=== PATIENT | male | born 1965 | race Two or more races ===

== ENCOUNTER 2020-09-10 15:00 | Outpatient (RCR) | payer MEDICAID, SELFPAY | END 2020-09-30 09:41 | disposition other institution (70) | LOC: HO.PT 15:00 | PROVIDERS: PCP Nurse Practitioner Family; Visit Provider Emergency Medicine | DX: M25.561 Pain in right knee (principal); G89.29 Other chronic pain | CPT/HCPCS: 97110; 97140 ==

== ENCOUNTER 2020-09-19 18:52 | Outpatient (REF) | payer MEDICAID, SELFPAY ==
--- NOTE | 2020-09-19 18:53 | MR_ITS ---
EXAMINATION: MR KNEE WITHOUT CONTRAST, RIGHT CLINICAL INFORMATION: Right knee pain. COMPARISON: 08/06/2020 TECHNIQUE: MRI of the knee without contrast was performed using routine sequences on a high-field scanner. FINDINGS: MENISCI: Medial Meniscus: There is abnormal increased intrasubstance signal within the medial meniscal body. A subtle linear focus of increased signal (image 10/30 of series 5) contacts the superior surface near the free edge margin, concerning for a small horizontal tear. Lateral Meniscus: There is a subtle horizontal free edge tear at the lateral meniscal body. Meniscal body is partially extruded laterally. A small longitudinal tear is also suspected in the superior surface of the anterior horn lateral meniscus as well. A parameniscal cyst at the anterolateral margin of the lateral meniscus measures 3 cm in length and 1 x 0.7 cm in cross-section. Fraying of the undersurface of the posterior root insertion is noted. LIGAMENTS: Cruciate: Intact Collateral: Intact EXTENSOR MECHANISM: Insall-Salvati ratio is 0.75, indicating patella baja. Enthesopathic spurring is present at the quadriceps tendon insertion on the patella. There is mild patellar tendinosis at the origin on the patella. ARTICULAR CARTILAGE/BONE: Patellofemoral Compartment: There is mild to moderate generalized chondral thinning at the patella, more pronounced at the lateral patellar facet, with full-thickness chondral fissuring at the lateral facet and median ridge. Small marginal osteophytes. Mild matter, thinning is also evident at the trochlea, more pronounced at the lateral facet and central trochlear groove with foci of fullness condyle fissuring and small foci of subchondral cystic change. Medial Compartment: Small marginal osteophytes. There is mild chondral thinning at the anterior half of the medial femoral condyle weightbearing surface. Lateral Compartment: There is mild to moderate articular cartilage loss at the posterior third of the lateral tibial plateau with full-thickness fissuring and subchondral edema. More mild chondral thinning is present at the lateral femoral condyle weightbearing surface with full-thickness chondral fissuring. Additional chondral fissuring is present at the posterior nonweightbearing surface along its superior margin. JOINT FLUID AND BURSAE: Small joint effusion. No Carpenter's cyst. There is a 1.3 x 0.5 x 0.5 cm chondral fragment in the popliteus tendon sheath. MR/MR knee RT wo con IMPRESSION: 1. Horizontal and longitudinal tear at the body and anterior horn of the lateral meniscus, respectively, with an associated 3 cm parameniscal cyst 2. Probable small horizontal tear at the junction of the posterior horn and body of the medial meniscus. 3. Mild to moderate patellofemoral and lateral compartment osteoarthritis. 4. Small joint effusion. 5. Patella baja 6. A 1.3 cm loose body in the popliteus tendon sheath.
== END 2020-09-19 18:53 | disposition home or self-care (01) ==
LOC: HO.MRI 18:52
PROVIDERS: PCP Family Medicine; Visit Provider Family Medicine
DX: M25.561 Pain in right knee (principal)
CPT/HCPCS: 73721

== ENCOUNTER 2020-11-11 15:09 | Outpatient (REF) | payer MEDICAID, SELFPAY | END 2020-11-11 15:10 | disposition home or self-care (01) | LOC: HO.LAB 15:09 | PROVIDERS: Visit Provider Internal Medicine | DX: Z20.828 Contact with and (suspected) exposure to other viral communicable diseases (principal) | CPT/HCPCS: C9803; U0003 ==

== ENCOUNTER → 2020-11-20 15:14 | Outpatient (BNVA) | payer MEDICAID, SELFPAY | PROVIDERS: PCP Family Medicine; Visit Provider Internal Medicine Pulmonary Disease | DX: G47.33 Obstructive sleep apnea (adult) (pediatric) (principal) | CPT/HCPCS: 99202 ==

== ENCOUNTER 2020-12-30 12:55 | Outpatient (REF) | payer MEDICAID, SELFPAY ==
--- NOTE | 2020-12-30 13:00 | XR_ITS ---
EXAMINATION: XR HIP, LEFT CLINICAL INFORMATION: Left hip pain. COMPARISON: None TECHNIQUE: Two views of the left hip. FINDINGS: Moderate joint space narrowing with subchondral sclerosis and subchondral cystic change. Marginal osteophytes. No fracture or dislocation. Symphysis pubis subchondral cirrhosis and marginal osteophytes. XR/XR hip LT min 2V IMPRESSION: Moderate left hip osteoarthritis. Mild degenerative arthritis at the symphysis pubis.
== END 2020-12-30 12:56 | disposition home or self-care (01) ==
LOC: HO.XRAY 12:55
PROVIDERS: PCP Family Medicine; Visit Provider Family Medicine
DX: M25.552 Pain in left hip (principal)
CPT/HCPCS: 73502

== ENCOUNTER → 2020-12-31 13:26 | Outpatient (BNVA) | payer MEDICAID, SELFPAY | PROVIDERS: PCP Family Medicine; Visit Provider Internal Medicine Pulmonary Disease ==

== ENCOUNTER → 2021-01-01 09:59 | Outpatient (REF) | payer MEDICAID, SELFPAY | LOC: HO.SL 09:59 | PROVIDERS: Visit Provider Internal Medicine Pulmonary Disease | DX: G47.33 Obstructive sleep apnea (adult) (pediatric) (principal) | CPT/HCPCS: 95806 ==

== ENCOUNTER → 2021-01-21 08:42 | Outpatient (BNVA) | payer MEDICAID, SELFPAY | PROVIDERS: PCP Family Medicine; Visit Provider Orthopaedic Surgery | DX: M70.62 Trochanteric bursitis, left hip (principal); M54.5 Low back pain | CPT/HCPCS: 99212 ==

== ENCOUNTER → 2021-01-23 12:46 | Outpatient (BNVA) | payer MEDICAID, SELFPAY | PROVIDERS: PCP Family Medicine; Visit Provider Internal Medicine Pulmonary Disease | DX: G47.33 Obstructive sleep apnea (adult) (pediatric) (principal) | CPT/HCPCS: 99212 ==

== ENCOUNTER 2021-02-24 16:00 | Outpatient (RCR) | payer MEDICAID, SELFPAY ==
--- NOTE | 2021-02-12 14:26 | MHC.PT.EP ---
[facility] [place] [facility] [place] [facility] [place] [facility] [address] [place] [address] [phone] F: [phone] F: [phone] F: [phone] F: [phone] Physical Therapy Plan of Care Date of Evaluation: 02/11/21 Date of Surgery: N/A Diagnosis: trochanteric bursitis of L hip Assessment: pt presents to physical therapy with pain, decreased range of motion, decreased strength, impaired functional mobility, impaired postural awareness, and gait deviations. pt is a good candidate for skilled PT due to age, potential remediation of impairments, typical disease/condition progression and prognosis, comorbidities, and motivation. pt would benefit from tailored strengthening and stretching exercise program, functional training, gait training, postural re-training, neuromuscular re-education, modalities as needed for pain, equipment safety demonstration. Frequency and Duration: The patient will be seen 2x/wk for 5 wks Short Term Goals: pt will be I w/ HEP to promote self-management of condition. pt will improve lumbar flexion by 25% to promote ease in reaching for objects on the ground. Lieutenant Governor Goals: pt will report statistically significant improvement of self-reported outcome measure, LEFI, to promote self-management of condition. pt will report <2/10 L hip pain w/ sit to stand transfers x5 reps to facilitate full return to functional mobility. Treatment Plan: Modalities to reduce pain, spasms and effusion. Manual therapy to restore motion and function. Therapeutic exercise to improve strength and flexibility. Neuromuscular re-education for posture and balance. Therapeutic activities to return to functional activities of daily living. Electronically signed by: Vandana Martin PT, DPT Please sign and return to therapist. Thank you for your referral.
--- NOTE | 2021-03-10 10:49 | MHC.PT.DC ---
[facility] [place] [facility] [place] [facility] [place] [facility] [address] [place] [address] [phone] F: [phone] F: [phone] F: [phone] F: [phone] Physical Therapy Discharge Report Diagnosis: trochanteric bursitis of L hip Date of Surgery: N/A Date of Evaluation: 02/11/21 Date of Discharge: 03/10/21 Treatments to Date: 3 Cancellations to Date: 0 No Shows to Date: 4 Discharge Status: Visit Non-compliance Discharge Summary: The patient has no showed four consecutive appointments. Per [facility] policy he is being discharged. He had poor home exercise program compliance while in physical therapy. This is his second time being discharged from physical therapy due to visit non-compliance in less than a year. Electronically signed by: Vandana Martin PT, DPT Please sign and return to therapist. Thank you for your referral.
== END 2021-03-10 10:50 | disposition other institution (70) ==
LOC: HO.PT 16:00
PROVIDERS: PCP Family Medicine; Visit Provider Orthopaedic Surgery
DX: M70.62 Trochanteric bursitis, left hip (principal)
CPT/HCPCS: 97110; 97161

== ENCOUNTER → 2022-02-06 08:29 | Outpatient (BNVA) | payer MEDICAID, SELFPAY | PROVIDERS: PCP Family Medicine; Visit Provider Physician Assistant | DX: M16.12 Unilateral primary osteoarthritis, left hip (principal) | CPT/HCPCS: 99212 ==

== ENCOUNTER 2022-04-08 13:18 | Outpatient (REF) | payer MEDICAID, SELFPAY ==
--- NOTE | ~2022-04-08 | FL_ITS ---
EXAMINATION: XR ARTHROGRAM HIP, LEFT CLINICAL INFORMATION: Pain. For steroid injection. COMPARISON: Hip x-ray of 12/30/2020. TECHNIQUE: Intra-articular injection of 80 mg of Depo-Medrol mixed with 4 mL of bupivacaine and 4 mL of lidocaine. FINDINGS: Informed consent was obtained from the patient prior to the procedure. During this process, the procedure and potential alternatives were explained, along with the intended outcome and benefits. The risks of the procedure, as well as the risk of not doing the procedure, were discussed. The patient was given the opportunity to ask questions regarding the procedure and appeared competent to make medical decisions. A signed consent form which documents this discussion was placed in the medical record. Using sterile technique and fluoroscopic guidance, a 22-gauge spinal needle was directed down onto the left femoral neck. A small amount of contrast was administered demonstrating intra-articular positioning of the needle. A combination of 80 mg of Depo-Medrol mixed with 4 mL of bupivacaine and 4 mL of 1% lidocaine were instilled into the left hip joint space. The patient did have relief of symptoms after the injection. FLUOROSCOPY TIME: 0.1 minutes DOSE AREA PRODUCT: 4.254 Gy-cm2 (pearce-centimeter squared) FL/FL arthrogram hip LT IMPRESSION: Intra-articular steroid injection of the left hip, as described.
== END 2022-04-08 13:19 | disposition home or self-care (01) ==
LOC: HO.XRAY 13:18
PROVIDERS: Visit Provider Physician Assistant
DX: M16.12 Unilateral primary osteoarthritis, left hip (principal)
CPT/HCPCS: 27093; 73525

== ENCOUNTER 2022-05-04 09:03 | Outpatient (REF) | payer MEDICAID, SELFPAY ==
--- NOTE | ~2022-05-04 | XR_ITS ---
EXAMINATION: XR PELVIS CLINICAL INFORMATION: Pain COMPARISON: Previous left hip x-ray December 2020 TECHNIQUE: AP view of the pelvis. FINDINGS: Bone alignment is normal. No fracture or dislocation is seen. There is bilateral hip arthritis, left greater than right. Soft tissues are unremarkable. There are degenerative changes of the visualized lower lumbar spine. XR/XR pelvis 1-2V IMPRESSION: Bilateral hip arthritis, left greater than right.
== END 2022-05-04 09:04 | disposition home or self-care (01) ==
LOC: HO.HOSX 09:03
PROVIDERS: Visit Provider Orthopaedic Surgery
DX: M25.552 Pain in left hip (principal); M16.12 Unilateral primary osteoarthritis, left hip; J44.9 Chronic obstructive pulmonary disease, unspecified; R06.83 Snoring; R06.00 Dyspnea, unspecified; G47.33 Obstructive sleep apnea (adult) (pediatric); E66.3 Overweight; I10 Essential (primary) hypertension; F17.210 Nicotine dependence, cigarettes, uncomplicated; Z99.89 Dependence on other enabling machines and devices
CPT/HCPCS: 72170; 99212

== ENCOUNTER 2022-06-05 08:34 | Outpatient (REF) | payer MEDICAID, SELFPAY ==
--- NOTE | 2022-06-05 12:58 | PFT_ITS ---
FLOWS: FEV1 76% of predicted at 2.99 L. FVC 77% of predicted at 3.86 L. FEV1 to FVC ratio of 0.77. No bronchodilator response. LUNG VOLUMES: Total lung capacity 82% of predicted at 6.01 L. Residual volume 110% of predicted at 2.52 L. Slow vital capacity 69% of predicted at 3.49 L. Expiratory reserve volume 41% of predicted at 0.64 L. Diffusion capacity is mildly decreased. IMPRESSION: No obstructive or restrictive ventilatory defect. No bronchodilator response. Decreased expiratory reserve volume suggests extrathoracic restriction likely secondary to abdominal obesity. Decreased diffusion capacity suggests emphysema. MD PAYAL Beasley/MODL / [id number]
== END 2022-06-05 08:35 | disposition home or self-care (01) ==
LOC: HO.RESP 08:34
PROVIDERS: PCP Registered Nurse Community Health; Visit Provider Internal Medicine Pulmonary Disease
DX: J44.9 Chronic obstructive pulmonary disease, unspecified (principal); R06.00 Dyspnea, unspecified
CPT/HCPCS: 94060; 94727; 94729

== ENCOUNTER → 2022-06-22 12:57 | Outpatient (BNVA) | payer MEDICAID, SELFPAY | PROVIDERS: PCP Registered Nurse Community Health; Visit Provider Physician Assistant | DX: M19.011 Primary osteoarthritis, right shoulder (principal) | CPT/HCPCS: 20610; 99212; J1040 ==

== ENCOUNTER → 2022-07-02 08:46 | Outpatient (REF) | payer MEDICAID, SELFPAY | LOC: HO.CARD 08:46 | PROVIDERS: Visit Provider Internal Medicine | DX: R00.2 Palpitations (principal); R42 Dizziness and giddiness; I10 Essential (primary) hypertension | CPT/HCPCS: 93005; 99202 ==

== ENCOUNTER 2022-07-02 13:18 | Emergency (ER) | payer MEDICAID, SELFPAY ==
--- NOTE | 2022-07-02 13:25 | ED_ITS ---
HPI - General Adult General Chief complaint: Extremity Injury, Upper Stated complaint: Chainsaw cut Time Seen by Provider: 07/02/22 13:25 Source: patient Mode of arrival: ambulatory Limitations: no limitations History of Present Illness HPI narrative: Patient is a 56 year old male presenting to the emergency department today with a left hand injury. Patient states that he was cutting a vine when the vine wrapped in the chain and pulled the entire chain saw back into his left hand. Patient denies any dizziness, lightheadedness, abdominal pain, nausea, vomiting, fever, chills, blurry vision, double vision, loss of vision, chest pain, difficulty breathing, shortness of breath, back pain, night sweats, pain with urination, increased urinary frequency, increased urinary urgency, blood in his urine or stool, syncope or a near syncopal episode, bowel incontinence, bladder incontinence, bowel retention, bladder retention, or any other complaints at this time. Onset (ago): minute(s) Location: left and upper extremity Radiation: non-radiation Severity: mild Severity scale (1-10): 3 Quality: dull Pain Consistency: constant Relieving factors: none Exacerbating factors: none Associated symptoms: denies other symptoms Treatments prior to arrival: none Related Data Home Medications Medication Instructions Recorded Confirmed albuterol sulfate 90 mcg/actuation 1 inh inhalation QID 11/20/20 07/02/22 aerosol inhaler (ProAir HFA) methadone 5 mg tablet 5 mg PO DAILY 11/20/20 07/02/22 amlodipine 10 mg tablet 10 mg PO DAILY 01/21/21 07/02/22 albuterol sulfate 2.5 mg/3 mL mg inhalation TID 05/04/22 07/02/22 (0.083 %) solution for nebulization bupropion HCl 150 mg 24 hr tablet, 150 mg PO QAM 05/04/22 07/02/22 extended release chlorthalidone 25 mg tablet 25 mg PO DAILY 05/04/22 07/02/22 diclofenac sodium 75 mg 71 mg PO BID 05/04/22 07/02/22 tablet,delayed release meclizine 25 mg tablet 25 mg PO TID PRN 05/04/22 07/02/22 omeprazole 20 mg capsule,delayed 20 mg PO abdominal pain 05/04/22 07/02/22 release Previous Rx's Medication Instructions Recorded umeclidinium 62.5 mcg-vilanterol 1 inh inhalation DAILY 30 days #1 06/05/22 25 mcg/actuation powdr for ea inhalation (Anoro Ellipta) cephalexin 500 mg capsule 500 mg PO Q6H 7 days #28 caps 07/02/22 Allergies Allergy/AdvReac Type Severity Reaction Status Date / Time No Known Allergies Allergy Verified 07/02/22 08:31 Review of Systems Constitutional: Constitutional: Reports no additional constitutional complaints, Denies chills, Denies fever(s) and Denies night sweats Eyes: Eyes: Reports no additional eye complaints, Denies blurry vision, Denies change in vision, Denies diplopia, Denies eye discharge, Denies loss of vision and Denies eye pain ENT: Denies dizziness Cardiovascular: Cardiovascular: Reports no additional cardiovascular complaints, Denies chest pain, Denies lightheadedness, Denies Loss of Consciousness and Denies dyspnea Respiratory: Respiratory: Reports no additional respiratory complaints and Denies dyspnea Gastrointestinal: Gastrointestinal: Reports no additional gastrointestinal complaints, Denies abdominal pain, Denies melena, Denies hematochezia, Denies change in bowel habits and Denies change in stool character Genitourinary: Genitourinary: Reports no additional male genitourinary complaints, Denies hematuria, Denies oliguria, Denies difficulty urinating, Denies dysuria, Denies urinary frequency, Denies urinary hesitancy, Denies urinary incontinence and Denies urinary urgency Musculoskeletal: Musculoskeletal: Reports no additional musculoskeletal complaints, Denies numbness and Denies tingling Comments: left hand injury Neurologic: Denies dizziness, Denies loss of vision, Denies numbness and Denies tingling Psychiatric: Psychiatric: Reports no additional psychiatric complaints Endocrine: Endocrine: Reports no additional endocrine complaints Hematologic/Lymphatic: Hematologic/Lymphatic: Reports no additional hematologic/lymphatic complaints Allergic/Immunologic: Allergic/Immunologic: Reports no additional allergic/immunologic complaints [facility] Past Medical History Attestation statement: The following information was validated with the patient. Source: old records reviewed Medical History Hypertension Surgical History No pertinent past surgical history Family History Family History Father No problems noted. Mother No problems noted. Social History Social History Patient Tobacco Use Status: Current everyday Tobacco user Cigarette Packs Per Day: 1 Advance Directives: No Advance Directives Information Provided: No Current occupational status: unemployed Current occupation: Right Handed Physical Exam ED Vital Signs: Vital Signs - 24 hr 07/02/22 13:28 Pulse Rate 87 Respiratory Rate 16 Blood Pressure 142/91 H Pulse Oximetry 95 Oxygen Delivery Method Room Air BMI result Body Mass Index 32.1 Const General: cooperative, no acute distress, alert and awake Nutritional Appearance: well nourished Orientation/consciousness: patient oriented x3 Limitations: no limitations HENMT Head: Yes normal to inspection and Yes atraumatic Ears: hearing grossly normal bilaterally and external ears normal General nose exam: Normal external nose present, no nasal discharge noted and no epistaxis Face and sinus: Yes normal facial exam, No abrasion and No laceration Mouth: Normal oral and palatal mucosa present, no drooling and no muffled voice Eyes General: appearance normal, both eyes and all related structures Periorbital: periorbital findings normal Eyelids: Yes eyelids normal Conjunctivae: conjunctivae normal Pupils: Equal, round and reactive pupils present EOM: EOMs intact bilaterally Neck Neck: Yes normal visual inspection, Yes full ROM and Yes no lymphadenopathy Chest Chest palpation & inspection: normal inspection of the chest Resp Effort & Inspection: normal respiratory effort and able to speak in complete sentences Auscultation: clear to auscultation bilaterally Cardio Rate: regular rate Rhythm: regular rhythm GI Inspection: Yes normal to inspection Skin Other: 5cm laceration to the left dorsal hand in the web space between the thumb and the index finger 1cm laceration just proximal to the previously described laceration Neuro General: patient oriented x3 and moves all extremities Cranial nerves: Yes Equal, round and reactive pupils present Cognition (Neuro): normal cognition Motor exam (neuro): 5/5 motor strength present throughout Sensory Exam: Normal double simultaneous stimulation for sensation Coordination: [id number] test normal Extrem General: Yes full ROM and Yes capillary refill normal Psych Appearance: grossly normal Mental Status: mental status grossly normal Affect: normal affect Attitude: cooperative Thought process: Normal thought process present Thought content: Normal thought content present Insight: Good insight present (Psych) Procedures Laceration Laceration 1: Site: hand Side (If applicable): left Size (cm): 5 Description: irregular Depth: simple, single layer Local Anesthetic: lidocaine 1% Amount of anesthesia used (mL): 3 Pre-repair: wound explored, irrigated extensively and deep structures intact Skin layer closed with: other (prolene) Size (cm): 4-0 Number of sutures: 5 Technique: simple, interrupted Laceration 2: Site: hand Side (If applicable): left Size (cm): 1 Description: linear Depth: simple, single layer Local Anesthetic: lidocaine 1% Amount of anesthesia used (mL): 1 Pre-repair: wound explored, irrigated extensively and deep structures intact Skin layer closed with: other (prolene) Size (cm): 4-0 Number of sutures: 1 Technique: simple, interrupted Medical Decision Making MDM Narrative Medical decision making narrative: Patient is a 56 year old male presenting to the emergency department today with a left hand injury. Patient's physical exam showed a 5cm laceration to the dorsal aspect of the left hand in the web space between the thumb and index finger with another 1cm laceration just proximal to that. No active bleeding. I explained my physical exam findings to the patient. I answered all questions asked by the patient. Patient's lacerations were repaired, without incident. I stressed the importance of the patient taking his medication as prescribed. I stressed the importance of the patient following up with his primary care provider. I stressed the importance of the patient returning to the emergency department immediately if his symptoms were to worsen or if he were to develop any dizziness, shortness of breath, difficulty breathing, chest pain, blurry vision, loss of vision, nausea, vomiting, abdominal pain, fever, chills, back pain, or any other complaints. Patient verbalized agreement and understanding with this treatment plan and discharge. Differential Diagnosis Differential Diagnosis: left hand laceration Medical Records Medical records reviewed: Yes I reviewed the patient's medical records. Discharge Plan Discharge Clinical Impression: Laceration of hand Patient Disposition: Home, Self-Care Instructions: Care For Your Stitches (ED), Skin Adhesive Care (ED) Additional Instructions: Do NOT get your sutured area wet for 7 days. Do NOT soak the sutured area. Have your sutures removed in 10-14 days. TAKE YOUR ANTIBIOTIC PERSCRIBED. Follow up with your primary care provider. Return to the emergency department immediately if your symptoms worsen or if you develop any dizziness, shortness of breath, difficulty breathing, chest pain, blurry vision, loss of vision, nausea, vomiting, abdominal pain, fever, chills, back pain, or any other complaints. Prescriptions: New cephalexin 500 mg capsule 500 mg PO Q6H 7 Days Qty: 28 0RF No Action Anoro Ellipta 62.5-25 mcg/actuation blister with device 1 inh inhalation DAILY 30 Days Qty: 1 6RF albuterol sulfate [ProAir HFA] 90 mcg/actuation HFA aerosol inhaler 1 inh inhalation QID methadone 5 mg tablet 5 mg PO DAILY amlodipine 10 mg tablet 10 mg PO DAILY diclofenac sodium 75 mg tablet,delayed release (DR/EC) 71 mg PO BID bupropion HCl 150 mg tablet extended release 24 hr 150 mg PO QAM omeprazole 20 mg capsule,delayed release(DR/EC) 20 mg PO albuterol sulfate 2.5 mg /3 mL (0.083 %) solution for nebulization inhalation TID meclizine 25 mg tablet 25 mg PO TID PRN chlorthalidone 25 mg tablet 25 mg PO DAILY Referrals: [facility] [Physician] - (Follow up with your primary care provider. ) Interventions: ED Discharge Assessment Last Done: 07/02/22 14:28 Discharge Date/Time: 07/02/22 14:30 Print Language: Wolof
[2022-07-02 13:28] VITALS: BP 142/91; PULSE 87; RESP 16; O2SAT 95; BMI 32.1
[2022-07-02] MEDS: Diphth,Pertus(ACell),Tet Adult 0.5 ML SYRINGE IM (14:20)
== END 2022-07-02 14:30 | disposition home or self-care (01) ==
PROVIDERS: Emergency Provider Emergency Medicine
DX: S61.412A Laceration without foreign body of left hand, initial encounter (principal); W29.3XXA Contact with powered garden and outdoor hand tools and machinery, initial encounter; Y93.H2 Activity, gardening and landscaping; Y92.017 Garden or yard in single-family (private) house as the place of occurrence of the external cause; Y99.9 Unspecified external cause status
CPT/HCPCS: 12002; 90471; 90715; 99283; 99284

== ENCOUNTER → 2022-08-07 09:27 | Outpatient (REF) | payer MEDICAID, SELFPAY ==
--- NOTE | 2022-08-07 09:30 | CA_ITS ---
Transthoracic Echocardiogram Patient (Last, First, Middle): Amaury Bermeo, Gender: Male Date of : 1965 Age: 56 Procedure Date: 08/07/2022 Procedure Type: Transthoracic Echocardiogram Location: OP Height: 180.34 cm Weight: 104.33 kg BSA: 2.24 m2 Heart Rate: bpm BP: 130 / 70 mmHg Final Expense Agent: TO Referring MD: Manuel Briones MD Symptoms: R00.2 - Palpitations Study Quality: Fair Conclusions: - Normal left ventricular size, thickness, and systolic function. The visually estimated ejection fraction is between 60-65%. Abnormal diastolic function is noted. - Normal right ventricular cavity size and systolic function. - The left atrium is likely dilated. Findings Left Ventricle Normal left ventricular size, thickness, and systolic function. The visually estimated ejection fraction is between 60-65%. Abnormal diastolic function is noted. Right Ventricle Normal right ventricular cavity size and systolic function. Atria The left atrium is likely dilated. Aortic Valve Normal aortic valve structure and function. There is no aortic valve stenosis. There is no aortic valve regurgitation. Mitral Valve Normal mitral valve structure and function. There is trace mitral valve regurgitation. There is no mitral valve stenosis. Pulmonic Valve The pulmonic valve is likely normal. Tricuspid Valve Normal tricuspid valve structure. There is no tricuspid valve regurgitation. Normal right atrial pressure. There is no evidence of pulmonary hypertension. Great Vessels All visible segments of the aorta are normal in size. The visualized portions of the pulmonary artery and branches are normal. Venous The inferior vena cava is normal in size and collapses greater than 50% with inspiration. Pericardium/Pleural There is no evidence of pericardial effusion. Prior Study Comparison No prior study available for comparison. Measurements 2D Linear Measurements IVSd: 1.14 0.6-0.9/0.6-1.0 cm LVIDd: 4.99 3.9-5.3/4.2-5.9 cm LVIDd Index: 2.23 2.4-3.2/2.2-3.1 cm/m2 LVIDs: 3.11 2.0-3.6 cm LVPWd: 0.82 0.7-1.1 cm LA Diam: 3.60 2.7-3.8/3.0-4.0 cm LAIDs Index: 1.61 1.5-2.3 cm/m2 LV Mass: 219.16 67-162/88-224 g LV Mass Index: 97.84 43-95/49-115 g/m2 LVOT Diam: 2.20 3.0+(-)1.3 cm 2D Systolic Function EF 4C: 59.40 >55% EF 2C: 60.60 >55% EF BiP: 60.20 >55% Mitral Valve MV Pk E: 0.96 MV PK A: 0.66 MV Decel Time: 265.00 E/A: 1.50 E'Lateral: 10.30 E'Medial: 9.03 E/E' Med: 10.70 E/E' Lat: 9.40 PHT: 78.00 MVA PHT: 2.82 Decel [place]: 3.64 Aortic Valve AoV Pk Kishan: 1.48 AoV Mn Kishan: 0.98 AoV VTI: 0.32 AoV Pk Grad: 9.00 Aov Mn Grad: 4.00 CELENA Cont.VTI: 3.05 LVOT LVOT Pk Kishan: 1.25 LVOT Mn Kishan: 0.74 LVOT VTI: 0.25 LVOT Pk Grad: 6.00 LVOT Mn Grad: 3.00 LVOT Diam: 2.20 LVOT Area: 3.80 Diastolic Function MV Pk E: 0.96 MV Pk A: 0.66 E/A: 1.50 E'Medial: 9.03 E/E' Med: 10.70 E' Laterial: 10.30 E/E' Lat: 9.40 Right Ventricle TAPSE (mm): 23.00 TVS' Kishan: 12.40 Tricuspid Valve TR Pk Kishan: 1.59 TR Pk Grad: 10.00 RA Press: 3.00 RVSP: 13.00 Great Vessels Aorta Sinus of Valsalva: 3.61 2.0-3.[address] [place]: 3.06 1.7-3.4 cm Ao Asc: 3.70 2.1-3.4 cm Updated in Other Vendor System with Status of Final Miguelito Drake MD electronically signed on 08/09/2022 4:56:22 PM with status of Final
--- NOTE | 2022-08-07 09:30 | ECG_ITS ---
Hook-up date: 2022-08-07 09:43:00 Duration: 47:59:00 Test Indications: PALPITATIONS Medications: 540026 QRS complexes * Ventricular ectopics which represent % of total QRS comp. 19 Supraventricular ectopics which represent <1 % of total QRS comp. * Paced QRS complexs which represent % of total QRS comp. VENTRICULAR ECTOPY * Isolated * Bigeminal Cycles * Couplets * Runs * Beats in Runs * Beats LONGEST at * BPM at :: -- * Beats FASTEST at * BPM at :: -- SUPRAVENTRICULAR ECTOPY 17 Isolated 1 Couplets 0 Runs 0 Beats in Runs * Beats LONGEST at * BPM at :: -- * Beats FASTEST at * BPM at :: -- HEART RATES 45 MIN at 05:38:33 2022-08-08 68 AVG 115 MAX at 08:59:09 2022-08-08 LONGEST RR 1.3520 secs at 05:43:30 2022-08-08 S-T LEVELS Channel 1 - 128 mm at 09:43:00 2022-08-07 - 128 mm at 09:43:00 2022-08-07 Channel 2 - 128 mm at 09:43:00 2022-08-07 - 128 mm at 09:43:00 2022-08-07 Channel 3 - 128 mm at 02:90:21 -- - 128 mm at 02:90:21 Underlying rhythm is sinus; Average ventricular rate 68/min; range 45 to 115/min; Very rare supraventricular ectopy; No sustained arrhythmias; Patient did not report any symptoms in the diary Referred By: Suleman Darling Overread By: SULEMAN DARLING
== END ==
LOC: HO.CARD 09:27
PROVIDERS: Visit Provider Internal Medicine
DX: R00.2 Palpitations (principal)
CPT/HCPCS: 93226; 93306

== ENCOUNTER → 2022-09-01 13:00 | Outpatient (BNVA) | payer MEDICAID, SELFPAY | PROVIDERS: PCP Family Medicine; Referring Provider Family Medicine; Visit Provider Nurse Practitioner Family | DX: R00.2 Palpitations (principal); R42 Dizziness and giddiness; I10 Essential (primary) hypertension | CPT/HCPCS: 99212 ==

== ENCOUNTER → 2022-10-06 08:02 | Outpatient (REF) | payer MEDICAID, SELFPAY ==
--- NOTE | ~2022-10-06 | NM_ITS ---
Myocardial perfusion study Indication: Palpitations and dizziness with risk factors to evaluate for myocardial ischemia Technique: The patient was brought in for a Lexiscan perfusion study on 10/06/2022. Patient performed low-level exercise and was injected 0.4 mg of Lexiscan intravenously. Within a minute of injection, 30 mCi of sestamibi was given intravenously. Images were obtained using the SPECT gamma camera interlaced with the gating device. Images were obtained in supine position. Resting perfusion study was performed on 10/06/2022. Patient was administered 10 mCi of sestamibi intravenously at rest. Images were then obtained in supine position. Images obtained with and without CT attenuation. Total DLP 156 mGy-cm. Images were processed with the software and compared side to side in short axis, horizontal long axis and vertical long axis views. Findings: The stress perfusion study showed non attenuated images show mildly reduced uptake in the basal lateral wall of the LV myocardium as well as the basal inferior wall of the LV myocardium. Attenuation corrected images show normal uptake of radiotracer in all segments of LV myocardium. The gated study shows normal LV systolic function with calculated LVEF of 56%. LV cavity is normal in size. The gated study shows normal systolic wall thickening and contraction of segments. Resting study shows no change in perfusion pattern compared to stress perfusion study. Gating at rest reveals normal systolic wall motion with ejection fraction at 72%. The findings are consistent with normal myocardial perfusion. NM/NM sana perf SPECT rest & str Impression: 1. Myocardial perfusion imaging study shows normal myocardial perfusion 2. Gated LVEF is 56% 3. Transient ischemic dilatation not present EKG is nondiagnostic for ischemia
--- NOTE | 2022-10-06 08:07 | CA_ITS ---
Acquisition Time: 2022-10-06 09:49:06 Total Exercise Time: 00:02:00 Test Indications: preop Medications: see chart Protocol: LEXISCAN Max HR: 086 BPM 53% of Pred: 162 BPM Max BP: 124/068 mmHG Max Work Load: 1.0 METS Pharmacological stress test with Lexiscan injection, while sitting and kicking his legs, without anginal symptoms, without arrythmia, with normotensive response to injection, with nondiagnostic EKG for ischemia. In recovery he reported feeling weird and was treated with Aminophylline 75mg IVP to reverse Lexican with resolution of symptom. Nuclear images pending. Test reviewed with Dr Drake. Referred By: Shirlene Robert Overread By: SHIRLENE ROBERT
== END ==
LOC: HO.CARD 08:02
PROVIDERS: Visit Provider Nurse Practitioner Family
DX: R00.2 Palpitations (principal); R42 Dizziness and giddiness; I10 Essential (primary) hypertension
CPT/HCPCS: 78452; 93017; A9500; J0280; J2785

== ENCOUNTER → 2022-10-16 10:39 | Outpatient (BNVA) | payer MEDICAID, SELFPAY | PROVIDERS: PCP Family Medicine; Visit Provider Orthopaedic Surgery | DX: M19.011 Primary osteoarthritis, right shoulder (principal); M16.12 Unilateral primary osteoarthritis, left hip | CPT/HCPCS: 20610; 99212; J1100 ==

== ENCOUNTER → 2023-02-04 13:02 | Outpatient (BNVA) | payer MEDICAID, SELFPAY | PROVIDERS: PCP General Practice; Visit Provider Physician Assistant | DX: M16.12 Unilateral primary osteoarthritis, left hip (principal) | CPT/HCPCS: 99212 ==

== ENCOUNTER 2023-02-09 09:48 | Inpatient (IN) | payer MEDICAID, SELFPAY ==
--- NOTE | 2023-01-27 | ECG_ITS ---
Test Reason : COPD, CHILO, HTN Blood Pressure : / mmHG Vent. Rate : 061 BPM Atrial Rate : 061 BPM P-R Int : 154 ms QRS Dur : 084 ms QT Int : 408 ms P-R-T Axes : 076 075 066 degrees QTc Int : 410 ms Normal sinus rhythm Normal ECG When compared with ECG of 21-FEB-2017 02:36, No significant change was found Referred By: Barbara Rodriguez Electronically Signed By:LAM HAGAN MD
[2023-01-27 12:16] VITALS: BP 140/86; PULSE 62; RESP 20; O2SAT 98; BMI 33.5
--- NOTE | 2023-01-27 12:34 | HO.ANESPROP2 ---
Documented by User: Barbara Rodriguez NP 02/08/23 10:00 HPI - Anesthesia Eval Consult details Narrative: 57yo M for Left Hip Total Replacement PCP cleared Cardiac cleared Methadone 60mg daily CHILO without CPAP use. Encouraged use preop Preop labs with elevated K. Repeat lytes DOS. PMFSH Active Problems Active Problems: All Active Problems (Updated 01/27/23 @ 12:31 by Nany Vazquez, RN) CHILO (obstructive sleep apnea) (Acute) Trochanteric bursitis, left hip (Acute) Primary osteoarthritis of left hip (Acute) COPD (chronic obstructive pulmonary disease) (Acute) Arthritis of right glenohumeral joint (Acute) Heart palpitations (Acute) Essential hypertension (Acute) Dizziness (Acute) Preop cardiovascular exam (Acute) Past Medical History Medical History (Updated 01/27/23 @ 12:31 by Nany Vazquez RN) Arthritis Asthma COPD (chronic obstructive pulmonary disease) GERD (gastroesophageal reflux disease) History of depression History of drug abuse History of kidney stones Hx of hepatitis Hypertension Sleep apnea Family History Family History Father No problems noted. Mother No problems noted. Family history of problems with anesthesia: No Surgical History Surgical History (Updated 01/27/23 @ 12:10 by Nany Vazquez RN) History of laryngoscopy History of toe surgery Hx of colonoscopy History of Problems with Anesthesia: No Social History Social History Are you a primary career resource specialist to a significant other at home: No Do you presently have visiting nurse or other home services: No Patient Tobacco Use Status: Current everyday Tobacco user Tobacco use type: Cigarette Cigarette Packs Per Day: 0.5 Cigarettes Per Day: 6 Years Smoked: 30 Smoked in Last 30 Days: Yes Patient Interested in Nicotine Replacement: Yes Patient Given Instructions on How to Stop Smoking: Yes Date Education Initiated: 01/27/23 Second Hand Smoke Exposure: No Use of substances other than those prescribed or required for medical reasons: No Substance Use Type Other:: 3 months ago- marijuana Have you been hit, kicked, punched, or otherwise hurt by someone within the past year? If so, by whom?: No Are you DNR?: No Advance Directives: No Advance Directives Information Provided: Yes ( Sneha - Info Given) Advance Directives on File: No Recently lost weight without trying: No Eating poorly because of decreased appetite: No Nutrition Risks: No Nutritional Risk Current occupational status: unemployed Current occupation: Right Handed Narrative Narrative: No recent illness. No CP. Mild GAMEZ at baseline r/t smoking and COPD Meds Allergies Allergy/AdvReac Type Severity Reaction Status Date / Time No Known Allergies Allergy Verified 01/27/23 12:14 Home Medications Medication Instructions Recorded Confirmed Last Taken Type albuterol sulfate 90 mcg/actuation 1 inh inhalation QID PRN Wheezing 11/20/20 02/04/23 Unknown History aerosol inhaler (ProAir HFA) amlodipine 10 mg tablet 10 mg PO DAILY 01/21/21 02/04/23 02/09/23 History albuterol sulfate 2.5 mg/3 mL 2 mg inhalation TID 05/04/22 02/09/23 02/09/23 History (0.083 %) solution for nebulization bupropion HCl 150 mg 24 hr tablet, 150 mg PO QAM 05/04/22 02/04/23 02/08/23 History extended release meclizine 25 mg tablet 25 mg PO TID PRN Dizziness 05/04/22 02/04/23 Unknown History omeprazole 20 mg capsule,delayed 20 mg PO DAILY abdominal pain 05/04/22 02/04/23 02/09/23 History release nicotine (polacrilex) 4 mg buccal 4 mg buccal Q8H PRN Smoking 09/01/22 02/04/23 Unknown History lozenge Cessation aspirin 81 mg chewable tablet 1 tab PO DAILY 01/26/23 02/04/23 01/26/23 History atorvastatin 40 mg tablet 1 tab PO DAILY 01/26/23 02/04/23 02/08/23 History cetirizine 10 mg tablet 1 tab PO QAM 01/26/23 02/04/23 02/08/23 History chlorthalidone 25 mg tablet 1 tab PO DAILY 01/26/23 02/04/23 02/08/23 History nortriptyline 10 mg capsule 1 cap PO BEDTIME 01/26/23 02/04/23 02/08/23 History methadone 5 mg tablet 61 mg PO DAILY 02/08/23 02/09/23 02/09/23 History Exam Exam Date and Time: January 27, 2023 1234 Height,Weight and Vital Signs: Height 5 ft 11 in Weight 108.862 kg Last Vital Signs Pulse 62 01/27/23 12:16 Resp 20 01/27/23 12:16 BP 140/86 H 01/27/23 12:16 Pulse Ox 98 01/27/23 12:16 O2 Del Method 01/27/23 12:16 Pertinent Lab Results Pertinent Lab Results: Laboratory Tests 01/27/23 01/27/23 13:11 13:11 WBC 8.2 Hgb 13.4 L Hct 41.4 L Plt Count 287 Carbon Dioxide 30 H BUN 17 H Creatinine 0.90 Narrative Narrative: EKG 01/2023 Vent. Rate : 061 BPM ? ? Atrial Rate : 061 BPM ?? P-R Int : 154 ms? QRS Dur : 084 ms ? ? QT Int : 408 ms ? ? ? P-R-T Axes : 076 075 066 degrees ?? QTc Int : 410 ms ? Normal sinus rhythm Normal ECG When compared with ECG of 21-FEB-2017 02:36, No significant change was found ECHO 07/2022 Conclusions: - Normal left ventricular size, thickness, and systolic function. The visually estimated ejection fraction is between 60-65%.? ? ? Abnormal diastolic function is noted.? - Normal right ventricular cavity size and systolic function.? ? - The left atrium is likely dilated. ? NM sana perf SPECT rest & str 09/2022 Impression: ? 1.? Myocardial perfusion imaging study shows normal myocardial perfusion 2.? Gated LVEF is 56% 3. Transient ischemic dilatation not present ? EKG is nondiagnostic for ischemia Airway Mallampati Class: II TM Dist: >3cm Neck ROM: Full Denture: Upper Loose/Missing/Broken Teeth: Yes (Lower molars pulled) Heart: RRR Lungs: CTAB Assessment and Plan Assessment Anesthesia Assessment: Anesthesia Plan Discussed, Smoking Cess. Discussed and PAT Visit Final Anesthetic Review Family History of Problems with Anesthesia: No History of Problems with Anesthesia: No Documented by User: Raheem Hendrickson MD 02/09/23 17:10 HPI - Anesthesia Eval Consult details Narrative: 57yo M for Left Hip Total Replacement Optimized to proceed as per cardiology and PCP Methadone 60mg daily CHILO without CPAP use. Encouraged use preop Preop labs with elevated K. Repeat lytes DOS. Potassium 4.5 DOS PMFSH Past Medical History Medical History (Updated 01/27/23 @ 12:31 by Nany Vazquez RN) Arthritis Asthma COPD (chronic obstructive pulmonary disease) GERD (gastroesophageal reflux disease) History of depression History of drug abuse History of kidney stones Hx of hepatitis Hypertension Sleep apnea Family History Family History Father No problems noted. Mother No problems noted. Surgical History Surgical History (Updated 01/27/23 @ 12:10 by Nany Vazquez RN) History of laryngoscopy History of toe surgery Hx of colonoscopy Social History Social History Are you a primary career resource specialist to a significant other at home: No Do you presently have visiting nurse or other home services: No Patient Tobacco Use Status: Current everyday Tobacco user Tobacco use type: Cigarette Cigarette Packs Per Day: 0.5 Cigarettes Per Day: 6 Years Smoked: 30 Smoked in Last 30 Days: Yes Patient Interested in Nicotine Replacement: Yes Patient Given Instructions on How to Stop Smoking: Yes Date Education Initiated: 01/27/23 Second Hand Smoke Exposure: No Use of substances other than those prescribed or required for medical reasons: No Substance Use Type Other:: 3 months ago- marijuana Have you been hit, kicked, punched, or otherwise hurt by someone within the past year? If so, by whom?: No Are you DNR?: No Advance Directives: No Advance Directives Information Provided: Yes ( Sneha - Info Given) Advance Directives on File: No Recently lost weight without trying: No Eating poorly because of decreased appetite: No Nutrition Risks: No Nutritional Risk Current occupational status: unemployed Current occupation: Right Handed Meds Allergies Allergy/AdvReac Type Severity Reaction Status Date / Time No Known Allergies Allergy Verified 01/27/23 12:14 Home Medications Medication Instructions Recorded Confirmed Last Taken Type albuterol sulfate 90 mcg/actuation 1 inh inhalation QID PRN Wheezing 11/20/20 02/04/23 Unknown History aerosol inhaler (ProAir HFA) amlodipine 10 mg tablet 10 mg PO DAILY 01/21/21 02/04/23 02/09/23 History albuterol sulfate 2.5 mg/3 mL 2 mg inhalation TID 05/04/22 02/09/23 02/09/23 History (0.083 %) solution for nebulization bupropion HCl 150 mg 24 hr tablet, 150 mg PO QAM 05/04/22 02/04/23 02/08/23 History extended release meclizine 25 mg tablet 25 mg PO TID PRN Dizziness 05/04/22 02/04/23 Unknown History omeprazole 20 mg capsule,delayed 20 mg PO DAILY abdominal pain 05/04/22 02/04/23 02/09/23 History release nicotine (polacrilex) 4 mg buccal 4 mg buccal Q8H PRN Smoking 09/01/22 02/04/23 Unknown History lozenge Cessation aspirin 81 mg chewable tablet 1 tab PO DAILY 01/26/23 02/04/23 01/26/23 History atorvastatin 40 mg tablet 1 tab PO DAILY 01/26/23 02/04/23 02/08/23 History cetirizine 10 mg tablet 1 tab PO QAM 01/26/23 02/04/23 02/08/23 History chlorthalidone 25 mg tablet 1 tab PO DAILY 01/26/23 02/04/23 02/08/23 History nortriptyline 10 mg capsule 1 cap PO BEDTIME 01/26/23 02/04/23 02/08/23 History methadone 5 mg tablet 61 mg PO DAILY 02/08/23 02/09/23 02/09/23 History Assessment and Plan Assessment Anesthesia Assessment: Chart Reviewed Final Anesthetic Review NPO: Yes ASA Class: III Final Preanesthetic Review: Meds/Allgs Chart Reviewed, Consent Obtained/Reviewed and Anes Risks/Benef Reviewed Patient Risk: Intermediate Procedure Risk: Intermediate Anesthetic Plan Anesthetic Plan: GA Disposition: Standard PACU
[2023-01-27 14:13] LABS: MRSA Nasal PCR NEGATIVE (Negative); SA Nasal PCR NEGATIVE (Negative)
[2023-01-27 14:57] LABS: Hematocrit 41.4 % (42.0-52.0); Hemoglobin 13.4 g/dl (14.0-18.0); Mean Corpuscular HGB Conc 32.4 g/dl (31.0-36.0); Mean Corpuscular Hemoglobin 28.9 pg (27.0-33.0); Mean Corpuscular Volume 89.2 fL (80.0-98.0); Mean Platelet Volume 10.8 fL (9.4-12.4); Platelet Count 287 X10*3/uL (160-400); Red Blood Count 4.64 X10*6/uL (4.60-5.80); Red Cell Distribution Width 14.6 % (11.0-16.0); White Blood Count 8.2 X10*3/uL (4.8-10.8)
[2023-01-27 15:39] LABS: Anion Gap 12 (12-20); Blood Urea Nitrogen 17 mg/dL (9-16); Calcium 9.2 mg/dL (8.4-10.2); Carbon Dioxide 30 mmol/L (22-29); Chloride 104 mmol/L (96-108); Creatinine Clr Calc Pharmacy 112.2; Estimated Glomerular Filt Rate > 60; Glucose Random 73 mg/dL (60-115); Potassium 5.4 mmol/L (3.3-5.1); Sodium 141 mmol/L (135-145)
[2023-02-09] VITALS (15 sets, daily range): BP systolic 139–192; BP diastolic 60–123; PULSE 62–72; RESP 10–20; TEMP 36.2–37.2; O2SAT 95–100
--- NOTE | ~2023-02-09 | XR_ITS ---
EXAMINATION: XR PELVIS CLINICAL INFORMATION: Status post total left hip replacement. COMPARISON: Pelvic radiographs dated 05/04/2022. TECHNIQUE: AP view of the pelvis. FINDINGS: The patient is status post left hip arthroplasty showing good anatomic alignment and no evidence for hardware malfunction. There is no acute fracture. Mild adjacent soft tissue air is noted. Surgical skin kameron overlie the left lateral soft tissues. XR/XR pelvis 1-2V IMPRESSION: Postsurgical changes. No hardware abnormality.
--- NOTE | 2023-02-09 10:06 | PHA.MEDREC ---
Pharmacy Consult ? Medication Reconciliation Pharmacy has completed the medication reconciliation. Completed by RN verified by pharmacy. Need methadone verification form [facility]
[2023-02-09] MEDS: Lactated Ringers 1,000 ML 100 ML IVCONT ×2 (10:21→20:06)
[2023-02-09] MEDS: oxyCODONE HCl ER 10 MG TAB.ER.12H PO ×2 (10:21→21:00)
[2023-02-09 10:24] LABS: Anion Gap 12 (12-20); Carbon Dioxide 26 mmol/L (22-29); Chloride 109 mmol/L (96-108); Potassium 4.5 mmol/L (3.3-5.1); Sodium 142 mmol/L (135-145)
[2023-02-09 10:37] LABS: COVID-19 Test Negative (Negative); IDNOW Serial# 9DB6401D
--- NOTE | 2023-02-09 12:22 | MHC.SHP ---
Pre-Procedural Eval Section A Date of Service: 02/09/23 The patient is an INPATIENT: No Changes since office visit: No Cold of Flu in the past 2 weeks, No New Medical Problems, No Changes in Medication and No Patient answered all questions The History & Physical has been completed within 30 days and I have reviewed it.: Yes Section B Chief Complaint: LT AARON Allergies: Allergies Allergy/AdvReac Type Severity Reaction Status Date / Time No Known Allergies Allergy Verified 01/27/23 12:14 Plan I have reviewed the history and physical and performed a pertinent physical examination on my patient. No changes have occurred unless specified. Time Spent With Patient Time: Total time managing care of this patient today ____ minutes.
[2023-02-09] MEDS: ceFAZolin Sodium/Dextrose,Iso 2 GM/50 ML PIGGYBACK IV ×2 (13:05→19:10)
[2023-02-09] MEDS: Acetaminophen 1,000 MG/100 ML PIGGYBACK 400 MG IV ×2 (14:55→20:05)
--- NOTE | 2023-02-09 15:06 | P.BOP_ITS ---
Brief Operative Note Date of Service: 02/09/23 Pre-op diagnosis: Left hip OA Post-op diagnosis: same Procedure: Left AARON Implants: Lenora Trident2 54 with 20deg liner Isaac Accolade2 #6 132 deg with + 5 36 ceramic femoral head Surgeon: Aureliano Jama MD Anesthesia: GETA and local Was an Engineer Rf Deployment used for this Procedure?: Yes Engineer Rf Deployment: Ivette Bonilla Estimated blood loss (mL): 300 IV fluids (mL): 1,000 Pathology: other Condition: stable Disposition: PACU
--- NOTE | 2023-02-09 15:19 | P.OP_ITS ---
Operative Note Operative Note Date of Service: 02/09/23 Narrative: Date of Service: 02/09/23 Pre-op diagnosis: Left hip OA Post-op diagnosis: same Procedure: Left AARON Implants: Linden Trident2 54 with 20deg liner Linden Accolade2 #6 132 deg with + 5 36 ceramic femoral head Surgeon: Aureliano Jama MD Anesthesia: GETA and local Was an Road Equipment Operator used for this Procedure?: Yes Road Equipment Operator: Ivette Bonilla Estimated blood loss (mL): 300 IV fluids (mL): 1,000 Pathology: other Condition: stable Disposition: PACU Procedure in detail: Patient was brought into the operating room and placed in the right lateral decubitus position. All bony prominences were well padded and the limb was pre pped and draped in standard sterile fashion. A time-out was called to identify proper site procedure proper surgeon IV antibiotics and 1 g of transaxemic acid were administered. I began by making a curvilinear incision over the posterolateral aspect of the greater trochanter. Dissection was taken down to the tensor fascia which was incised in line with the incision and a Charnley retractor was placed. Cautery was used to maintain hemostasis. The hip was internally rotated and the external rotators were identified. The vessels were cauterized and a full-thickness capsular/external rotator layer was developed starting just proximal to the piriformis. This layer was tagged and a dull Hohmann retractor was placed underneath the neck in the hip was dislocated. A neck cut was made ~1 cm proximal to the lesser trochanter and the head and neck were removed and measured 52mm on the back table. The head was defromed and eburnated. I then removed the labrum and cauterized the fovea. I started with a 46 reamer and medialized to the inner table. I sequentially reamed up to a size 53 and impacted a 54mm cup at 45 degrees of inclination and 20 degrees of version. I then placed a 20 deg posterior lipped liner and turned my attention to the femur. I identified the piriformis insertion and used this as a starting point for my thierno cutter. The medius tendon was protected with a Hibs retractor. A Charnley awl was inserted in the canal and a curved curette used to remove the lateral bone. I irrigated copiously. I then sequentially broached in the patient's natural version to a size 6and placed my trial implants. I used a #6/132/+5 based on my pre-operative template. Using a trail head I took the hip through range of motion. I was satisfied with the stability and length. I removed all instrumentation and copiously irrigated. I placed my final femoral implant and again took the hip through range of motion and was satisfied with the stability and length. The final 5.0 implant was impacted in place and the hip reduced. A Werewolf cautery wand was used to maintain hemostasis over the capsule and meniscal beds, the gutters and peripatellar soft tissues. I then irrigated for 3 minutes with iodine and placed 1 g of local transaxemic acid. I performed a capsular closure with 2.0 fiberwire, Preeti's fascia with 0 Vicryl, subcuticular with 2-0 Vicryl and the skin with kameron. Patient was placed into a sterile dressing. AP radiographs were taken and reviewed and patient was extubated and brought to the recovery room in stable condition. There were no known complications.
[2023-02-09] MEDS: HYDROmorphone HCl 0.5 MG/0.5 ML SYRINGE 0.25 MG IVPUSH ×4 (15:49→16:20)
[2023-02-09] MEDS: 0.9 % Sodium Chloride Flush 3 ML SYRINGE IVFLUSH (17:43)
[2023-02-09] MEDS: Gabapentin 600 MG TABLET PO (17:43)
--- NOTE | 2023-02-09 19:01 | P.CONHOSP_ITS ---
History of Present Illness Data of Consult Service Date: 02/09/23 Requesting physician: Ivette Bonilla Primary Care Provider: Fabiola Perdue MD [facility] Reason for consult: medical management 57-year-old male with history of asthma/COPD, GERD, history of opioid abuse on chronic methadone therapy, hypertension, obstructive sleep apnea noncompliant with CPAP, and osteoarthritis of the left hip admitted to Orthopedic surgery s/p left THR POD 0 with consult placed to Medicine for medical management. He is complaining of 10/10 pain and is writhing in pain in bed. Pain is primarily located in the left knee and radiates down to the foot and occasionally up the medial aspect of the thigh. He is able to extend and flex the knee and has sensation in the left lower extremity. He denies any nausea, vomiting, abdominal pain, lightheadedness, palpitations, shortness of breath, or chest pain. He currently smokes 1/2 pack of cigarettes daily. Denies any ongoing illicit drug use or alcohol use. Review of Systems Review of Systems: Yes all other systems are reviewed and are negative [facility] Medical History Arthritis Asthma COPD (chronic obstructive pulmonary disease) GERD (gastroesophageal reflux disease) History of depression History of drug abuse History of kidney stones Hx of hepatitis Hypertension Sleep apnea Family History Father No problems noted. Mother No problems noted. Surgical History History of laryngoscopy History of toe surgery Hx of colonoscopy Social History Household Members: Family Housing: Apartment Are you a primary child care centre director to a significant other at home: No Do you presently have visiting nurse or other home services: No Patient Tobacco Use Status: Current everyday Tobacco user Tobacco use type: Cigarette Cigarette Packs Per Day: 0.5 Cigarettes Per Day: 10.0 Years Smoked: 30 Smoked in Last 30 Days: Yes Patient Interested in Nicotine Replacement: Yes Patient Given Instructions on How to Stop Smoking: Yes Date Education Initiated: 01/27/23 Second Hand Smoke Exposure: No Use of substances other than those prescribed or required for medical reasons: No Substance Use Type Other:: 3 months ago- marijuana Currently Displaying Signs/Symptoms of Drug Intoxication Withdrawal: No Have you been hit, kicked, punched, or otherwise hurt by someone within the past year? If so, by whom?: No Are you DNR?: No Advance Directives: No Advance Directives Information Provided: Yes ( Sneha - Info Given) Advance Directives on File: No Do you have thoughts of harming others: None Do you have a plan to hurt others: No Plan Recently lost weight without trying: No Eating poorly because of decreased appetite: No Nutrition Risks: No Nutritional Risk Poor oral hygiene: No service: No Current occupational status: unemployed Current occupation: Right Handed Meds Allergies Allergy/AdvReac Type Severity Reaction Status Date / Time No Known Allergies Allergy Verified 01/27/23 12:14 Active Medications: Current Medications Acetaminophen (Acetaminophen 325 Mg Tablet) 650 mg PO Q6H PRN PRN Reason: Pain, Mild (Pain Scale 1-3) Albuterol Sulfate (Albuterol Sulfate 90 Mcg 8 Gm Inhaler) 1 puff INHALE RQID PRN PRN Reason: Wheezing Albuterol Sulfate (Albuterol Sulfate (0.083%) 2.5 Mg/3 Ml Vial.Neb) 2 mg INHALE RTID TRUE Bupropion HCl (Bupropion Hcl Xl 150 Mg Tab.Er.24h) 150 mg PO QAM TRUE Celecoxib (Celecoxib 200 Mg Capsule) 200 mg PO BID TRUE Docusate Sodium (Docusate Sodium 100 Mg Capsule) 100 mg PO BID TRUE Hydromorphone HCl (Hydromorphone Hcl 0.5 Mg/0.5 Ml Syringe) 0.5 mg IVPUSH Q5M PRN; Protocol PRN Reason: Pain, Severe (Pain Scale 7-10) Hydromorphone HCl (Hydromorphone Hcl 0.5 Mg/0.5 Ml Syringe) 0.5 mg IVPUSH Q3H PRN; Protocol PRN Reason: Pain, Severe (Pain Scale 7-10) Lactated Ringer's (Lr) 1,000 mls @ 100 mls/hr IVCONT .Q10H TRUE Stop: 02/10/23 17:17 Cefazolin Sodium/Dextrose (Ancef) 2 gm in 50 mls @ 100 mls/hr IV POSTOP ONE Stop: 02/09/23 19:29 Acetaminophen (Ofirmev) 1,000 mg in 100 mls @ 400 mls/hr IV ONCE ONE Stop: 02/09/23 19:06 Loratadine (Loratadine 10 Mg Tablet) 10 mg PO QAM [facility] Meclizine HCl (Meclizine Hcl 25 Mg Tablet) 25 mg PO TID PRN PRN Reason: Dizziness Methadone HCl (Methadone Hcl 5 Mg Tablet) 61 mg PO DAILY TRUE Nicotine Polacrilex (Nicotine Polacrilex Lozenge 4 Mg Lozenge) 4 mg BUCCAL Q8H PRN PRN Reason: Smoking Cessation Non-Formulary Medication (Umeclidinium-Vilanterol [Anoro Ellipta]) 1 inhalation INHALE DAILY [facility] Nortriptyline HCl (Nortriptyline Hcl 10 Mg Capsule) 10 mg PO BEDTIME TRUE Omeprazole (Omeprazole 20 Mg Capsule.Dr) 20 mg PO DAILY TRUE Oxycodone HCl (Oxycodone Hcl Immed Release 5 Mg Tablet) 10 mg PO Q4H PRN PRN Reason: Pain, Moderate (Pain Scale 4-6 Oxycodone HCl (Oxycodone Hcl Er 10 Mg Tab.Er.12h) 10 mg PO BID [facility] Sodium Chloride (0.9 % Sodium Chloride Flush 3 Ml Syringe) 3 ml IVFLUSH QSHIFT [facility] Last Admin: 02/09/23 17:43 Dose: 3 ml Home Medications Medication Instructions Recorded Confirmed Last Taken Type albuterol sulfate 90 mcg/actuation 1 inh inhalation QID PRN Wheezing 11/20/20 02/04/23 Unknown History aerosol inhaler (ProAir HFA) amlodipine 10 mg tablet 10 mg PO DAILY 01/21/21 02/04/23 02/09/23 History albuterol sulfate 2.5 mg/3 mL 2 mg inhalation TID 05/04/22 02/09/23 02/09/23 History (0.083 %) solution for nebulization bupropion HCl 150 mg 24 hr tablet, 150 mg PO QAM 05/04/22 02/04/23 02/08/23 H istory extended release meclizine 25 mg tablet 25 mg PO TID PRN Dizziness 05/04/22 02/04/23 Unknown History omeprazole 20 mg capsule,delayed 20 mg PO DAILY abdominal pain 05/04/22 02/04/23 02/09/23 History release nicotine (polacrilex) 4 mg buccal 4 mg buccal Q8H PRN Smoking 09/01/22 02/04/23 Unknown History lozenge Cessation aspirin 81 mg chewable tablet 1 tab PO DAILY 01/26/23 02/04/23 01/26/23 History atorvastatin 40 mg tablet 1 tab PO DAILY 01/26/23 02/04/23 02/08/23 History cetirizine 10 mg tablet 1 tab PO QAM 01/26/23 02/04/23 02/08/23 History chlorthalidone 25 mg tablet 1 tab PO DAILY 01/26/23 02/04/23 02/08/23 History nortriptyline 10 mg capsule 1 cap PO BEDTIME 01/26/23 02/04/23 02/08/23 History methadone 5 mg tablet 61 mg PO DAILY 02/08/23 02/09/23 02/09/23 History Physical Exam Vital Signs and Narrative: Vital Signs: Last Vital Signs Temp 97.9 F 02/09/23 17:09 Pulse 71 02/09/23 17:09 Resp 16 02/09/23 17:09 BP 165/75 H 02/09/23 17:09 Pulse Ox 100 02/09/23 17:09 O2 Del Method 02/09/23 17:09 O2 Flow Rate 3 02/09/23 17:09 BMI result Body Mass Index 33.5 Constitutional - Awake and Alert, No apparent distress Eyes - PERRLA, EOMI Cardiovascular - S1S2, RRR, No edema Respiratory - Normal lung expansion, Normal respiratory effort, No respiratory distress, CTA bilaterally Gastrointestinal - NT / ND; +BS; No rebound or guarding Extremities - no calf tenderness bilaterally, no swelling Musculoskeletal - mild ecchymosis in the medial aspect the left thigh. Diffuse tenderness to palpation over the left knee without any focal calf tenderness or swelling. There is full extension and flexion of the left knee Skin - Warm/Dry Neurological - Alert & oriented x3. Sensation intact Psychological - Appropriate affect Results Labs 01/27/23 13:11 02/09/23 10:06 Labs: Laboratory Results - last 24 hr 02/09/23 02/09/23 09:58 10:06 Anion Gap 12 COVID-19 (EMILIANO) Negative COVID-19 Clin Com See Note Imaging Radiologist's Impressions: Impressions Pelvis X-Ray 02/09/23 15:20 IMPRESSION: Postsurgical changes. No hardware abnormality. Assessment and Plan (1) Primary osteoarthritis of left hip: Status: Acute Plan 57-year-old male with history of asthma/COPD, GERD, history of opioid abuse on chronic methadone therapy, hypertension, obstructive sleep apnea noncompliant with CPAP, and osteoarthritis of the left hip admitted to Orthopedic surgery s/p left THR POD 0 with consult placed to Medicine for medical management. # left hip osteoarthritis s/p left total hip arthroplasty -pod 0 -pain not well controlled. Pain will be difficult to control given chronic opioid dependence on methadone. Discussed with Orthopedic surgery PA. increase Dilaudid to 0.5 mg Q 3 H p.r.n. for severe pain -add 1000 mg Tylenol IV -continue Celebrex, OxyContin, oxycodone per Orthopedic surgery # opioid dependence -continue methadone # hypertension- uncontrolled, pain likely contributory -resume amlodipine a.m. resume chlorthalidone on discharge # CHILO -noncompliant with CPAP # asthma/COPD overlap-without acute exacerbation -continue home inhalers Will continue following to assist with pain management Time Spent With Patient Time: Total time managing care of this patient today ____ minutes.
[2023-02-09] MEDS: HYDROmorphone HCl 0.5 MG/0.5 ML SYRINGE IVPUSH ×2 (19:09→23:44)
[2023-02-09] MEDS: Docusate Sodium 100 MG CAPSULE PO (20:59)
[2023-02-09] MEDS: Celecoxib 200 MG CAPSULE PO (20:59)
[2023-02-09] MEDS: Nortriptyline HCl 10 MG CAPSULE PO (21:00)
[2023-02-09] MEDS: Loratadine 10 MG TABLET PO (21:00)
[2023-02-09] MEDS: buPROPion HCl XL 150 MG TAB.ER.24H PO (21:00)
[2023-02-10] VITALS (7 sets, daily range): BP systolic 131–154; BP diastolic 64–70; PULSE 58–82; RESP 18–20; TEMP 36.8–37; O2SAT 93–100
[2023-02-10] MEDS: Lactated Ringers 1,000 ML 100 ML IVCONT (05:23)
--- NOTE | 2023-02-10 06:56 | HE.PHANOTE ---
METHADONE VERIFICATION LAST DOSE 61 MG FROM [facility]
[2023-02-10 07:12] LABS: MANUAL DIFF FLAG NO
[2023-02-10 07:15] LABS: Basophils Percent Auto 0.5 % (0-2); Eosinophils Absolute Auto 0.2 X10*3/uL (0.0-0.4); Eosinophils Percent Auto 2.8 % (0-4); Hematocrit 35.3 % (42.0-52.0); Hemoglobin 11.3 g/dl (14.0-18.0); Imm Gran Abs Auto 0.02 X10*3/uL (0.00-0.03); Imm Gran Pct Auto 0.2 % (0.0-0.4); Lymphocytes Absolute Auto 2.3 X10*3/uL (1.2-4.9); Lymphocytes Percent Auto 26.7 % (20-40); Mean Corpuscular Volume 90.7 fL (80.0-98.0); Mean Platelet Volume 10.7 fL (9.4-12.4); Monocytes Absolute Auto 1.1 X10*3/uL (0.1-1.2); Monocytes Percent Auto 12.4 % (2-11); Neutrophils Absolute Auto 4.9 x10*3/uL (2.0-8.3); Neutrophils Percent Auto 57.4 % (45-73); Platelet Count 251 X10*3/uL (160-400); Red Blood Count 3.89 X10*6/uL (4.60-5.80); Red Cell Distribution Width 15.1 % (11.0-16.0); White Blood Count 8.6 X10*3/uL (4.8-10.8)
[2023-02-10 07:30] LABS: Anion Gap 11 (12-20); Blood Urea Nitrogen 12 mg/dL (9-16); Carbon Dioxide 29 mmol/L (22-29); Chloride 106 mmol/L (96-108); Creatinine Clr Calc Pharmacy 127.9; Estimated Glomerular Filt Rate > 60; Glucose Fasting 90 mg/dL (60-99); Potassium 4.6 mmol/L (3.3-5.1); Sodium 141 mmol/L (135-145)
--- NOTE | 2023-02-10 07:34 | PM.PNORT ---
Subjective Subjective Date of Service: 02/10/23 Interval history: POD1 s/p LTHA. Patient is resting in bed. Pain overnight. No additional overnight events. No additional compaints. Physical Exam Vital Signs: Vital Signs: Last Vital Signs Temp 98.3 F 02/10/23 03:34 Pulse 58 02/10/23 03:34 Resp 18 02/10/23 03:34 BP 131/67 02/10/23 03:34 Pulse Ox 100 02/10/23 03:34 O2 Del Method 02/10/23 03:34 O2 Flow Rate 3 02/09/23 23:35 BMI result Body Mass Index 33.5 Const: General: cooperative, healthy appearing and no acute distress Resp: Effort & Inspection: normal respiratory effort and able to speak in complete sentences Cardio: Rate: regular rate Peripheral pulses: Peripheral pulses 2+ throughout GI: Palpation (GI): Soft to palpation Skin: Lesions: no lesions Rashes: no rashes Extrem: Other: Left hip Aquacel is c/d/i. Able to dorsiflex and plantarflex. NVI. Procedures Date of Service Date of Service: 02/10/23 Progress Note: A&P Assessment and plan (1) S/P total left hip arthroplasty: Status: Acute Plan Continue pain mgmnt Begin ASA for dvt ppx begin PT for LTHA Dispo planning-Pending PT eval, pain mgmnt Time Spent With Patient Time: Total time managing care of this patient today ____ minutes. Quality Stroke Does the patient have a stroke diagnosis?: No VTE Prior VTE?: No VTE Risk Level:: Medical - moderate - high VTE Device Contraindication: N/A - Device Ordered VTE Drug Contraindication: N/A - Med Ordered
[2023-02-10] MEDS: Albuterol Sulfate (0.083%) 2.5 MG/3 ML VIAL.NEB 2 MG INHALE (08:02)
[2023-02-10] MEDS: HYDROmorphone HCl 0.5 MG/0.5 ML SYRINGE IVPUSH ×3 (08:19→22:04)
[2023-02-10] MEDS: Omeprazole 20 MG CAPSULE.DR PO (08:22)
[2023-02-10] MEDS: methADONE HCl 20 MG/2 ML ORAL.CONC 60 MG PO (08:22)
[2023-02-10] MEDS: amLODIPine Besylate 10 MG TABLET PO (08:22)
[2023-02-10] MEDS: buPROPion HCl XL 150 MG TAB.ER.24H PO (08:22)
[2023-02-10] MEDS: 0.9 % Sodium Chloride Flush 3 ML SYRINGE IVFLUSH ×2 (08:23→15:19)
[2023-02-10] MEDS: oxyCODONE HCl ER 10 MG TAB.ER.12H PO ×2 (08:23→20:04)
[2023-02-10] MEDS: Docusate Sodium 100 MG CAPSULE PO ×2 (08:23→20:05)
[2023-02-10] MEDS: Loratadine 10 MG TABLET PO (08:23)
[2023-02-10] MEDS: Celecoxib 200 MG CAPSULE PO ×2 (08:23→20:05)
--- NOTE | 2023-02-10 09:17 | MHC.CM.PN ---
pt lives with is not covid vax has own transport home disposition pending [facility]
--- NOTE | 2023-02-10 09:28 | MHC.CM.PN ---
Addendum entered by Cate Lugo 02/10/23 10:22: pt is active with [facility] for pt and home delivered methadone Original Note: pt lives with his 2 dgters is not covid vax has own ride home disposition pending pt dulce
--- NOTE | 2023-02-10 10:51 | P.PNIM_ITS ---
Subjective Subjective Date of Service: 02/10/23 Interval History: f/u on HTN, chronic opioid use, post knee surgery Physical Exam Vital Signs: Vital Signs: Last Vital Signs Temp 98.6 F 02/10/23 07:52 Pulse 71 02/10/23 08:04 Resp 18 02/10/23 08:04 BP 154/70 H 02/10/23 07:52 Pulse Ox 96 02/10/23 07:52 O2 Del Method 02/10/23 07:52 O2 Flow Rate 2.0 02/10/23 07:52 BMI result Body Mass Index 33.5 Const: Other: General: AO X 3, no acute distress Resp: CTA bilateral CVS: S1,S2,RRR GI: +BS, NT, no distention skin wound intact Neuro: motor grossly intact Psych: appropriate affect Objective Data Active Medications Acetaminophen (Acetaminophen 325 Mg Tablet) 650 mg PO Q6H PRN PRN Reason: Pain, Mild (Pain Scale 1-3) Albuterol Sulfate (Albuterol Sulfate 90 Mcg 8 Gm Inhaler) 1 puff INHALE RQID PRN PRN Reason: Wheezing Albuterol Sulfate (Albuterol Sulfate (0.083%) 2.5 Mg/3 Ml Vial.Neb) 2 mg INHALE RTID [facility] Last Admin: 02/10/23 08:02 Dose: 2 mg Documented By: MARIEL Amlodipine Besylate (Amlodipine Besylate 10 Mg Tablet) 10 mg PO DAILY [facility]; Protocol Last Admin: 02/10/23 08:22 Dose: 10 mg Documented By: TONY Bupropion HCl (Bupropion Hcl Xl 150 Mg Tab.Er.24h) 150 mg PO DAILY [facility] Last Admin: 02/10/23 08:22 Dose: 150 mg Documented By: TONY Celecoxib (Celecoxib 200 Mg Capsule) 200 mg PO BID [facility] Last Admin: 02/10/23 08:23 Dose: 200 mg Documented By: TONY Docusate Sodium (Docusate Sodium 100 Mg Capsule) 100 mg PO BID [facility] Last Admin: 02/10/23 08:23 Dose: 100 mg Documented By: TONY Enoxaparin Sodium (Enoxaparin Sodium 40 Mg/0.4 Ml Syringe) 40 mg SUBCUT Q24H [facility] Hydromorphone HCl (Hydromorphone Hcl 0.5 Mg/0.5 Ml Syringe) 0.5 mg IVPUSH Q3H PRN; Protocol PRN Reason: Pain, Severe (Pain Scale 7-10) Last Admin: 02/10/23 08:19 Dose: 0.5 mg Documented By: TONY Loratadine (Loratadine 10 Mg Tablet) 10 mg PO DAILY [facility] Last Admin: 02/10/23 08:23 Dose: 10 mg Documented By: TONY Meclizine HCl (Meclizine Hcl 25 Mg Tablet) 25 mg PO TID PRN PRN Reason: Dizziness Methadone HCl (Methadone Hcl 20 Mg/2 Ml Oral.Conc) 60 mg PO DAILY [facility] Last Admin: 02/10/23 08:22 Dose: 60 mg Documented By: TONY Nicotine Polacrilex (Nicotine Polacrilex Lozenge 4 Mg Lozenge) 4 mg BUCCAL Q8H PRN PRN Reason: Smoking Cessation Non-Formulary Medication (Umeclidinium-Vilanterol [Anoro Ellipta]) 1 inhalation INHALE DAILY [facility] Nortriptyline HCl (Nortriptyline Hcl 10 Mg Capsule) 10 mg PO BEDTIME [facility] Last Admin: 02/09/23 21:00 Dose: 10 mg Documented By: GEORGES Omeprazole (Omeprazole 20 Mg Capsule.Dr) 20 mg PO DAILY@0630 [facility] Last Admin: 02/10/23 08:22 Dose: 20 mg Documented By: TONY Oxycodone HCl (Oxycodone Hcl Immed Release 5 Mg Tablet) 10 mg PO Q4H PRN PRN Reason: Pain, Moderate (Pain Scale 4-6 Oxycodone HCl (Oxycodone Hcl Er 10 Mg Tab.Er.12h) 10 mg PO BID [facility] Last Admin: 02/10/23 08:23 Dose: 10 mg Documented By: TONY Sodium Chloride (0.9 % Sodium Chloride Flush 3 Ml Syringe) 3 ml IVFLUSH QSHIFT [facility] Last Admin: 02/10/23 08:23 Dose: 3 ml Documented By: TONY Labs 02/10/23 05:32 02/10/23 05:32 Labs: Laboratory Results - last 24 hr 02/10/23 02/10/23 05:32 05:32 MCV 90.7 MCH 29.0 MCHC 32.0 RDW 15.1 Plt Count 251 MPV 10.7 Immature Gran % (Auto) 0.2 Neut % (Auto) 57.4 Lymph % (Auto) 26.7 [place] % (Auto) 12.4 H Eos % (Auto) 2.8 Baso % (Auto) 0.5 Lymph # (Auto) 2.3 [place] # (Auto) 1.1 Eos # (Auto) 0.2 Baso # (Auto) 0.0 Abs Immat Gran (auto) 0.02 Absolute Neuts (auto) 4.9 Absolute Nucleated RBC 0.000 Nucleated RBC % (auto) 0.0 Anion Gap 11 L Estim Creat Clear Calc 127.9 Estimated GFR > 60 Fasting Glucose 90 Calcium 8.0 L D Assessment and Plan (1) S/P total left hip arthroplasty: Status: Acute (2) Methadone use: Status: Acute Plan 57-year-old male with history of asthma/COPD, GERD, history of opioid abuse on chronic methadone therapy, hypertension, obstructive sleep apnea noncompliant with CPAP, and osteoarthritis of the left hip admitted to Orthopedic surgery s/p left THR POD 0 with consult placed to Medicine for medical management. # left hip osteoarthritis s/p left total hip arthroplasty on 02/09/23 -Pain not well controlled, advise incremental increase in dilaudid and oxycodone, oxycontin as ordered - Tylenol IV # opioid dependence -continue methadone # hypertension--continue amlodipine and chlorthalidone # CHILO -noncompliant with CPAP # asthma/COPD overlap-without acute exacerbation -continue home inhalers Time Spent With Patient Time: Total time managing care of this patient today ____ minutes. Quality Stroke Does the patient have a stroke diagnosis?: No VTE Prior VTE?: No VTE Risk Level:: Medical - moderate - high VTE Device Contraindication: N/A - Device Ordered VTE Drug Contraindication: N/A - Med Ordered
[2023-02-10] MEDS: oxyCODONE HCl Immed Release 5 MG TABLET 10 MG PO ×3 (11:01→20:03)
[2023-02-10] MEDS: Nicotine Polacrilex Lozenge 4 MG LOZENGE BUCCAL (11:01)
[2023-02-10] MEDS: Acetaminophen 325 MG TABLET 650 MG PO (11:01)
--- NOTE | 2023-02-10 11:35 | HO.POSTANES ---
Post Anesthesia Evaluation Post Anesthesia Evaluation Vital Signs: Vital Signs Temp Pulse Resp BP Pulse Ox O2 Del Method O2 Flow Rate 02/10/23 08:04 71 18 02/10/23 07:52 98.6 F 68 18 154/70 H 96 Nasal Cannula 2.0 02/10/23 03:34 98.3 F 58 18 131/67 100 Room Air Anesthesia: General Mental Status: Awake Pain Control: Satisfactory Nausea/Vomiting: None Hydration: Adequate Anesthesia-Related Issues: No Anes. Related Issues
[2023-02-10] MEDS: Albuterol Sulfate (0.083%) 2.5 MG/3 ML VIAL.NEB INHALE ×2 (14:19→20:38)
[2023-02-10] MEDS: Enoxaparin Sodium 40 MG/0.4 ML SYRINGE SUBCUT (15:06)
[2023-02-10] MEDS: Nortriptyline HCl 10 MG CAPSULE PO (20:05)
[2023-02-11] MEDS: 0.9 % Sodium Chloride Flush 3 ML SYRINGE IVFLUSH ×2 (00:27→09:37)
[2023-02-11] MEDS: oxyCODONE HCl Immed Release 5 MG TABLET 10 MG PO ×3 (00:35→12:50)
[2023-02-11 03:56] VITALS: BP 124/61; PULSE 63; RESP 18; TEMP 36.3; O2SAT 95
[2023-02-11] MEDS: HYDROmorphone HCl 0.5 MG/0.5 ML SYRINGE IVPUSH (04:09)
[2023-02-11] MEDS: Omeprazole 20 MG CAPSULE.DR PO (05:52)
[2023-02-11 07:06] LABS: MANUAL DIFF FLAG NO
[2023-02-11 07:13] LABS: Basophils Percent Auto 0.3 % (0-2); Eosinophils Absolute Auto 0.1 X10*3/uL (0.0-0.4); Eosinophils Percent Auto 0.8 % (0-4); Hemoglobin 10.7 g/dl (14.0-18.0); Imm Gran Abs Auto 0.03 X10*3/uL (0.00-0.03); Imm Gran Pct Auto 0.3 % (0.0-0.4); Lymphocytes Absolute Auto 2.1 X10*3/uL (1.2-4.9); Lymphocytes Percent Auto 20.3 % (20-40); Mean Corpuscular HGB Conc 32.4 g/dl (31.0-36.0); Mean Corpuscular Hemoglobin 28.7 pg (27.0-33.0); Mean Corpuscular Volume 88.5 fL (80.0-98.0); Mean Platelet Volume 10.4 fL (9.4-12.4); Monocytes Absolute Auto 1.3 X10*3/uL (0.1-1.2); Monocytes Percent Auto 12.9 % (2-11); Neutrophils Absolute Auto 6.6 x10*3/uL (2.0-8.3); Neutrophils Percent Auto 65.4 % (45-73); Platelet Count 238 X10*3/uL (160-400); Red Blood Count 3.73 X10*6/uL (4.60-5.80); Red Cell Distribution Width 14.9 % (11.0-16.0); White Blood Count 10.1 X10*3/uL (4.8-10.8)
[2023-02-11 07:28] LABS: Anion Gap 10 (12-20); Blood Urea Nitrogen 10 mg/dL (9-16); Calcium 7.9 mg/dL (8.4-10.2); Carbon Dioxide 28 mmol/L (22-29); Chloride 105 mmol/L (96-108); Creatinine Clr Calc Pharmacy 134.7; Estimated Glomerular Filt Rate > 60; Glucose Fasting 102 mg/dL (60-99); Sodium 139 mmol/L (135-145)
[2023-02-11 07:35] VITALS: BP 158/81; PULSE 80; RESP 20; TEMP 36.8; O2SAT 97
[2023-02-11] MEDS: Albuterol Sulfate (0.083%) 2.5 MG/3 ML VIAL.NEB INHALE (07:50)
[2023-02-11 07:51] VITALS: PULSE 81; RESP 20; O2SAT 94
[2023-02-11] MEDS: Loratadine 10 MG TABLET PO (08:22)
[2023-02-11] MEDS: buPROPion HCl XL 150 MG TAB.ER.24H PO (08:22)
[2023-02-11] MEDS: amLODIPine Besylate 10 MG TABLET PO (08:22)
[2023-02-11] MEDS: Celecoxib 200 MG CAPSULE PO (08:22)
[2023-02-11] MEDS: oxyCODONE HCl ER 10 MG TAB.ER.12H PO (08:23)
[2023-02-11] MEDS: methADONE HCl 20 MG/2 ML ORAL.CONC 60 MG PO (08:23)
--- NOTE | 2023-02-11 09:28 | PM.PNORT ---
Subjective Subjective Date of Service: 02/12/23 Interval history: POD 2 s/p Lt AARON no overnight events resting in chair, worked with PT-did stairs c/o left knee pain Physical Exam Vital Signs: Vital Signs: Last Vital Signs Temp 98.3 F 02/11/23 07:35 Pulse 81 02/11/23 07:51 Resp 20 02/11/23 07:51 BP 158/81 H 02/11/23 07:35 Pulse Ox 97 02/11/23 07:35 O2 Del Method 02/11/23 07:35 O2 Flow Rate 2.0 02/10/23 07:52 BMI result Body Mass Index 33.5 Const: General: cooperative, healthy appearing and no acute distress Resp: Effort & Inspection: normal respiratory effort and able to speak in complete sentences Cardio: Rate: regular rate Peripheral pulses: Peripheral pulses 2+ throughout GI: Palpation (GI): Soft to palpation Skin: General skin exam: no rashes or lesions noted Extrem: Other: incision clean dry and intact. Nataly intact. No erythema or effusion. Calf supple nontender. Neurovascularly intact. Procedures Date of Service Date of Service: 02/11/23 Joint Aspiration/Injection Joint Asp./Inject. 1: Side of body: left Joint Aspirated/Injected: knee Skin prep: Povidone-Iodine1% Local anesthesia used: lidocaine 1% Amount of anesthesia used (ml): 40 Needle size used: 22G Medication injected, if any: Methylprednisolone Amount of medication injected (ml): 80 Patient tolerated procedure: well and no complications Progress Note: A&P Assessment and plan (1) S/P total left hip arthroplasty: Status: Acute (2) Osteoarthritis of left knee: Status: Acute Assessment and Plan: injection to the left knee tolerated well. Plan Continue pain mgmnt ASA for dvt ppx PT /OT for LTHA Dispo planning-Pending PT eval, pain mgmnt Time Spent With Patient Time: Total time managing care of this patient today ____ minutes. Quality Stroke Does the patient have a stroke diagnosis?: No VTE Prior VTE?: No VTE Risk Level:: Medical - moderate - high VTE Device Contraindication: N/A - Device Ordered VTE Drug Contraindication: N/A - Med Ordered
[2023-02-11] MEDS: Lidocaine HCl 1 % 20 ML VIAL 40 ML SUBCUT (12:06)
--- NOTE | 2023-02-11 12:06 | HO.PM.IMPN ---
Subjective Subjective Date of Service: 02/11/23 Interval History: f/u on HTN, chronic opioid use, post knee surgery still has significant pain Physical Exam Vital Signs: Vital Signs: Last Vital Signs Temp 98.3 F 02/11/23 07:35 Pulse 81 02/11/23 07:51 Resp 20 02/11/23 07:51 BP 158/81 H 02/11/23 07:35 Pulse Ox 97 02/11/23 07:35 O2 Del Method 02/11/23 07:35 O2 Flow Rate 2.0 02/10/23 07:52 BMI result Body Mass Index 33.5 Const: Other: General: AO X 3, no acute distress Resp: CTA bilateral CVS: S1,S2,RRR GI: +BS, NT, no distention skin wound intact Neuro: motor grossly intact Psych: appropriate affect Objective Data Active Medications Acetaminophen (Acetaminophen 325 Mg Tablet) 650 mg PO Q6H PRN PRN Reason: Pain, Mild (Pain Scale 1-3) Last Admin: 02/10/23 11:01 Dose: 650 mg Documented By: ENRIQUE Albuterol Sulfate (Albuterol Sulfate 90 Mcg 8 Gm Inhaler) 1 puff INHALE RQID PRN PRN Reason: Wheezing Albuterol Sulfate (Albuterol Sulfate (0.083%) 2.5 Mg/3 Ml Vial.Neb) 2.5 mg INHALE RTID [facility] Last Admin: 02/11/23 07:50 Dose: 2.5 mg Documented By: AURELIO Amlodipine Besylate (Amlodipine Besylate 10 Mg Tablet) 10 mg PO DAILY [facility]; Protocol Last Admin: 02/11/23 08:22 Dose: 10 mg Documented By: ETHAN Bupropion HCl (Bupropion Hcl Xl 150 Mg Tab.Er.24h) 150 mg PO DAILY [facility] Last Admin: 02/11/23 08:22 Dose: 150 mg Documented By: ETHAN Celecoxib (Celecoxib 200 Mg Capsule) 200 mg PO BID [facility] Last Admin: 02/11/23 08:22 Dose: 200 mg Documented By: ETHAN Docusate Sodium (Docusate Sodium 100 Mg Capsule) 100 mg PO BID [facility] Last Admin: 02/11/23 09:39 Dose: Not Given Documented By: ETHAN Non-Admin Reason: Patient Refused Enoxaparin Sodium (Enoxaparin Sodium 40 Mg/0.4 Ml Syringe) 40 mg SUBCUT Q24H [facility] Last Admin: 02/10/23 15:06 Dose: 40 mg Documented By: TONY Hydromorphone HCl (Hydromorphone Hcl 0.5 Mg/0.5 Ml Syringe) 0.5 mg IVPUSH Q3H PRN; Protocol PRN Reason: Pain, Severe (Pain Scale 7-10) Last Admin: 02/11/23 04:09 Dose: 0.5 mg Documented By: MONTY Loratadine (Loratadine 10 Mg Tablet) 10 mg PO DAILY [facility] Last Admin: 02/11/23 08:22 Dose: 10 mg Documented By: ETHAN Meclizine HCl (Meclizine Hcl 25 Mg Tablet) 25 mg PO TID PRN PRN Reason: Dizziness Methadone HCl (Methadone Hcl 20 Mg/2 Ml Oral.Conc) 60 mg PO DAILY [facility] Last Admin: 02/11/23 08:23 Dose: 60 mg Documented By: ETHAN Nicotine Polacrilex (Nicotine Polacrilex Lozenge 4 Mg Lozenge) 4 mg BUCCAL Q8H PRN PRN Reason: Smoking Cessation Last Admin: 02/10/23 11:01 Dose: 4 mg Documented By: ENRIQUE Non-Formulary Medication (Umeclidinium-Vilanterol [Anoro Ellipta]) 1 inhalation INHALE DAILY [facility] Nortriptyline HCl (Nortriptyline Hcl 10 Mg Capsule) 10 mg PO BEDTIME [facility] Last Admin: 02/10/23 20:05 Dose: 10 mg Documented By: ANNA Omeprazole (Omeprazole 20 Mg Capsule.Dr) 20 mg PO DAILY@0630 [facility] Last Admin: 02/11/23 05:52 Dose: 20 mg Documented By: MONTY Oxycodone HCl (Oxycodone Hcl Immed Release 5 Mg Tablet) 10 mg PO Q4H PRN PRN Reason: Pain, Moderate (Pain Scale 4-6 Last Admin: 02/11/23 07:30 Dose: 10 mg Documented By: ETHAN Oxycodone HCl (Oxycodone Hcl Er 10 Mg Tab.Er.12h) 10 mg PO BID [facility] Last Admin: 02/11/23 08:23 Dose: 10 mg Documented By: ETHAN Sodium Chloride (0.9 % Sodium Chloride Flush 3 Ml Syringe) 3 ml IVFLUSH QSHIFT TRUE Last Admin: 02/11/23 09:37 Dose: 3 ml Documented By: ETHAN Labs 02/11/23 05:25 02/11/23 05:25 Labs: Laboratory Results - last 24 hr 02/11/23 02/11/23 05:25 05:25 MCV 88.5 MCH 28.7 MCHC 32.4 RDW 14.9 Plt Count 238 MPV 10.4 Immature Gran % (Auto) 0.3 Neut % (Auto) 65.4 Lymph % (Auto) 20.3 [place] % (Auto) 12.9 H Eos % (Auto) 0.8 Baso % (Auto) 0.3 Lymph # (Auto) 2.1 [place] # (Auto) 1.3 H Eos # (Auto) 0.1 Baso # (Auto) 0.0 Abs Immat Gran (auto) 0.03 Absolute Neuts (auto) 6.6 Absolute Nucleated RBC 0.000 Nucleated RBC % (auto) 0.0 Anion Gap 10 L Estim Creat Clear Calc 134.7 Estimated GFR > 60 Fasting Glucose 102 H Calcium 7.9 L Assessment and Plan (1) S/P total left hip arthroplasty: Status: Acute (2) Methadone use: Status: Acute Plan 57-year-old male with history of asthma/COPD, GERD, history of opioid abuse on chronic methadone therapy, hypertension, obstructive sleep apnea noncompliant with CPAP, and osteoarthritis of the left hip admitted to Orthopedic surgery s/p left THR POD 0 with consult placed to Medicine for medical management. # left hip osteoarthritis s/p left total hip arthroplasty on 02/09/23 continue pain management,, advise incremental increase in dilaudid and oxycodone as needed, oxycontin as ordered # opioid dependence -continue methadone # hypertension--continue amlodipine and chlorthalidone # CHILO -noncompliant with CPAP # asthma/COPD overlap-without acute exacerbation -continue home inhalers dispo per ortho Time Spent With Patient Time: Total time managing care of this patient today ____ minutes. Quality Stroke Does the patient have a stroke diagnosis?: No VTE Prior VTE?: No VTE Risk Level:: Medical - moderate - high VTE Device Contraindication: N/A - Device Ordered VTE Drug Contraindication: N/A - Med Ordered
[2023-02-11] MEDS: methylPREDNISolone acetate 80 MG VIAL INTRAARTIC (12:07)
--- NOTE | 2023-02-11 12:43 | MHC.CM.PN ---
Patient is discharged to home with [facility]. Patient has arranged for transportation home.
--- NOTE | 2023-02-11 13:59 | PM.DS ---
DS: Providers Provider Date of Service: 02/12/23 Date of admission: 02/09/23 09:48 Primary care physician: Fabiola Perdue MD Consults: 02/09/23 17:18 Consult to Hospitalist Routine Consulting Provider: Hospitalist Reason For Exam: medical managment DS: Diagnosis Discharge Diagnosis (1) S/P total left hip arthroplasty: Status: Acute (2) Methadone use: Status: Inactive DS: Summary Hospital Course Hospital Course: The patient underwent a successful left total hip arthroplasty on 02/09/23, was transferred to PACU and then to the floor to recover. During their stay, their vitals were stable, afebrile at 98.3. Labs were unremarkable, H/H 10.7/33.0. POD 1 he was started on Aspirin for DVT ppx, they also received Physical Therapy and occupational services twice a day. Physical therapy should include gait training, ROM to tolerance and strength. He is WBAT. While in the hospital, he developed left knee pain due to his left knee oa. Left knee was injected with 80mg depomedrol and 40cc 1% lidocaine which he tolerated well. Prior to discharge, his dressing was changed, incision clean dry and intact, new Aquacel dressing applied. The Aquacel dressing shoulder remain intact and dry at all times. Any concerns with the dressing, please contact orthopedic office. No showering. The plan is to be discharged home with VNA services. Time Spent with Patient Time attestation: Total time managing care of this patient today ____ minutes. Discharge coordination time: Less than 30 minutes Quality: Safe Use of Opioids Does Pt have an Active Cancer Diagnosis on the Problem List?: No Quality: Stroke Does the patient have a stroke diagnosis?: No Physical Exam Vital Signs: Vital Signs: Last Vital Signs Temp 98.3 F 02/11/23 07:35 Pulse 81 02/11/23 07:51 Resp 20 02/11/23 07:51 BP 158/81 H 02/11/23 07:35 Pulse Ox 97 02/11/23 07:35 O2 Del Method 02/11/23 07:35 O2 Flow Rate 2.0 02/10/23 07:52 BMI result Body Mass Index 33.5 Const: General: cooperative, healthy appearing and no acute distress Resp: Effort & Inspection: normal respiratory effort and able to speak in complete sentences Cardio: Rate: regular rate Peripheral pulses: Peripheral pulses 2+ throughout GI: Palpation (GI): Soft to palpation Skin: General skin exam: no rashes or lesions noted Extrem: Other: incision clean dry and intact. Nataly intact. No erythema or effusion. Calf supple nontender. Neurovascularly intact. DS: Data Data Completed and Pending Pending studies at discharge: Pending at discharge 02/09/23 14:15 Surgical [PTH] Routine Labs on day of discharge: Laboratory Results - last 24 hr 02/11/23 02/11/23 05:25 05:25 WBC 10.1 RBC 3.73 L Hgb 10.7 L Hct 33.0 L MCV 88.5 MCH 28.7 MCHC 32.4 RDW 14.9 Plt Count 238 MPV 10.4 Immature Gran % (Auto) 0.3 Neut % (Auto) 65.4 Lymph % (Auto) 20.3 [place] % (Auto) 12.9 H Eos % (Auto) 0.8 Baso % (Auto) 0.3 Lymph # (Auto) 2.1 [place] # (Auto) 1.3 H Eos # (Auto) 0.1 Baso # (Auto) 0.0 Abs Immat Gran (auto) 0.03 Absolute Neuts (auto) 6.6 Absolute Nucleated RBC 0.000 Nucleated RBC % (auto) 0.0 Sodium 139 Potassium 4.0 Chloride 105 Carbon Dioxide 28 Anion Gap 10 L BUN 10 Creatinine 0.75 Estim Creat Clear Calc 134.7 Estimated GFR > 60 Fasting Glucose 102 H Calcium 7.9 L Discharge Plan Discharge Anticipated Discharge Date/Time: 02/11/23 12:00 Patient Disposition: Home Health Service Discharge Diagnosis: s/p LT Referrals: [facility] care [Other] - 1 Week Ivette Bonilla PA-C [Physician Bench Scientist] - 02/18/23 11:30 am Discharge Medications: New docusate sodium 100 mg Capsule 100 mg PO BID 14 Days Qty: 28 0RF oxycodone 10 mg tablet 10 mg PO Q4H PRN (Reason: Pain, Moderate (Pain Scale 4-6) 7 Days Qty: 42 0RF Rx Instructions: Partial Fill upon patient request. celecoxib 200 mg Capsule 200 mg PO BID 14 Days Qty: 28 0RF acetaminophen 325 mg Tablet 650 mg PO Q6H PRN (Reason: Pain, Mild (Pain Scale 1-3)) 30 Days Qty: 240 0RF aspirin 325 mg tablet 325 mg PO BID 42 Days Qty: 84 0RF Continued Anoro Ellipta 62.5-25 mcg/actuation blister with device 1 inh inhalation DAILY 30 Days Qty: 1 6RF methadone 5 mg tablet 61 mg PO DAILY atorvastatin 40 mg tablet 1 tab PO DAILY cetirizine 10 mg tablet 1 tab PO QAM chlorthalidone 25 mg tablet 1 tab PO DAILY nortriptyline 10 mg capsule 1 cap PO BEDTIME albuterol sulfate [ProAir HFA] 90 mcg/actuation HFA aerosol inhaler 1 inh inhalation QID PRN (Reason: Wheezing) amlodipine 10 mg tablet 10 mg PO DAILY bupropion HCl 150 mg tablet extended release 24 hr 150 mg PO QAM omeprazole 20 mg capsule,delayed release(DR/EC) 20 mg PO DAILY albuterol sulfate 2.5 mg /3 mL (0.083 %) solution for nebulization 2 mg inhalation TID meclizine 25 mg tablet 25 mg PO TID PRN (Reason: Dizziness) nicotine (polacrilex) 4 mg lozenge 4 mg buccal Q8H PRN (Reason: Smoking Cessation) (DME) walk[facility] See [facility] Inst[facility] .MEDSUPPLY Qty: 1 0RF Rx Instructions: Folding Front wheeled walker Discontinued aspirin 81 mg tablet,chewable 1 tab PO DAILY Discharge Orders: Discharge Order (Routine); Ordered 02/11/23 Ordered By: Ivette Bonilla Diet: Advance to usual diet Activity on Discharge: Use cane or walker Stand Alone Forms: Patient Portal Discharge page Care Plan Goals: Restore fxn left hip Health Concerns: None Plan of Treatment: Physical Therapy for total hip arthroplasty: posterior precautions, gait training, ROM, strength Limit stair climbing No showering, no tub bath-keep dressing clean, dry and intact No driving x6 weeks Continue Aspirin tabs once a day x 6 weeks Follow up with [facility] Orthopedics in 2 weeks Assessment: Stable for D/C Discharge Date/Time: 02/11/23 13:09
--- NOTE | 2023-02-11 14:00 | W.MHC.F2F ---
Service Date Service Date: 02/11/23 Encounter Date of encounter: 02/11/23 Reasons for Services Signs and symptoms assessed: Left hip pain, weakness, diff with ambulation Reason for physical therapy: home safety and mobility, therapeutic exercises, restore joint function, gait/transfer training, ADL training and energy conservation Reason for occupational therapy: home safety and mobility, therapeutic exercises, restore joint function, gait/transfer training, ADL training and energy conservation Overseeing Care: Aureliano Jama Homebound: Leaving the home is medically contraindicated at this time without the asist of a device and/or another person due th the listed conditions above and below. Reason homebound: unsteady gait / fall risk, pain with ambulation, poor balance / fall risk and unable to drive Certification: Based on the above findings, I certify that this patient is confined to the home and needs intermittent usp care, physical therapy and/or speech therapy, or continues to need occupational therapy. The patient is under my care, and I have initiated the establishment of the plan of care. The patient will be followed by a physician who will periodically review the plan of care. Time Spent With Patient Time: Total time managing care of this patient today ____ minutes.
== END 2023-02-11 13:09 | disposition home health service (06) | DRG 324 ==
LOC: HO.SSSA 13:35 → HO.S3 15:28
PROVIDERS: Nurse Practitioner; Physician Assistant; Admitting Provider Orthopaedic Surgery; PCP General Practice; Visit Provider Orthopaedic Surgery
PROC: 0SRB03A Replacement of Left Hip Joint with Ceramic Synthetic Substitute, Uncemented, Open Approach (ICD-10-PCS; CPT 27130; principal; 2023-02-09 12:00)
DX: M16.12 Unilateral primary osteoarthritis, left hip (principal); F11.20 Opioid dependence, uncomplicated; G47.33 Obstructive sleep apnea (adult) (pediatric); J44.9 Chronic obstructive pulmonary disease, unspecified; I10 Essential (primary) hypertension; Z20.822 Contact with and (suspected) exposure to COVID-19; F17.210 Nicotine dependence, cigarettes, uncomplicated; Z71.6 Tobacco abuse counseling; Z91.199 Patient's noncompliance with other medical treatment and regimen due to unspecified reason; Z79.899 Other long term (current) drug therapy
CPT/HCPCS: 36415; 72170; 80048; 80051; 85025; 85027; 86850; 86900; 86901; 87635; 87640; 87641; 88304; 88311; 93005; 94640; 97110; 97116; 97162; 97166; 97535; C1776; J0131; J0690; J1040; J1170; J1650; J2250; J2405; J2550; J2795; J3010

== ENCOUNTER → 2023-02-16 13:09 | Outpatient (BNVA) | payer MEDICAID, SELFPAY | PROVIDERS: PCP General Practice; Visit Provider Orthopaedic Surgery ==

== ENCOUNTER → 2023-02-25 13:36 | Outpatient (BNVA) | payer MEDICAID, SELFPAY | PROVIDERS: PCP General Practice; Visit Provider Physician Assistant ==

== ENCOUNTER 2023-03-11 12:04 | Outpatient (REF) | payer MEDICAID, SELFPAY ==
--- NOTE | ~2023-03-11 | XR_ITS ---
EXAMINATION: Pelvis and left hip x-ray CLINICAL INFORMATION: Pain COMPARISON: Previous x-ray January 2023 TECHNIQUE: One view of the pelvis and 2 views of the left hip FINDINGS: There is a left hip replacement in satisfactory position. No fracture or dislocation. Mild arthritis at the right hip joint. The pelvis are normal. Mild degenerative changes of the lower lumbar spine. Normal soft tissues. XR/XR hip LT 1V IMPRESSION: Satisfactory appearance of left hip replacement.
--- NOTE | ~2023-03-11 | XR_ITS ---
EXAMINATION: Pelvis and left hip x-ray CLINICAL INFORMATION: Pain COMPARISON: Previous x-ray January 2023 TECHNIQUE: One view of the pelvis and 2 views of the left hip FINDINGS: There is a left hip replacement in satisfactory position. No fracture or dislocation. Mild arthritis at the right hip joint. The pelvis are normal. Mild degenerative changes of the lower lumbar spine. Normal soft tissues. XR/XR pelvis 1-2V IMPRESSION: Satisfactory appearance of left hip replacement.
== END 2023-03-11 12:05 | disposition home or self-care (01) ==
LOC: HO.HOSX 12:04
PROVIDERS: Visit Provider Orthopaedic Surgery
DX: Z47.1 Aftercare following joint replacement surgery (principal); Z96.642 Presence of left artificial hip joint
CPT/HCPCS: 72170; 73501; 73502

== ENCOUNTER 2023-03-24 13:00 | Outpatient (RCR) | payer MEDICAID, SELFPAY ==
--- NOTE | 2023-02-25 15:08 | MHC.PT.EP ---
[facility] [place] Office [place] Office [place] Office [address] [phone] F: [phone] F: [phone] F: [phone] F: [phone] Physical Therapy Plan of Care Date of Evaluation: Date of Surgery: 02/09/23 Diagnosis: LEFT AARON Assessment: 57 YO MALE REF TO PT S/P LEFT AARON ON 02/09/23. HE RESIDES W HIS 2 CHILDREN IN A 2 LEVEL HOME AND IS CURRENTLY AMB W A QUAD CANE. OBJECTIVE FINDINGS: PO ROM DEFICITS LEFT HIP, TIGHT HIP FLEXORS/ CALF MM, (+) STRENGTH DEFICITS, AND MILD LEFT PROX LE PAIN. Pt IS AWARE OF POSTERIOR APPROACH RESTRICTIONS/ PRECAUTIONS. FUNCTIONALLY, Pt IS LIMITED WITH DECR STANDING CHARAN, ALTERED GAIT MECHANICS, STAIR MGMT, AND RESTRICTED WITH MORE PHYSICALLY DEMANDING ADLs. Pt WOULD BENEFIT FROM PT AT THIS TIME TO GUIDE HIM IN HIS POST-OP COURSE, DEV A PROGR HEP, ADDRESS PAIN MGMT, AND OBTAINING MAXIMAL LEVEL OF FUNCTIONAL INDEPENDENCE. Frequency and Duration: The patient will be seen 2 x WK x 10 WKS Short Term Goals: *Pt INDEP W AARON POSTERIOR APPROACH PRECAUTIONS AND SELF-MGMT OF POST-OP STATUS TO PROMOTE OPTIMAL HEALING *Pt WILL DEMON EFFICIENT GAIT MECHANICS W LEAST RESTRICTIVE ASST DEVICE ON LEVEL GROUND AND STAIRS *Pt'S LEFT HIP PAIN WILL DECR TO 2-3/10 *Pt DEMON APPROP BED MOB/ POSITIONING/ SIT <-> STAND/ CAR TRANSFERS Coal Tower Operator Goals: *Pt RESUME AT LEAST PLOF EVIDENT W IMPROVED LEFI SCORE (AT EVAL ) *Pt INDEP W PROGR HEP AND SELF-SX MGMT TECHN *Pt WILL IMPROVE LUMBOPELVIC/ Lt LE STRENGTH TO AT LEAST 5-/5 Treatment Plan: Modalities to reduce pain, spasms and effusion. Manual therapy to restore motion and function. Therapeutic exercise to improve strength and flexibility. Neuromuscular re-education for posture and balance. Therapeutic activities to return to functional activities of daily living. Electronically signed by: ARMANI ALVES,PT Please sign and return to therapist. Thank you for your referral.
--- NOTE | 2023-04-08 09:50 | MHC.PT.DC ---
[facility] [place] Office [place] Office [place] Office [address] [place] [address] [phone] F: [phone] F: [phone] F: [phone] F: [phone] Physical Therapy Discharge Report Diagnosis: LEFT AARON Date of Surgery: 02/09/23 Date of Evaluation: 02/25/23 Date of Discharge: 04/08/23 Treatments to Date: 7 Cancellations to Date: 2 No Shows to Date: 5 Discharge Status: Improved Function Patient Elected to Stop Visit Non-compliance Discharge Summary: Pt WAS PROGRESSING IN PT, HE IS INDEP W HEP AND HAS A MORE EFFICIENT GAIT PATTERN- HE IS DISCHARGED THIS DATE DUE TO POOR ATTENDANCE FOR SCHED PT APPTS DESPITE F/U PHONE CALLS AND REMINDER CALLS. Electronically signed by: ARMANI ALVES,PT Please sign and return to therapist. Thank you for your referral.
== END 2023-04-08 09:51 | disposition home or self-care (01) ==
LOC: HO.PT 13:00
PROVIDERS: PCP General Practice; Visit Provider Orthopaedic Surgery
DX: M16.12 Unilateral primary osteoarthritis, left hip (principal)
CPT/HCPCS: 97110; 97116; 97162; 97530

== ENCOUNTER → 2023-03-25 11:04 | Outpatient (BNVA) | payer MEDICAID, SELFPAY | PROVIDERS: PCP General Practice; Visit Provider Physician Assistant | DX: M16.12 Unilateral primary osteoarthritis, left hip (principal); M17.12 Unilateral primary osteoarthritis, left knee; Z96.642 Presence of left artificial hip joint | CPT/HCPCS: 99212 ==

== ENCOUNTER 2023-04-03 13:34 | Inpatient (IN) | payer MEDICAID, SELFPAY ==
[2023-04-03] VITALS (7 sets, daily range): BP systolic 122–163; BP diastolic 82–95; PULSE 65–107; RESP 14–20; TEMP 36–36.7; O2SAT 96–97; BMI 32.8; BMI 33.1
--- NOTE | ~2023-04-03 | CT_ITS ---
CT HEAD WITHOUT CONTRAST CLINICAL HISTORY: Dizziness TECHNIQUE: CT of the brain was performed from the skull base through the vertex using a routine non-contrast protocol. All CT exams at this location are performed using dose optimization techniques as appropriate to a performed exam including at least one of the following: * Automated exposure control * Adjustment of the mA and/or kV according to patient size (this includes techniques or standardized protocols for targeted exams where dose is matched to indication / reason for exam; i/e/ extremities or head) * Use of iterative reconstructive technique DLP: 733 mGy-cm COMPARISON: None. RESULTS: There is no evidence of acute intracranial hemorrhage, acute large vessel infarct, midline shift or mass effect. The pearce-white differentiation is preserved. The ventricles and sulci are within normal limits in size and configuration. There is no evidence of hydrocephalus. There are no extraaxial collections. Osseous structures are intact. Paranasal sinuses and mastoid air cells are well aerated. CT/CT head/brain wo IV con IMPRESSION: Unremarkable non-contrast CT of the brain.
--- NOTE | ~2023-04-03 | CT_ITS ---
EXAMINATION: CT ANGIOGRAM OF THE CHEST WITH AND WITHOUT CONTRAST (CT PULMONARY ANGIOGRAM FOR PE) CLINICAL INFORMATION: Chest pain., SOB COMPARISON: Chest x-ray 04/03/2023 TECHNIQUE: Prior to contrast administration, noncontrast localization images were obtained. Subsequently, multidetector volumetric imaging was performed from the thoracic inlet to below the diaphragms following the administration of 85 mL Omnipaque 350 intravenous contrast. No contrast reaction reported Sagittal, coronal, and MIP oblique sagittal reformatted images were obtained on the CT workstation, uploaded to PACS, and reviewed. This CT examination was performed using dose optimization techniques as appropriate, variously including the following: *Automated exposure control *Adjustment of mA and/or kV according to patient size (this includes techniques or standardized protocols for targeted exams where dose is matched to indication/reason for exam; i.e. extremities or head) *Use of iterative reconstruction technique Total exam dose-length product 515 mGy-cm FINDINGS: QUALITY OF STUDY/CONTRAST BOLUS: Satisfactory. PULMONARY ARTERIES: No pulmonary emboli. THORACIC AORTA: No aneurysm. Small volume of calcifications of thoracic aortic arch. LUNG: No focal consolidation, nodules or masses. PLEURA: No pleural effusion or pneumothorax. MEDIASTINUM: Normal heart size. No pericardial effusion. No hilar or mediastinal lymphadenopathy. No evidence of septal bowing or right heart strain. CORONARY ARTERY CALCIFICATION: None visualized on this study. CHEST WALL/AXILLA: No axillary or internal mammary lymphadenopathy. OSSEOUS STRUCTURES: No acute or suspicious osseous abnormality. Degenerative spondylosis of dorsal spine. UPPER ABDOMEN: Unremarkable. No reflux of contrast into the hepatic veins to suggest elevated right heart pressures. CT/CT angio chest PE protocol IMPRESSION: Normal CT of chest. No evidence of pulmonary embolism. VTE: negative.
--- NOTE | ~2023-04-03 | XR_ITS ---
EXAMINATION: XR CHEST CLINICAL INFORMATION: Chest pain. COMPARISON: None available. TECHNIQUE: Frontal view of the chest was obtained. FINDINGS: No significant abnormality is noted involving the heart, lungs, mediastinum, bony thorax or soft tissues. XR/XR chest 1V IMPRESSION: Unremarkable chest examination.
--- NOTE | 2023-04-03 13:39 | ED_ITS ---
HPI - General Adult General Chief complaint: Dizziness <MANAN Durand - Last Filed: 04/03/23 13:43> Stated complaint: high bp, sweats, back pain <MANAN Durand - Last Filed: 04/03/23 13:43> Time Seen by Provider: 04/03/23 13:56 <MANAN Durand - Last Filed: 04/03/23 13:43> Source: patient <Hai Matias MD - Last Filed: 04/03/23 16:11> Mode of arrival: ambulatory <Hai Matias MD - Last Filed: 04/03/23 16:11> Limitations: no limitations <Hai Matias MD - Last Filed: 04/03/23 16:11> History of Present Illness HPI narrative: THIS IS A 57 YEARS OLD MALE PRESENTED TO THE EMERGENCY DEPARTMENT COMPLAINING OF DIZZINESS DIAPHORESIS. HE STATES THAT HE WAS MOVING THE LAWN AND HE GOT DIZZY, HE WENT TO THE HOUSE HE WAS DIAPHORETIC. PATIENT HAS HISTORY OF HYPERTENSION, hE HAD A HIP REPLACEMENT 1 AND 1/2 MONTH AGO <Hai Matias MD - Last Filed: 04/03/23 16:11> Onset (ago): hour(s) (2) <Hai Matias MD - Last Filed: 04/03/23 16:11> Radiation: non-radiation <Hai Matias MD - Last Filed: 04/03/23 16:11> Severity: moderate <Hai Matias MD - Last Filed: 04/03/23 16:11> Pain Consistency: now resolved <Hai Matias MD - Last Filed: 04/03/23 16:11> Relieving factors: none <Hai Matias MD - Last Filed: 04/03/23 16:11> Exacerbating factors: none <Hai Matias MD - Last Filed: 04/03/23 16:11> Related Data Home medications: Home Medications Medication Instructions Recorded Confirmed albuterol sulfate 90 mcg/actuation 1 inh inhalation QID PRN Wheezing 11/20/20 02/04/23 aerosol inhaler (ProAir HFA) amlodipine 10 mg tablet 10 mg PO DAILY 01/21/21 02/04/23 albuterol sulfate 2.5 mg/3 mL 2 mg inhalation TID 05/04/22 02/09/23 (0.083 %) solution for nebulization bupropion HCl 150 mg 24 hr tablet, 150 mg PO QAM 05/04/22 02/04/23 extended release meclizine 25 mg tablet 25 mg PO TID PRN Dizziness 05/04/22 02/04/23 omeprazole 20 mg capsule,delayed 20 mg PO DAILY abdominal pain 05/04/22 02/04/23 release nicotine (polacrilex) 4 mg buccal 4 mg buccal Q8H PRN Smoking 09/01/22 02/04/23 lozenge Cessation atorvastatin 40 mg tablet 1 tab PO DAILY 01/26/23 02/04/23 cetirizine 10 mg tablet 1 tab PO QAM 01/26/23 02/04/23 chlorthalidone 25 mg tablet 1 tab PO DAILY 01/26/23 02/04/23 nortriptyline 10 mg capsule 1 cap PO BEDTIME 01/26/23 02/04/23 methadone 5 mg tablet 61 mg PO DAILY 02/08/23 02/09/23 Previous Rx's Medication Instructions Recorded umeclidinium 62.5 mcg-vilanterol 1 inh inhalation DAILY 30 days #1 06/05/22 25 mcg/actuation powdr for ea inhalation (Anoro Ellipta) walker #1 ea 02/04/23 acetaminophen 325 mg tablet 650 mg PO Q6H PRN Pain, Mild (Pain 02/11/23 Scale 1-3) 30 days #240 tabs aspirin 325 mg tablet 325 mg PO BID 42 days #84 tabs 02/11/23 celecoxib 200 mg capsule 200 mg PO BID 14 days #28 caps 02/11/23 docusate sodium 100 mg capsule 100 mg PO BID 14 days #28 caps 02/11/23 Cane #1 ea 03/11/23 oxycodone 5 mg tablet 5 mg PO Q12H PRN Pain, Moderate 03/30/23 (Pain Scale 4-6 7 days #14 tabs <MANAN Durand - Last Filed: 04/03/23 13:43> Allergies/adverse reactions: Allergies Allergy/AdvReac Type Severity Reaction Status Date / Time No Known Allergies Allergy Verified 04/03/23 13:38 <MANAN Durand - Last Filed: 04/03/23 13:43> Review of Systems Cardiovascular: Cardiovascular: Denies chest pain <Hai Matias MD - Last Filed: 04/03/23 16:11> Respiratory: Respiratory: Reports no additional respiratory complaints <Hai Matias MD - Last Filed: 04/03/23 16:11> Musculoskeletal: Musculoskeletal: Reports no additional musculoskeletal complaints <Hai Matias MD - Last Filed: 04/03/23 16:11> [facility] Past Medical History Medical History: Medical History Arthritis Asthma COPD (chronic obstructive pulmonary disease) GERD (gastroesophageal reflux disease) History of depression History of drug abuse History of kidney stones Hx of hepatitis Hypertension Methadone use Osteoarthritis of left knee Primary osteoarthritis of left hip Sleep apnea <MANAN Durand - Last Filed: 04/03/23 13:43> Surgical History: Surgical History History of laryngoscopy History of toe surgery Hx of colonoscopy <MANAN Durand - Last Filed: 04/03/23 13:43> Family History Family History: Family History Father No problems noted. Mother No problems noted. <MANAN Durand - Last Filed: 04/03/23 13:43> Social History Social History: Social History Household Members: Family Housing: Apartment Are you a primary transition of care specialist to a significant other at home: No Do you presently have visiting nurse or other home services: No Alcohol intake: never Patient Tobacco Use Status: Current everyday Tobacco user Tobacco use type: Cigarette Cigarette Packs Per Day: 0.5 Cigarettes Per Day: 10.0 Years Smoked: 30 Smoked in Last 30 Days: No Second Hand Smoke Exposure: No Use of substances other than those prescribed or required for medical reasons: No Advance Directives: No Advance Directives Information Provided: Yes service: No Current occupational status: unemployed Current occupation: Right Handed <MANAN Durand - Last Filed: 04/03/23 13:43> Physical Exam ED Vital Signs: Vital Signs - 24 hr 04/03/23 13:38 04/03/23 13:51 04/03/23 13:55 Temperature 96.8 F 98.0 F Pulse Rate 107 H 91 100 Respiratory Rate 20 16 Blood Pressure 163/95 H 146/90 H 146/92 H Pulse Oximetry 97 97 Oxygen Delivery Method Room Air 04/03/23 13:52 04/03/23 13:53 Temperature Pulse Rate 91 100 Respiratory Rate Blood Pressure 147/91 H 146/92 H Pulse Oximetry Oxygen Delivery Method BMI result Body Mass Index 32.8 <MANAN Durand - Last Filed: 04/03/23 13:43> Vital Signs - 24 hr 04/03/23 13:38 04/03/23 13:51 04/03/23 13:55 Temperature 96.8 F 98.0 F Pulse Rate 107 H 91 100 Respiratory Rate 20 16 Blood Pressure 163/95 H 146/90 H 146/92 H Pulse Oximetry 97 97 Oxygen Delivery Method Room Air 04/03/23 13:52 04/03/23 13:53 Temperature Pulse Rate 91 100 Respiratory Rate Blood Pressure 147/91 H 146/92 H Pulse Oximetry Oxygen Delivery Method BMI result Body Mass Index 32.8 <Hai Matias MD - Last Filed: 04/03/23 16:11> Const General: cooperative <Hai Matias MD - Last Filed: 04/03/23 16:11> Nutritional Appearance: well nourished <Hai Matias MD - Last Filed: 04/03/23 16:11> Orientation/consciousness: patient oriented x3 <Hai Matias MD - Last Filed: 04/03/23 16:11> Limitations: no limitations <Hai Matias MD - Last Filed: 04/03/23 16:11> HENMT Head: Yes normal to inspection <Hai Matias MD - Last Filed: 04/03/23 16:11> General nose exam: Normal external nose present <aHi Matias MD - Last Filed: 04/03/23 16:11> Face and sinus: Yes normal facial exam <Hai Matias MD - Last Filed: 04/03/23 16:11> Mouth: Normal oral and palatal mucosa present <Hai Matias MD - Last Filed: 04/03/23 16:11> Throat: Yes posterior oropharynx normal <Hai Matias MD - Last Filed: 04/03/23 16:11> Neck Neck: Yes normal visual inspection <Hai Matias MD - Last Filed: 04/03/23 16:11> Chest Chest palpation & inspection: normal inspection of the chest <Hai Matias MD - Last Filed: 04/03/23 16:11> Resp Effort & Inspection: normal respiratory effort <Hai Matias MD - Last Filed: 04/03/23 16:11> Auscultation: clear to auscultation bilaterally <Hai Matias MD - Last Filed: 04/03/23 16:11> Cardio Jugular venous distension: no JVD <Hai Matias MD - Last Filed: 04/03/23 16:11> Rate: regular rate <Hai Matias MD - Last Filed: 04/03/23 16:11> Rhythm: regular rhythm <Hai Matias MD - Last Filed: 04/03/23 16:11> GI Inspection: Yes normal to inspection <Hai Matias MD - Last Filed: 04/03/23 16:11> Palpation (GI): Soft to palpation, not firm, nontender and no guarding <Hai Matias MD - Last Filed: 04/03/23 16:11> Skin General skin exam: no rashes or lesions noted and elasticity normal <Hai Matias MD - Last Filed: 04/03/23 16:11> Lesions: no lesions <Hai Matias MD - Last Filed: 04/03/23 16:11> Rashes: no rashes <Hai Matias MD - Last Filed: 04/03/23 16:11> Hair: normal <Hai Matias MD - Last Filed: 04/03/23 16:11> Neuro General: patient oriented x3 <MD Luis F Bañuelos Last Filed: 04/03/23 16:11> Course Course Course Narrative: RME: 57yo M w/PMHx COPD, HTN, s/p total left hip arthroplasty on 02/[address] Jama presenting to the ED complaining of feeling room spinning dizzy, chest pressure/tightness, SOB, and diaphoresis [employer] s/p working in yard Patient tachycardic, diaphoretic, diminished lung sounds bibasilarly EKG, labs including D-dimer, CXR, orthostatics ordered Full HPI, ROS and PE to be performed by primary ED provider. <MANAN Durand - Last Filed: 04/03/23 13:43> Reevaluation(s) Reevaluation #1: repeat tropi pending cta chest pending signed out to Dr Daniels <Hai Matias MD - Last Filed: 04/03/23 16:11> Time: 16:10 <Hai Matias MD - Last Filed: 04/03/23 16:11> Medical Decision Making Medical Decision Making MDM Narrative: PATIENT PRESENTED WITH DIAPHORESIS DIZZINESS ON EXERTION WE GET THE LABS, EKG COMES ST-T <Hai Matias MD - Last Filed: 04/03/23 16:11> Differential Diagnosis Differential Diagnoses: The differential diagnosis associated with the presentation includes <Hai Matias MD - Last Filed: 04/03/23 16:11> BENIGN POSITION INVERTING GOES/ACUTE CORONARY SYNDROME/PE <Hai Matias MD - Last Filed: 04/03/23 16:11> Lab Data Result Diagrams: 04/03/23 14:11 04/03/23 14:11 <MANAN Durand - Last Filed: 04/03/23 13:43> Labs: Lab Results 04/03/23 04/03/23 04/03/23 Range/Units 14:11 14:11 14:12 WBC 10.9 H (4.8-10.8) X10*3/uL RBC 4.91 D (4.60-5.80) X10*6/uL Hgb 14.0 D (14.0-18.0) g/dl Hct 42.5 D (42.0-52.0) % MCV 86.6 (80.0-98.0) fL MCH 28.5 (27.0-33.0) pg MCHC 32.9 (31.0-36.0) g/dl RDW 14.0 (11.0-16.0) % Plt Count 411 H D (160-400) X10*3/uL MPV 10.3 (9.4-12.4) fL Immature Gran % (Auto) 0.4 (0.0-0.4) % Neut % (Auto) 73.3 H (45-73) % Lymph % (Auto) 16.4 L (20-40) % [place] % (Auto) 9.0 (2-11) % Eos % (Auto) 0.5 (0-4) % Baso % (Auto) 0.4 (0-2) % Lymph # (Auto) 1.8 (1.2-4.9) X10*3/uL [place] # (Auto) 1.0 (0.1-1.2) X10*3/uL Eos # (Auto) 0.1 (0.0-0.4) X10*3/uL Baso # (Auto) 0.0 (0.0-0.2) X10*3/uL Abs Immat Gran (auto) 0.04 H (0.00-0.03) X10*3/uL Absolute Neuts (auto) 8.0 (2.0-8.3) x10*3/uL Absolute Nucleated RBC 0.000 (0.0-0.012) X10*3/uL Nucleated RBC % (auto) 0.0 (0.0-0.2) /100WBC PT 10.8 (10.0-13.1) SEC INR 0.9 (0.9-1.1) D-Dimer High Sensitivty 647 NG/ML Troponin I High Sens (<3.5-35.0) ng/L B-Natriuretic Peptide < 10 (<100) pg/mL Urine Color Urine Appearance Urine pH (5.0-9.0) Ur Specific [place] (1.005-1.025) Urine Protein (Neg-Trace) mg/dL Urine Glucose (UA) (Negative) mg/dL Urine Ketones (Negative) mg/dL Urine Blood (Negative) Urine Nitrite (Negative) Ur Leukocyte Esterase (Negative) Urine RBC (0-2) /HPF Urine WBC (0-5) /HPF Ur Squamous Epith Cells (0-2) /HPF Calcium Oxalate Crystal Urine Bacteria (None Seen) Hyaline Casts (0-2) /LPF 04/03/23 04/03/23 Range/Units 14:12 14:23 WBC (4.8-10.8) X10*3/uL RBC (4.60-5.80) X10*6/uL Hgb (14.0-18.0) g/dl Hct (42.0-52.0) % MCV (80.0-98.0) fL MCH (27.0-33.0) pg MCHC (31.0-36.0) g/dl RDW (11.0-16.0) % Plt Count (160-400) X10*3/uL MPV (9.4-12.4) fL Immature Gran % (Auto) (0.0-0.4) % Neut % (Auto) (45-73) % Lymph % (Auto) (20-40) % [place] % (Auto) (2-11) % Eos % (Auto) (0-4) % Baso % (Auto) (0-2) % Lymph # (Auto) (1.2-4.9) X10*3/uL [place] # (Auto) (0.1-1.2) X10*3/uL Eos # (Auto) (0.0-0.4) X10*3/uL Baso # (Auto) (0.0-0.2) X10*3/uL Abs Immat Gran (auto) (0.00-0.03) X10*3/uL Absolute Neuts (auto) (2.0-8.3) x10*3/uL Absolute Nucleated RBC (0.0-0.012) X10*3/uL Nucleated RBC % (auto) (0.0-0.2) /100WBC PT (10.0-13.1) SEC INR (0.9-1.1) D-Dimer High Sensitivty NG/ML Troponin I High Sens 32.7 (<3.5-35.0) ng/L B-Natriuretic Peptide (<100) pg/mL Urine Color Dark Yellow Urine Appearance Cloudy Urine pH 6.0 (5.0-9.0) Ur Specific [place] 1.020 (1.005-1.025) Urine Protein 100 (2+) H (Neg-Trace) mg/dL Urine Glucose (UA) Negative (Negative) mg/dL Urine Ketones Trace (Negative) mg/dL Urine Blood Negative (Negative) Urine Nitrite Negative (Negative) Ur Leukocyte Esterase Small (1+) H (Negative) Urine RBC 3-5 H (0-2) /HPF Urine WBC 6-10 H (0-5) /HPF Ur Squamous Epith Cells 6-10 (0-2) /HPF Calcium Oxalate Crystal Present Urine Bacteria None Seen (None Seen) Hyaline Casts >20 (0-2) /LPF <MANAN Durand - Last Filed: 04/03/23 13:43> Lab Results 04/03/23 04/03/23 04/03/23 Range/Units 14:11 14:11 14:12 WBC 10.9 H (4.8-10.8) X10*3/uL RBC 4.91 D (4.60-5.80) X10*6/uL Hgb 14.0 D (14.0-18.0) g/dl Hct 42.5 D (42.0-52.0) % MCV 86.6 (80.0-98.0) fL MCH 28.5 (27.0-33.0) pg MCHC 32.9 (31.0-36.0) g/dl RDW 14.0 (11.0-16.0) % Plt Count 411 H D (160-400) X10*3/uL MPV 10.3 (9.4-12.4) fL Immature Gran % (Auto) 0.4 (0.0-0.4) % Neut % (Auto) 73.3 H (45-73) % Lymph % (Auto) 16.4 L (20-40) % [place] % (Auto) 9.0 (2-11) % Eos % (Auto) 0.5 (0-4) % Baso % (Auto) 0.4 (0-2) % Lymph # (Auto) 1.8 (1.2-4.9) X10*3/uL [place] # (Auto) 1.0 (0.1-1.2) X10*3/uL Eos # (Auto) 0.1 (0.0-0.4) X10*3/uL Baso # (Auto) 0.0 (0.0-0.2) X10*3/uL Abs Immat Gran (auto) 0.04 H (0.00-0.03) X10*3/uL Absolute Neuts (auto) 8.0 (2.0-8.3) x10*3/uL Absolute Nucleated RBC 0.000 (0.0-0.012) X10*3/uL Nucleated RBC % (auto) 0.0 (0.0-0.2) /100WBC PT 10.8 (10.0-13.1) SEC INR 0.9 (0.9-1.1) D-Dimer High Sensitivty 647 NG/ML Troponin I High Sens (<3.5-35.0) ng/L B-Natriuretic Peptide < 10 (<100) pg/mL Urine Color Urine Appearance Urine pH (5.0-9.0) Ur Specific [place] (1.005-1.025) Urine Protein (Neg-Trace) mg/dL Urine Glucose (UA) (Negative) mg/dL Urine Ketones (Negative) mg/dL Urine Blood (Negative) Urine Nitrite (Negative) Ur Leukocyte Esterase (Negative) Urine RBC (0-2) /HPF Urine WBC (0-5) /HPF Ur Squamous Epith Cells (0-2) /HPF Calcium Oxalate Crystal Urine Bacteria (None Seen) Hyaline Casts (0-2) /LPF 04/03/23 04/03/23 Range/Units 14:12 14:23 WBC (4.8-10.8) X10*3/uL RBC (4.60-5.80) X10*6/uL Hgb (14.0-18.0) g/dl Hct (42.0-52.0) % MCV (80.0-98.0) fL MCH (27.0-33.0) pg MCHC (31.0-36.0) g/dl RDW (11.0-16.0) % Plt Count (160-400) X10*3/uL MPV (9.4-12.4) fL Immature Gran % (Auto) (0.0-0.4) % Neut % (Auto) (45-73) % Lymph % (Auto) (20-40) % [place] % (Auto) (2-11) % Eos % (Auto) (0-4) % Baso % (Auto) (0-2) % Lymph # (Auto) (1.2-4.9) X10*3/uL [place] # (Auto) (0.1-1.2) X10*3/uL Eos # (Auto) (0.0-0.4) X10*3/uL Baso # (Auto) (0.0-0.2) X10*3/uL Abs Immat Gran (auto) (0.00-0.03) X10*3/uL Absolute Neuts (auto) (2.0-8.3) x10*3/uL Absolute Nucleated RBC (0.0-0.012) X10*3/uL Nucleated RBC % (auto) (0.0-0.2) /100WBC PT (10.0-13.1) SEC INR (0.9-1.1) D-Dimer High Sensitivty NG/ML Troponin I High Sens 32.7 (<3.5-35.0) ng/L B-Natriuretic Peptide (<100) pg/mL Urine Color Dark Yellow Urine Appearance Cloudy Urine pH 6.0 (5.0-9.0) Ur Specific [place] 1.020 (1.005-1.025) Urine Protein 100 (2+) H (Neg-Trace) mg/dL Urine Glucose (UA) Negative (Negative) mg/dL Urine Ketones Trace (Negative) mg/dL Urine Blood Negative (Negative) Urine Nitrite Negative (Negative) Ur Leukocyte Esterase Small (1+) H (Negative) Urine RBC 3-5 H (0-2) /HPF Urine WBC 6-10 H (0-5) /HPF Ur Squamous Epith Cells 6-10 (0-2) /HPF Calcium Oxalate Crystal Present Urine Bacteria None Seen (None Seen) Hyaline Casts >20 (0-2) /LPF <Hai Matias MD - Last Filed: 04/03/23 16:11> Independent Interpretation I performed an independent interpretation of an: EKG (EKG SHOWS NORMAL SINUS RHYTHM WITH A RATE OF [address]-T CHANGE) <Hai Matias MD - Last Filed: 04/03/23 16:11> Discharge Plan Discharge Clinical Impression: Dizziness, Diaphoresis <MANAN Durand - Last Filed: 04/03/23 13:43> Patient Disposition: Still a Patient <MANAN Durand - Last Filed: 04/03/23 13:43> Prescriptions: No Action Anoro Ellipta 62.5-25 mcg/actuation blister with device 1 inh inhalation DAILY 30 Days Qty: 1 6RF methadone 5 mg tablet 61 mg PO DAILY oxycodone 5 mg tablet 5 mg PO Q12H PRN (Reason: Pain, Moderate (Pain Scale 4-6) 7 Days Qty: 14 0RF Rx Instructions: Partial Fill upon patient request. atorvastatin 40 mg tablet 1 tab PO DAILY cetirizine 10 mg tablet 1 tab PO QAM chlorthalidone 25 mg tablet 1 tab PO DAILY nortriptyline 10 mg capsule 1 cap PO BEDTIME docusate sodium 100 mg Capsule 100 mg PO BID 14 Days Qty: 28 0RF celecoxib 200 mg Capsule 200 mg PO BID 14 Days Qty: 28 0RF acetaminophen 325 mg Tablet 650 mg PO Q6H PRN (Reason: Pain, Mild (Pain Scale 1-3)) 30 Days Qty: 240 0RF aspirin 325 mg tablet 325 mg PO BID 42 Days Qty: 84 0RF albuterol sulfate [ProAir HFA] 90 mcg/actuation HFA aerosol inhaler 1 inh inhalation QID PRN (Reason: Wheezing) amlodipine 10 mg tablet 10 mg PO DAILY bupropion HCl 150 mg tablet extended release 24 hr 150 mg PO QAM omeprazole 20 mg capsule,delayed release(DR/EC) 20 mg PO DAILY albuterol sulfate 2.5 mg /3 mL (0.083 %) solution for nebulization 2 mg inhalation TID meclizine 25 mg tablet 25 mg PO TID PRN (Reason: Dizziness) nicotine (polacrilex) 4 mg lozenge 4 mg buccal Q8H PRN (Reason: Smoking Cessation) (DME) paras Misc See Rx Instructions .MEDSUPPLY Qty: 1 0RF Rx Instructions: Folding Front wheeled walker (DME) Cane See Rx Instructions .Route .MEDSUPPLY Qty: 1 0RF Rx Instructions: As directed <MANAN Durand - Last Filed: 04/03/23 13:43>
--- NOTE | 2023-04-03 13:41 | ECG_ITS ---
Test Reason : CHEST PAIN Blood Pressure : / mmHG Vent. Rate : 094 BPM Atrial Rate : 094 BPM P-R Int : 148 ms QRS Dur : 088 ms QT Int : 338 ms P-R-T Axes : 051 069 034 degrees QTc Int : 422 ms Normal sinus rhythm Normal ECG When compared with ECG of 27-JAN-2023 13:04, Vent. rate has increased BY 33 BPM Referred By: Netta Barfield Electronically Signed By:LAM HAGAN MD
[2023-04-03 14:16] LABS: MANUAL DIFF FLAG NO
--- NOTE | 2023-04-03 14:18 | PC.NURSE ---
MD at bedside to discuss plan with patient and patients who is bedside. Lab work obtained, IV placed, Chest xray done, awaiting further orders
[2023-04-03 14:23] LABS: INTERNATIONAL NORM RATIO 0.9 (0.9-1.1); Prothrombin Time 10.8 SEC (10.0-13.1)
[2023-04-03 14:24] LABS: D Dimer High Sensitivity 647 NG/ML
[2023-04-03 14:31] LABS: Basophils Percent Auto 0.4 % (0-2); Mean Corpuscular Hemoglobin 28.5 pg (27.0-33.0)
[2023-04-03 14:32] LABS: Appearance Urine Cloudy; Color Urine Dark Yellow; Glucose Urine UA Negative (Negative); Leukocyte Esterase Urine Small (1+) (Negative); Nitrite Urine Negative (Negative); UMIC TRIGGER UACC YES; Urine Blood Negative (Negative); Urine Ketones Trace mg/dL (Negative); Urine Protein 100 (2+) mg/dL (Neg-Trace)
[2023-04-03 14:37] LABS: B Type Natriuretic Peptide < 10 pg/mL (<100); Eosinophils Absolute Auto 0.1 X10*3/uL (0.0-0.4); Eosinophils Percent Auto 0.5 % (0-4); Hematocrit 42.5 % (42.0-52.0); Imm Gran Abs Auto 0.04 X10*3/uL (0.00-0.03); Imm Gran Pct Auto 0.4 % (0.0-0.4); Lymphocytes Absolute Auto 1.8 X10*3/uL (1.2-4.9); Lymphocytes Percent Auto 16.4 % (20-40); Mean Corpuscular HGB Conc 32.9 g/dl (31.0-36.0); Mean Corpuscular Volume 86.6 fL (80.0-98.0); Mean Platelet Volume 10.3 fL (9.4-12.4); Neutrophils Percent Auto 73.3 % (45-73); Platelet Count 411 X10*3/uL (160-400); Red Blood Count 4.91 X10*6/uL (4.60-5.80); White Blood Count 10.9 X10*3/uL (4.8-10.8)
[2023-04-03 14:38] LABS: Troponin-I High Sensitivity 32.7 ng/L (<3.5-35.0)
[2023-04-03 14:45] LABS: Bacteria Urine None Seen (None Seen); Calcium Oxalate Crystals Urine Present; Hyaline Casts Urine >20 /LPF (0-2); UACC Culture Trigger YES
[2023-04-03 16:58] LABS: Alanine Aminotransferase 21 U/L (0-40); Alkaline Phosphatase 119 U/L (39-117); Anion Gap 15 (12-20); Aspartate Amino Transferase 23 U/L (5-37); Bilirubin Direct 0.1 mg/dL (0.0-0.5); Bilirubin Total 0.4 mg/dL (0.0-1.0); Blood Urea Nitrogen 17 mg/dL (9-16); Calcium 9.3 mg/dL (8.4-10.2); Carbon Dioxide 26 mmol/L (22-29); Chloride 99 mmol/L (96-108); Creatinine Clr Calc Pharmacy 86.2; Estimated Glomerular Filt Rate > 60; Glucose Random 88 mg/dL (60-115); Magnesium 2.1 mg/dL (1.6-2.6); Potassium 4.4 mmol/L (3.3-5.1); Sodium 136 mmol/L (135-145); Total Protein 7.3 g/dL (6.5-8.0)
[2023-04-03] MEDS: iohexoL 350 MG/ML 100 ML INFUS..BTL IV (17:32)
--- NOTE | 2023-04-03 19:49 | P.HPHOSP_ITS ---
Pt comes in with complaints of chest pressure, SOB, diaphoresis suggestive of ACS. given risk factors, positive trops and typical cardiac symptoms will tx with heparin. Continue ASA, continue high dose statin. will obtain echo. cardiology consulted History of Present Illness Date of Service: 04/03/23 Chief Complaint: Chest pressure Pt is a 57-year-old male with a PMH significant for asthma/COPD overlap syndrome, HTN, vertigo, CHILO noncompliant with CPAP, GERD, osteoarthritis of the left hip s/p left THR on 02/09/2023, and hx of opiate abuse on methadone who presents to the ED with?chest pressure/SOB, dizziness, nausea, and diaphoresis. Patient states that he was mowing his lawn with a self-propelled lawnmower when he suddenly became dizzy, sweaty, nauseous, and felt like he could not breathe. Chest pressure was located the upper center of his chest, nonradiating. Patient went into the house, drink some water, and took a shower but was still felt short of breath and diaphoretic. Symptoms lasted about 1/2 hour. Patient reports he has had a couple of similar episodes in the past but none that lasted this long or prompted an emergency room visit. Patient notes he has had palpitations in the past for which he has been seen by Cardiology with no definitive diagnosis. Pt also says he has occasionally felt his right eye bulging and having a drooping eyelid for the past few weeks. Currently not experiencing those symptoms. Has set up an outpatient appointment next week with PCP to discuss this. Patient denies vomiting, fever, chills, abdominal pain. No headache, vision changes. Of note, patient had a negative pharmacologic stress test here in September of 2022. Echocardiogram from 08/07/2022 showed normal left ventricular size thickness and systolic function with EF of 60-65%. Holter monitor from 08/07/2022 showed average ventricular rate of 68 beats per minute with very rare supraventricular ectopy and no sustained arrhythmia as. In the ED patient was afebrile but tachycardic up to 107, hypertensive up to 163/95. Labs were significant for elevated D-dimer of 647, initial troponin 32.7 with repeat 68.0. No leukocytosis, H&H stable. Electrolytes normal. Renal function WNL. Hepatic function WNL. CXR negative. CT of head unremarkable showing no acute intracranial pathology. CTA of chest was normal, negative for pulmonary embolism. EKG demonstrated normal sinus rhythm without evidence of ST elevation or depression. Pt will be placed on heparin drip and admitted to the hospital for treatment and further evaluation possible stable angina. Review of Systems Review of Systems: Chest pressure/SOB Diaphoresis Dizziness Nausea No fever, chills, vomiting, abdominal pain No headache Yes all other systems are reviewed and are negative [facility] Medical History Arthritis Asthma COPD (chronic obstructive pulmonary disease) GERD (gastroesophageal reflux disease) History of depression History of drug abuse History of kidney stones Hx of hepatitis Hypertension Methadone use Osteoarthritis of left knee Primary osteoarthritis of left hip Sleep apnea Family History Father No problems noted. Mother No problems noted. Surgical History History of laryngoscopy History of toe surgery Hx of colonoscopy Social History Household Members: Family Housing: Apartment Are you a primary customer care team coach to a significant other at home: No Do you presently have visiting nurse or other home services: No Alcohol intake: never Patient Tobacco Use Status: Current everyday Tobacco user Tobacco use type: Cigarette Cigarette Packs Per Day: 0.5 Cigarettes Per Day: 10.0 Years Smoked: 30 Smoked in Last 30 Days: No Second Hand Smoke Exposure: No Use of substances other than those prescribed or required for medical reasons: No Advance Directives: No Advance Directives Information Provided: Yes service: No Current occupational status: unemployed Current occupation: Right Handed Meds Allergies Allergy/AdvReac Type Severity Reaction Status Date / Time No Known Allergies Allergy Verified 04/03/23 13:38 Active Medications: Current Medications Pharmacy Consult (Consult Rx Perform Med Rec) 1 each MISCELLANE ONCE PRN PRN Reason: Consult order Home Medications Medication Instructions Recorded Confirmed Last Taken Type albuterol sulfate 90 mcg/actuation 1 inh inhalation QID PRN Wheezing 11/20/20 02/04/23 Unknown History aerosol inhaler (ProAir HFA) amlodipine 10 mg tablet 10 mg PO DAILY 01/21/21 02/04/23 02/09/23 History albuterol sulfate 2.5 mg/3 mL 2 mg inhalation TID 05/04/22 02/09/23 02/09/23 History (0.083 %) solution for nebulization bupropion HCl 150 mg 24 hr tablet, 150 mg PO QAM 05/04/22 02/04/23 02/08/23 History extended release meclizine 25 mg tablet 25 mg PO TID PRN Dizziness 05/04/22 02/04/23 Unknown History omeprazole 20 mg capsule,delayed 20 mg PO DAILY abdominal pain 05/04/22 02/04/23 02/09/23 History release nicotine (polacrilex) 4 mg buccal 4 mg buccal Q8H PRN Smoking 09/01/22 02/04/23 Unknown History lozenge Cessation atorvastatin 40 mg tablet 1 tab PO DAILY 01/26/23 02/04/23 02/08/23 History cetirizine 10 mg tablet 1 tab PO QAM 01/26/23 02/04/23 02/08/23 History chlorthalidone 25 mg tablet 1 tab PO DAILY 01/26/23 02/04/23 02/08/23 History nortriptyline 10 mg capsule 1 cap PO BEDTIME 01/26/23 02/04/23 02/08/23 History methadone 5 mg tablet 61 mg PO DAILY 02/08/23 02/09/23 02/09/23 History Physical Exam Vital Signs and Narrative: Vital Signs: Last Vital Signs Temp 97.8 F 04/03/23 18:00 Pulse 65 04/03/23 18:00 Resp 14 04/03/23 18:00 BP 122/82 04/03/23 18:00 Pulse Ox 97 04/03/23 18:00 O2 Del Method Room Air 04/03/23 18:00 BMI result Body Mass Index 32.8 Constitutional: Alert, in no acute distress. Mental Status: Oriented to person, place and time. Eyes: Pupils are equal, round, and reactive to light. Mild redness under pupil. No ptosis. No exophthalmos. Ear, Nose, and Throat: Oropharynx clear, mucous membranes moist. Ears and nose without deformities. Trachea midline. Respiratory: Clear to auscultation bilaterally. No wheezing, rales, or rhonchi. Cardiovascular: S1, S2 regular. No murmurs, rubs, or gallops. Gastrointestinal: Abdomen soft, non-tender, non-distended. Normal bowel sounds. Neurologic: Cranial nerves II-XII are grossly intact bilaterally. No focal neurological deficits. Moves all extremities spontaneously. Skin: No rashes or lesions noted. Musculoskeletal: No cyanosis or clubbing. Extremities: No edema. Psychiatric: Normal mood and affect. Results Labs 04/03/23 14:11 04/03/23 16:29 Labs: Laboratory Results - last 24 hr 04/03/23 04/03/23 04/03/23 14:11 14:11 14:12 MCV 86.6 MCH 28.5 MCHC 32.9 RDW 14.0 Plt Count 411 H D MPV 10.3 Immature Gran % (Auto) 0.4 Neut % (Auto) 73.3 H Lymph % (Auto) 16.4 L [place] % (Auto) 9.0 Eos % (Auto) 0.5 Baso % (Auto) 0.4 Lymph # (Auto) 1.8 [place] # (Auto) 1.0 Eos # (Auto) 0.1 Baso # (Auto) 0.0 Abs Immat Gran (auto) 0.04 H Absolute Neuts (auto) 8.0 Absolute Nucleated RBC 0.000 Nucleated RBC % (auto) 0.0 PT 10.8 INR 0.9 D-Dimer High Sensitivty 647 Anion Gap Estim Creat Clear Calc Estimated GFR Random Glucose Calcium Magnesium Total Bilirubin Direct Bilirubin AST ALT Alkaline Phosphatase Troponin I High Sens B-Natriuretic Peptide < 10 Total Protein Albumin Urine Color Urine Appearance Urine pH Ur Specific [place] Urine Protein Urine Glucose (UA) Urine Ketones Urine Blood Urine Nitrite Ur Leukocyte Esterase Urine RBC Urine WBC Ur Squamous Epith Cells Calcium Oxalate Crystal Urine Bacteria Hyaline Casts 04/03/23 04/03/23 04/03/23 14:12 14:23 16:29 MCV MCH MCHC RDW Plt Count MPV Immature Gran % (Auto) Neut % (Auto) Lymph % (Auto) [place] % (Auto) Eos % (Auto) Baso % (Auto) Lymph # (Auto) [place] # (Auto) Eos # (Auto) Baso # (Auto) Abs Immat Gran (auto) Absolute Neuts (auto) Absolute Nucleated RBC Nucleated RBC % (auto) PT INR D-Dimer High Sensitivty Anion Gap 15 Estim Creat Clear Calc 86.2 Estimated GFR > 60 Random Glucose 88 Calcium 9.3 D Magnesium 2.1 Total Bilirubin 0.4 Direct Bilirubin 0.1 AST 23 ALT 21 Alkaline Phosphatase 119 H Troponin I High Sens 32.7 B-Natriuretic Peptide Total Protein 7.3 Albumin 4.0 Urine Color Dark Yellow Urine Appearance Cloudy Urine pH 6.0 Ur Specific [place] 1.020 Urine Protein 100 (2+) H Urine Glucose (UA) Negative Urine Ketones Trace Urine Blood Negative Urine Nitrite Negative Ur Leukocyte Esterase Small (1+) H Urine RBC 3-5 H Urine WBC 6-10 H Ur Squamous Epith Cells 6-10 Calcium Oxalate Crystal Present Urine Bacteria None Seen Hyaline Casts >20 04/03/23 18:46 MCV MCH MCHC RDW Plt Count MPV Immature Gran % (Auto) Neut % (Auto) Lymph % (Auto) [place] % (Auto) Eos % (Auto) Baso % (Auto) Lymph # (Auto) [place] # (Auto) Eos # (Auto) Baso # (Auto) Abs Immat Gran (auto) Absolute Neuts (auto) Absolute Nucleated RBC Nucleated RBC % (auto) PT INR D-Dimer High Sensitivty Anion Gap Estim Creat Clear Calc Estimated GFR Random Glucose Calcium Magnesium Total Bilirubin Direct Bilirubin AST ALT Alkaline Phosphatase Troponin I High Sens 68.0 H D B-Natriuretic Peptide Total Protein Albumin Urine Color Urine Appearance Urine pH Ur Specific [place] Urine Protein Urine Glucose (UA) Urine Ketones Urine Blood Urine Nitrite Ur Leukocyte Esterase Urine RBC Urine WBC Ur Squamous Epith Cells Calcium Oxalate Crystal Urine Bacteria Hyaline Casts Imaging Radiologist's Impressions: Impressions Chest X-Ray 04/03/23 14:05 IMPRESSION: Unremarkable chest examination. Head CT 04/03/23 14:51 IMPRESSION: Unremarkable non-contrast CT of the brain. Chest CTA 04/03/23 17:48 IMPRESSION: Normal CT of chest. No evidence of pulmonary embolism. VTE: negative. Assessment and Plan (1) Acute coronary syndrome: Status: Acute Plan Pt is a 57-year-old male with a PMH significant for asthma/COPD overlap syndrome, HTN, vertigo, CHILO noncompliant with CPAP, GERD, osteoarthritis of the left hip s/p left THR on 02/09/2023, and hx of opiate abuse on methadone who presents to the ED with?chest pressure/SOB, dizziness, nausea, and diaphoresis. Patient states that he was mowing his lawn with a self-propelled lawnmower when he suddenly became dizzy, sweaty, nauseous, and felt like he could not breathe. Pt will be placed on heparin drip and admitted to the hospital for treatment and further evaluation of ACS. ACS Pt with chest pressure/SOB, nausea, diaphoresis, elevated troponin EKG showed normal sinus rhythm without evidence of ST elevations or depressions Patient will be placed on heparin drip, per Cardiology Continue home aspirin and statin Lipid profile Repeat troponin in 3 hours Cardiology consult Monitor on telemetry Right eye bulging and eyelid drooping Pt is set to f/u outpatient with PCP next week Opiate dependence Continue methadone HTN Well-controlled, continue home meds Asthma/COPD overlap syndrome Not in acute exacerbation Continue home inhalers Vertigo Continue meclizine GERD Continue omeprazole Full Code Attending:?Dr. Pak DVT Prophylaxis: On heparin drip Pt will be placed on a heparin drip and require a hospitalization of at least two nights for treatment and further evaluation of acute coronary syndrome. Time Spent With Patient Time: Total time managing care of this patient today ____ minutes. Quality Stroke Does the patient have a stroke diagnosis?: No VTE Prior VTE?: No VTE Risk Level:: Medical - moderate - high VTE Device Contraindication: Treatment Not Indicated VTE Drug Contraindication: N/A - Med Ordered
[2023-04-03 21:13] LABS: Prothrombin Time 11.1 SEC (10.0-13.1)
[2023-04-03 21:16] LABS: PTT Heparin Drip 33.3 SEC (53-77.9)
[2023-04-03 21:23] LABS: Troponin-I High Sensitivity 67.4 ng/L (<3.5-35.0)
[2023-04-03] MEDS: Heparin Sodium,Porcine 5,000 UNIT/ML VIAL 8500 UNIT IVPUSH (21:28)
[2023-04-03] MEDS: Heparin Sodium,Porcine/1/2NS 25,000 UNIT/250 ML IV.SOLN 15.09 UNIT IVCONT (21:43)
--- NOTE | 2023-04-04 02:43 | PC.NURSE ---
Patient alert and oriented. Reports no pain currently. Report provided to [facility]. Patient transported to ED Overflow.
[2023-04-04 04:14] LABS: Hematocrit 39.2 % (42.0-52.0); Hemoglobin 12.8 g/dl (14.0-18.0); Mean Corpuscular HGB Conc 32.7 g/dl (31.0-36.0); Mean Corpuscular Hemoglobin 28.4 pg (27.0-33.0); Mean Corpuscular Volume 86.9 fL (80.0-98.0); Mean Platelet Volume 9.6 fL (9.4-12.4); Platelet Count 342 X10*3/uL (160-400); Red Blood Count 4.51 X10*6/uL (4.60-5.80); White Blood Count 7.1 X10*3/uL (4.8-10.8)
[2023-04-04 04:34] LABS: PTT Heparin Drip > 200.0 SEC (53-77.9)
--- NOTE | 2023-04-04 04:47 | PC.NURSE ---
Lab called with critical PTT HD >200. Dr. Pak notified. Heparin placed on hold. Repeat PTT HD scheduled at 04:35 am per protocol. No s/s of active bleeding noted at present.
[2023-04-04 05:01] LABS: Cholesterol 149 mg/dL; HDL Cholesterol 43 mg/dL; LDL Cholesterol Calculated 96 mg/dl; Triglycerides 51 mg/dL
[2023-04-04 05:12] VITALS: BP 130/76; PULSE 50; RESP 16; TEMP 36.7; O2SAT 96
--- NOTE | 2023-04-04 05:13 | MHC.EDTECH ---
i took over this assignment at 3am , vitals were taken and entered
[2023-04-04 05:43] LABS: PTT Heparin Drip 92.4 SEC (53-77.9)
--- NOTE | 2023-04-04 09:45 | PHA.MEDREC ---
Pharmacy Consult ? Medication Reconciliation Pharmacy has completed the medication reconciliation. Spoke to to confirm meds. States patient is on methadone 60mg daily and goes to [facility].
[2023-04-04] MEDS: LORazepam 0.5 MG TABLET PO (10:12)
--- NOTE | 2023-04-04 10:14 | MHC.CM.PN ---
EMR REVIEWED, PT ADMITTED W/CHEST PRESSURE, PER HOSPITLALIST PT MAY NEED TO TXFR TO [facility] [place]. CM MET W/PT WHO IS A&O, PT REPORTS HE LIVES WITH , IS INDEP W/ALL CARE, DENIES USE OF DME AND HAS [facility] FOR METHADONE MAINT 60MG PER PT. PT VERIFIES PCP IS DANIEL EDWARD, DENIES HAVING COVID VAX AND WOULD LIKE TO COMPLETE A HCP PRIOR TO D/C.
--- NOTE | 2023-04-04 10:16 | PC.NURSE ---
patient alert, oriented x4. able to make needs known. denies chest pain at this time. heparin drip infusing per protocol. NSR on the monitor. call jimenez placed within reach. will CTM
--- NOTE | 2023-04-04 10:39 | PC.NURSE ---
cardiology at the bedside
--- NOTE | 2023-04-04 10:44 | HE.PHANOTE ---
Methadone dose was verified per Dr. Perez. Patient spouse provided bottle from clinic with dose and it was recently filled at clinic.
--- NOTE | 2023-04-04 10:56 | P.CONCA_ITS ---
History of Present Illness History of Present Illness Date of Service: 04/04/23 Requesting physician: Noelle Pak Consult reason: other (Acute coronary syndrome) Chief complaint: chest pressure Narrative: Patient is 57-year-old male with prior history of COPD due to smoking smokes about a pack a day obstructive sleep apnea, hypertension, hyperlipidemia. Was in usual state of health yesterday. He was not feeling well is moving. One of his friend given something to stay if any did that and following that he was mowing his lawn got severe chest pressure radiating to his neck associated with shortness of breath. He then stop more Ng went inside the house drank some water chest pressure subsequently subsided about 20-30 minutes later pace started feeling dizzy. He then went out to more again any continued to feel dizzy and short of breath and diaphoretic. He then stop doing his exertional activity and he continued to remain diaphoretic and continue to have shortness of breath with activity and therefore decided to come to emergency room. In the emergency room with EKG did not show any significant ischemic changes. His 1st troponin was within normal limits. However 2nd troponin was elevated in the 60 range with more than 50% delta. He has remained chest pain-free. He was started on IV heparin and has received aspirin and statins. His LDL recorded is 93. He has no recent exertional chest pain. He has never had these symptoms in the past. Review of Systems Constitutional: Constitutional: Reports no additional constitutional complaints ENT: Reports system reviewed and no additional complaints, except as documented Cardiovascular: Cardiovascular: Reports chest pain with activity, Reports diaphoresis, Denies syncope, Reports lightheadedness, Denies palpitations, Reports dyspnea and Reports dyspnea on exertion Respiratory: Respiratory: Reports no additional respiratory complaints, Reports dyspnea and Reports dyspnea on exertion Gastrointestinal: Gastrointestinal: Reports no additional gastrointestinal complaints Neurologic: Denies syncope Endocrine: Endocrine: Denies palpitations [facility] Past Medical History Medical History Arthritis Asthma COPD (chronic obstructive pulmonary disease) GERD (gastroesophageal reflux disease) History of depression History of drug abuse History of kidney stones Hx of hepatitis Hypertension Methadone use Osteoarthritis of left knee Primary osteoarthritis of left hip Sleep apnea Family History Family History Father No problems noted. Mother No problems noted. Surgical History Surgical History History of laryngoscopy History of toe surgery Hx of colonoscopy Social History Social History Household Members: Family Housing: Apartment Are you a primary director of home care hospice to a significant other at home: No Do you presently have visiting nurse or other home services: No Alcohol intake: never Patient Tobacco Use Status: Current everyday Tobacco user Tobacco use type: Cigarette Cigarette Packs Per Day: 0.5 Cigarettes Per Day: 10.0 Years Smoked: 30 Smoked in Last 30 Days: No Second Hand Smoke Exposure: No Use of substances other than those prescribed or required for medical reasons: No Advance Directives: No Advance Directives Information Provided: Yes Nutrition Risks: No Nutritional Risk service: No Current occupational status: unemployed Current occupation: Right Handed Meds Allergies Allergy/AdvReac Type Severity Reaction Status Date / Time No Known Allergies Allergy Verified 04/03/23 13:38 Active Medications: Current Medications Atorvastatin Calcium (Atorvastatin Calcium 80 Mg Tablet) 80 mg PO DAILY [facility] Bupropion HCl (Bupropion Hcl Xl 150 Mg Tab.Er.24h) 150 mg PO DAILY [facility] Docusate Sodium (Docusate Sodium 100 Mg Capsule) 100 mg PO BID [facility] Heparin Sodium (Porcine) (Heparin Sodium,Porcine 5,000 Unit/Ml Vial) 4,300 unit 40 unit/kg (4300 unit) IVPUSH PROTOCOL BOLUS PRN; Protocol PRN Reason: 40 unit/kg - Heparin Protocol Heparin Sodium (Porcine) (Heparin Sodium,Porcine 5,000 Unit/Ml Vial) 8,600 unit 80 unit/kg (8600 unit) IVPUSH PROTOCOL BOLUS PRN; Protocol PRN Reason: 80 unit/kg - Heparin Protocol Heparin Sodium/Sodium Chloride (Heparin Sodium,Porcine/1/2ns) 25,000 unit in 250 mls @ 0 mls/hr IVCONT .Q0M [facility]; Protocol Last Titration: 04/04/23 05:58 Dose: 10 units/kg/hr, 10.78 mls/hr Loratadine (Loratadine 10 Mg Tablet) 10 mg PO DAILY [facility] Lorazepam (Lorazepam 0.5 Mg Tablet) 0.5 mg PO Q4H PRN PRN Reason: Anxiety Last Admin: 04/04/23 10:12 Dose: 0.5 mg Methadone HCl (Methadone Hcl 20 Mg/2 Ml Oral.Conc) 60 mg PO DAILY [facility] Nitroglycerin (Nitroglycerin 2 % Oint 1 Gm Packet) 1 inch TRANSDERMA ONCE ONE Stop: 04/04/23 10:50 Non-Formulary Medication (Chlorthalidone) 1 tab PO DAILY [facility] Non-Formulary Medication (Umeclidinium-Vilanterol [Anoro Ellipta]) 1 inhalation INHALE DAILY [facility] Nortriptyline HCl (Nortriptyline Hcl 10 Mg Capsule) 10 mg PO BEDTIME [facility] Omeprazole (Omeprazole 20 Mg Capsule.Dr) 20 mg PO DAILY@0630 [facility] Ondansetron HCl (Ondansetron Hcl 4 Mg/2 Ml Vial) 4 mg IVPUSH Q8H PRN PRN Reason: Nausea and Vomiting Oxycodone HCl (Oxycodone Hcl Immed Release 5 Mg Tablet) 5 mg PO Q12H PRN PRN Reason: Pain, Moderate (Pain Scale 4-6 Pharmacy Consult (Consult Rx Perform Med Rec) 1 each MISCELLANE ONCE PRN PRN Reason: Consult order Sodium Chloride (0.9 % Sodium Chloride Flush 3 Ml Syringe) 3 ml IVFLUSH QSHIFT [facility] Last Admin: 04/04/23 08:14 Dose: Not Given Vitamin D (Cholecalciferol (Vitamin D3) 25 Mcg Tablet) 50 mcg PO DAILY [facility] Home Medications Medication Instructions Recorded Confirmed Last Taken Type bupropion HCl 150 mg 24 hr tablet, 150 mg PO DAILY 05/04/22 04/04/23 04/03/23 History extended release cetirizine 10 mg tablet 1 tab PO DAILY 01/26/23 04/04/23 04/03/23 History chlorthalidone 25 mg tablet 1 tab PO DAILY 01/26/23 04/04/23 04/03/23 History nortriptyline 10 mg capsule 1 cap PO BEDTIME 01/26/23 04/04/23 04/03/23 History atorvastatin 40 mg tablet 40 mg PO DAILY 04/04/23 04/04/23 04/03/23 History cholecalciferol (vitamin D3) 50 50 mcg PO DAILY 04/04/23 04/04/23 04/03/23 History mcg (2,000 unit) tablet (Vitamin D3) docusate sodium 100 mg capsule 100 mg PO BID 0504/04/23 04/03/23 History melatonin 5 mg tablet 5 mg PO BEDTIME 04/04/23 04/04/23 04/03/23 History methadone 10 mg/mL oral concentrate 60 mg PO DAILY 04/04/23 04/03/23 History omeprazole 20 mg capsule,delayed 20 mg PO DAILY@0630 04/04/23 04/04/23 04/03/23 History release Physical Exam Vital Signs: Vital Signs: Last Vital Signs Temp 98.0 F 04/04/23 05:12 Pulse 50 04/04/23 05:12 Resp 16 04/04/23 05:12 BP 130/76 04/04/23 05:12 Pulse Ox 96 04/04/23 05:12 O2 Del Method Room Air 04/03/23 18:00 BMI result Body Mass Index 33.1 Const: General: cooperative, comfortable, well developed, alert, awake and Physically active Nutritional Appearance: overweight Orientation/consciousness: patient oriented x3 Limitations: no limitations HEENT: Head: Yes normocephalic and Yes atraumatic Neck: Neck: Yes trachea midline, Yes supple and Yes no JVD Resp: Effort & Inspection: normal respiratory effort Auscultation: clear to auscultation bilaterally Cardio: Jugular venous distension: no JVD Palpation: normal PMI Rate: bradycardic Rhythm: regular rhythm Heart sounds: S1 normal heart sound present, S2 normal heart sound present, no click, no gallops, no murmurs and no rubs GI: Auscultation: normal bowel sounds Skin: General skin exam: no rashes or lesions noted Neuro: General: patient oriented x3 and no focal motor deficits Extrem: General: Yes no clubbing, cyanosis or edema Objective Labs and Meds 04/04/23 03:48 04/03/23 16:29 Lab results: Laboratory Results - last 24 hr 04/03/23 04/03/23 04/03/23 14:11 14:11 14:12 WBC 10.9 H RBC 4.91 D Hgb 14.0 D Hct 42.5 D MCV 86.6 MCH 28.5 MCHC 32.9 RDW 14.0 Plt Count 411 H D MPV 10.3 Immature Gran % (Auto) 0.4 Neut % (Auto) 73.3 H Lymph % (Auto) 16.4 L [place] % (Auto) 9.0 Eos % (Auto) 0.5 Baso % (Auto) 0.4 Lymph # (Auto) 1.8 [place] # (Auto) 1.0 Eos # (Auto) 0.1 Baso # (Auto) 0.0 Abs Immat Gran (auto) 0.04 H Absolute Neuts (auto) 8.0 Absolute Nucleated RBC 0.000 Nucleated RBC % (auto) 0.0 PT 10.8 INR 0.9 aPTT Heparin Protocol D-Dimer High Sensitivty 647 Sodium Potassium Chloride Carbon Dioxide Anion Gap BUN Creatinine Estim Creat Clear Calc Estimated GFR Random Glucose Calcium Magnesium Total Bilirubin Direct Bilirubin AST ALT Alkaline Phosphatase Troponin I High Sens B-Natriuretic Peptide < 10 Total Protein Albumin Triglycerides Cholesterol LDL Cholesterol, Calc HDL Cholesterol Urine Color Urine Appearance Urine pH Ur Specific [place] Urine Protein Urine Glucose (UA) Urine Ketones Urine Blood Urine Nitrite Ur Leukocyte Esterase Urine RBC Urine WBC Ur Squamous Epith Cells Calcium Oxalate Crystal Urine Bacteria Hyaline Casts 04/03/23 04/03/23 04/03/23 14:12 14:23 16:29 WBC RBC Hgb Hct MCV MCH MCHC RDW Plt Count MPV Immature Gran % (Auto) Neut % (Auto) Lymph % (Auto) [place] % (Auto) Eos % (Auto) Baso % (Auto) Lymph # (Auto) [place] # (Auto) Eos # (Auto) Baso # (Auto) Abs Immat Gran (auto) Absolute Neuts (auto) Absolute Nucleated RBC Nucleated RBC % (auto) PT INR aPTT Heparin Protocol D-Dimer High Sensitivty Sodium 136 Potassium 4.4 Chloride 99 Carbon Dioxide 26 Anion Gap 15 BUN 17 H Creatinine 1.16 Estim Creat Clear Calc 86.2 Estimated GFR > 60 Random Glucose 88 Calcium 9.3 D Magnesium 2.1 Total Bilirubin 0.4 Direct Bilirubin 0.1 AST 23 ALT 21 Alkaline Phosphatase 119 H Troponin I High Sens 32.7 B-Natriuretic Peptide Total Protein 7.3 Albumin 4.0 Triglycerides Cholesterol LDL Cholesterol, Calc HDL Cholesterol Urine Color Dark Yellow Urine Appearance Cloudy Urine pH 6.0 Ur Specific [place] 1.020 Urine Protein 100 (2+) H Urine Glucose (UA) Negative Urine Ketones Trace Urine Blood Negative Urine Nitrite Negative Ur Leukocyte Esterase Small (1+) H Urine RBC 3-5 H Urine WBC 6-10 H Ur Squamous Epith Cells 6-10 Calcium Oxalate Crystal Present Urine Bacteria None Seen Hyaline Casts >20 04/03/23 04/03/23 04/03/23 18:46 20:53 20:53 WBC RBC Hgb Hct MCV MCH MCHC RDW Plt Count MPV Immature Gran % (Auto) Neut % (Auto) Lymph % (Auto) [place] % (Auto) Eos % (Auto) Baso % (Auto) Lymph # (Auto) [place] # (Auto) Eos # (Auto) Baso # (Auto) Abs Immat Gran (auto) Absolute Neuts (auto) Absolute Nucleated RBC Nucleated RBC % (auto) PT 11.1 INR 1.0 aPTT Heparin Protocol 33.3 L D-Dimer High Sensitivty Sodium Potassium Chloride Carbon Dioxide Anion Gap BUN Creatinine Estim Creat Clear Calc Estimated GFR Random Glucose Calcium Magnesium Total Bilirubin Direct Bilirubin AST ALT Alkaline Phosphatase Troponin I High Sens 68.0 H D 67.4 H B-Natriuretic Peptide Total Protein Albumin Triglycerides Cholesterol LDL Cholesterol, Calc HDL Cholesterol Urine Color Urine Appearance Urine pH Ur Specific [place] Urine Protein Urine Glucose (UA) Urine Ketones Urine Blood Urine Nitrite Ur Leukocyte Esterase Urine RBC Urine WBC Ur Squamous Epith Cells Calcium Oxalate Crystal Urine Bacteria Hyaline Casts 04/04/23 04/04/23 04/04/23 03:48 03:48 03:48 WBC 7.1 RBC 4.51 L Hgb 12.8 L Hct 39.2 L MCV 86.9 MCH 28.4 MCHC 32.7 RDW 14.0 Plt Count 342 MPV 9.6 Immature Gran % (Auto) Neut % (Auto) Lymph % (Auto) [place] % (Auto) Eos % (Auto) Baso % (Auto) Lymph # (Auto) [place] # (Auto) Eos # (Auto) Baso # (Auto) Abs Immat Gran (auto) Absolute Neuts (auto) Absolute Nucleated RBC 0.000 Nucleated RBC % (auto) 0.0 PT INR aPTT Heparin Protocol > 200.0 H* D D-Dimer High Sensitivty Sodium Potassium Chloride Carbon Dioxide Anion Gap BUN Creatinine Estim Creat Clear Calc Estimated GFR Random Glucose Calcium Magnesium Total Bilirubin Direct Bilirubin AST ALT Alkaline Phosphatase Troponin I High Sens B-Natriuretic Peptide Total Protein Albumin Triglycerides 51 Cholesterol 149 LDL Cholesterol, Calc 96 HDL Cholesterol 43 Urine Color Urine Appearance Urine pH Ur Specific [place] Urine Protein Urine Glucose (UA) Urine Ketones Urine Blood Urine Nitrite Ur Leukocyte Esterase Urine RBC Urine WBC Ur Squamous Epith Cells Calcium Oxalate Crystal Urine Bacteria Hyaline Casts 04/04/23 04/04/23 03:48 05:28 WBC RBC Hgb Hct MCV MCH MCHC RDW Plt Count MPV Immature Gran % (Auto) Neut % (Auto) Lymph % (Auto) [place] % (Auto) Eos % (Auto) Baso % (Auto) Lymph # (Auto) [place] # (Auto) Eos # (Auto) Baso # (Auto) Abs Immat Gran (auto) Absolute Neuts (auto) Absolute Nucleated RBC Nucleated RBC % (auto) PT 12.0 INR 1.0 aPTT Heparin Protocol 92.4 H D D-Dimer High Sensitivty Sodium Potassium Chloride Carbon Dioxide Anion Gap BUN Creatinine Estim Creat Clear Calc Estimated GFR Random Glucose Calcium Magnesium Total Bilirubin Direct Bilirubin AST ALT Alkaline Phosphatase Troponin I High Sens B-Natriuretic Peptide Total Protein Albumin Triglycerides Cholesterol LDL Cholesterol, Calc HDL Cholesterol Urine Color Urine Appearance Urine pH Ur Specific [place] Urine Protein Urine Glucose (UA) Urine Ketones Urine Blood Urine Nitrite Ur Leukocyte Esterase Urine RBC Urine WBC Ur Squamous Epith Cells Calcium Oxalate Crystal Urine Bacteria Hyaline Casts EKG shows normal sinus rhythm with normal EKG Imaging Radiologist's impression: Impressions Chest X-Ray 04/03/23 14:05 IMPRESSION: Unremarkable chest examination. Head CT 04/03/23 14:51 IMPRESSION: Unremarkable non-contrast CT of the brain. Chest CTA 04/03/23 17:48 IMPRESSION: Normal CT of chest. No evidence of pulmonary embolism. VTE: negative. Assessment and Plan (1) Acute coronary syndrome: Status: Acute Acute coronary syndrome in this middle-aged man with multiple risk factors including smoking, hypertension, hyperlipidemia. Question he smoked cocaine although he denies it. Currently chest pain-free. His symptoms as well as troponin elevation highly consistent with acute coronary syndrome. He is advised to avoid smoking completely and avoid any drug use. He is currently on aspirin. Will changes statin to 80 mg Lipitor. Continue IV heparin. Cannot use metoprolol due to slower heart rate at rest. Nitropaste 1/2 inch q.6 hours. Patient needs cardiac catheterization due well coronary anatomy to explain his symptoms and most likely suggestive acute plaque rupture. We discussed about the process of cardiac catheterization including risk, benefits and alternatives. He will need transfer to [facility]. He is agreeable. Arrangements have been made to be transferred to [facility] which will happen later today. Will follow up with him as outpatient. Thank you for allowing me to partake in his care Time Spent With Patient Time: Total time managing care of this patient today ____ minutes. Procedures Date of Service Date of Service: 04/04/23
[2023-04-04 11:10] VITALS: BP 119/73; PULSE 56; RESP 11; TEMP 36.4; O2SAT 96
[2023-04-04] MEDS: buPROPion HCl XL 150 MG TAB.ER.24H PO (11:27)
[2023-04-04] MEDS: Omeprazole 20 MG CAPSULE.DR PO (11:27)
[2023-04-04] MEDS: Cholecalciferol (Vitamin D3) 25 MCG TABLET 50 MCG PO (11:27)
[2023-04-04] MEDS: Nitroglycerin 2 % Oint 1 GM Packet 1 INCH TRANSDERMA (11:28)
[2023-04-04 12:07] LABS: PTT Heparin Drip 69.6 SEC (53-77.9)
--- NOTE | 2023-04-04 12:07 | P.DS_ITS ---
DS: Providers Provider Date of Service: 04/04/23 Date of admission: 04/03/23 20:37 Date of discharge: 04/04/23 Primary care physician: Fabiola Perdue MD Consults: 04/03/23 20:42 Consult to Cardiology Routine Consulting Provider: [facility] Cardiovascular Services Reason for consultation: Chest pressure, diaphoresis, Nausea, elevated trops DS: Diagnosis Discharge Diagnosis (1) Acute coronary syndrome: Status: Acute DS: Summary Hospital Course Hospital Course: 57-year-old male with a PMH significant for asthma/COPD overlap syndrome, HTN, vertigo, CHILO noncompliant with CPAP, GERD,?osteoarthritis of the left hip s/p left THR on 02/09/2023,?and hx of opiate abuse on methadone who presents to the ED with?chest pressure/SOB, dizziness, nausea, and diaphoresis.? Patient states that he was mowing his lawn with a self-propelled lawnmower when he suddenly became dizzy, sweaty, nauseous, and felt like he could not breathe.? Chest pressure was located the upper center of his chest, nonradiating.? Patient went into the house, drink some water, and took a shower but was still felt short of breath and diaphoretic.? Symptoms lasted about 1/2 hour.? Patient reports he has had a couple of similar episodes in the past but none that lasted this long or prompted an emergency room visit.? Patient notes he has had palpitations in the past for which he has been seen by Cardiology with no definitive diagnosis. Pt also says he has occasionally felt his right eye bulging and having a drooping eyelid for the past few weeks. Currently not experiencing those symptoms. Has set up an outpatient appointment next week with PCP to discuss this. Patient denies vomiting, fever, chills, abdominal pain.? No headache, vision changes. Of note, patient had a negative pharmacologic stress test here in September of 2022.? Echocardiogram from 08/07/2022 showed normal left ventricular size thickness and systolic function with EF of 60-65%. Holter monitor from 08/07/2022 showed average ventricular rate of 68 beats per minute with very rare supraventricular ectopy and no sustained arrhythmias. Hospital Course Admitted to telemetry where patient has remained pain-free. Seen by Cardiology who recommends transfer to [facility] for cardiac catheterization. Continue heparin drip and other medical regimen as outlined. Further plans as per receiving team.? Time Spent with Patient Time attestation: Total time managing care of this patient today ____ minutes. Discharge coordination time: Greater than 30 minutes Quality: Safe Use of Opioids Does Pt have an Active Cancer Diagnosis on the Problem List?: No Quality: Stroke Does the patient have a stroke diagnosis?: No Physical Exam Vital Signs: Vital Signs: Last Vital Signs Temp 97.6 F 04/04/23 11:10 Pulse 56 04/04/23 11:10 Resp 11 L 04/04/23 11:10 BP 119/73 04/04/23 11:10 Pulse Ox 96 04/04/23 11:10 O2 Del Method Room Air 04/04/23 11:10 BMI result Body Mass Index 33.1 Const: Other: Awake alert oriented x3 no acute distress Neck: Other: No JVD Resp: Other: Clear to auscultation bilaterally no rales rhonchi or wheezes Cardio: Other: No S4; positive S1-S2; S3 murmurs rubs or gallops GI: Other: Soft nontender nondistended normoactive bowel sounds Neuro: Other: Cranial nerves 2-12 grossly intact as tested. Motor is 5/5 all extremities sensation is intact. Cognition appropriate Extrem: Other: No edema bilaterally DS: Data Data Completed and Pending Completed studies during hospitalization [Text1]: Procedures Replacement of Left Hip Joint with Ceramic Synthetic Substitute, Uncemented, Open Approach (02/09/23) Labs on day of discharge: Laboratory Results - last 24 hr 04/03/23 04/03/23 04/03/23 14:11 14:11 14:12 WBC 10.9 H RBC 4.91 D Hgb 14.0 D Hct 42.5 D MCV 86.6 MCH 28.5 MCHC 32.9 RDW 14.0 Plt Count 411 H D MPV 10.3 Immature Gran % (Auto) 0.4 Neut % (Auto) 73.3 H Lymph % (Auto) 16.4 L [place] % (Auto) 9.0 Eos % (Auto) 0.5 Baso % (Auto) 0.4 Lymph # (Auto) 1.8 [place] # (Auto) 1.0 Eos # (Auto) 0.1 Baso # (Auto) 0.0 Abs Immat Gran (auto) 0.04 H Absolute Neuts (auto) 8.0 Absolute Nucleated RBC 0.000 Nucleated RBC % (auto) 0.0 PT 10.8 INR 0.9 aPTT Heparin Protocol D-Dimer High Sensitivty 647 Sodium Potassium Chloride Carbon Dioxide Anion Gap BUN Creatinine Estim Creat Clear Calc Estimated GFR Random Glucose Calcium Magnesium Total Bilirubin Direct Bilirubin AST ALT Alkaline Phosphatase Troponin I High Sens B-Natriuretic Peptide < 10 Total Protein Albumin Triglycerides Cholesterol LDL Cholesterol, Calc HDL Cholesterol Urine Color Urine Appearance Urine pH Ur Specific Black Urine Protein Urine Glucose (UA) Urine Ketones Urine Blood Urine Nitrite Ur Leukocyte Esterase Urine RBC Urine WBC Ur Squamous Epith Cells Calcium Oxalate Crystal Urine Bacteria Hyaline Casts 04/03/23 04/03/23 04/03/23 14:12 14:23 16:29 WBC RBC Hgb Hct MCV MCH MCHC RDW Plt Count MPV Immature Gran % (Auto) Neut % (Auto) Lymph % (Auto) [place] % (Auto) Eos % (Auto) Baso % (Auto) Lymph # (Auto) [place] # (Auto) Eos # (Auto) Baso # (Auto) Abs Immat Gran (auto) Absolute Neuts (auto) Absolute Nucleated RBC Nucleated RBC % (auto) PT INR aPTT Heparin Protocol D-Dimer High Sensitivty Sodium 136 Potassium 4.4 Chloride 99 Carbon Dioxide 26 Anion Gap 15 BUN 17 H Creatinine 1.16 Estim Creat Clear Calc 86.2 Estimated GFR > 60 Random Glucose 88 Calcium 9.3 D Magnesium 2.1 Total Bilirubin 0.4 Direct Bilirubin 0.1 AST 23 ALT 21 Alkaline Phosphatase 119 H Troponin I High Sens 32.7 B-Natriuretic Peptide Total Protein 7.3 Albumin 4.0 Triglycerides Cholesterol LDL Cholesterol, Calc HDL Cholesterol Urine Color Dark Yellow Urine Appearance Cloudy Urine pH 6.0 Ur Specific Black 1.020 Urine Protein 100 (2+) H Urine Glucose (UA) Negative Urine Ketones Trace Urine Blood Negative Urine Nitrite Negative Ur Leukocyte Esterase Small (1+) H Urine RBC 3-5 H Urine WBC 6-10 H Ur Squamous Epith Cells 6-10 Calcium Oxalate Crystal Present Urine Bacteria None Seen Hyaline Casts >20 04/03/23 04/03/23 04/03/23 18:46 20:53 20:53 WBC RBC Hgb Hct MCV MCH MCHC RDW Plt Count MPV Immature Gran % (Auto) Neut % (Auto) Lymph % (Auto) [place] % (Auto) Eos % (Auto) Baso % (Auto) Lymph # (Auto) [place] # (Auto) Eos # (Auto) Baso # (Auto) Abs Immat Gran (auto) Absolute Neuts (auto) Absolute Nucleated RBC Nucleated RBC % (auto) PT 11.1 INR 1.0 aPTT Heparin Protocol 33.3 L D-Dimer High Sensitivty Sodium Potassium Chloride Carbon Dioxide Anion Gap BUN Creatinine Estim Creat Clear Calc Estimated GFR Random Glucose Calcium Magnesium Total Bilirubin Direct Bilirubin AST ALT Alkaline Phosphatase Troponin I High Sens 68.0 H D 67.4 H B-Natriuretic Peptide Total Protein Albumin Triglycerides Cholesterol LDL Cholesterol, Calc HDL Cholesterol Urine Color Urine Appearance Urine pH Ur Specific Black Urine Protein Urine Glucose (UA) Urine Ketones Urine Blood Urine Nitrite Ur Leukocyte Esterase Urine RBC Urine WBC Ur Squamous Epith Cells Calcium Oxalate Crystal Urine Bacteria Hyaline Casts 04/04/23 04/04/23 04/04/23 03:48 03:48 03:48 WBC 7.1 RBC 4.51 L Hgb 12.8 L Hct 39.2 L MCV 86.9 MCH 28.4 MCHC 32.7 RDW 14.0 Plt Count 342 MPV 9.6 Immature Gran % (Auto) Neut % (Auto) Lymph % (Auto) [place] % (Auto) Eos % (Auto) Baso % (Auto) Lymph # (Auto) [place] # (Auto) Eos # (Auto) Baso # (Auto) Abs Immat Gran (auto) Absolute Neuts (auto) Absolute Nucleated RBC 0.000 Nucleated RBC % (auto) 0.0 PT INR aPTT Heparin Protocol > 200.0 H* D D-Dimer High Sensitivty Sodium Potassium Chloride Carbon Dioxide Anion Gap BUN Creatinine Estim Creat Clear Calc Estimated GFR Random Glucose Calcium Magnesium Total Bilirubin Direct Bilirubin AST ALT Alkaline Phosphatase Troponin I High Sens B-Natriuretic Peptide Total Protein Albumin Triglycerides 51 Cholesterol 149 LDL Cholesterol, Calc 96 HDL Cholesterol 43 Urine Color Urine Appearance Urine pH Ur Specific Black Urine Protein Urine Glucose (UA) Urine Ketones Urine Blood Urine Nitrite Ur Leukocyte Esterase Urine RBC Urine WBC Ur Squamous Epith Cells Calcium Oxalate Crystal Urine Bacteria Hyaline Casts 04/04/23 04/04/23 03:48 05:28 WBC RBC Hgb Hct MCV MCH MCHC RDW Plt Count MPV Immature Gran % (Auto) Neut % (Auto) Lymph % (Auto) [place] % (Auto) Eos % (Auto) Baso % (Auto) Lymph # (Auto) [place] # (Auto) Eos # (Auto) Baso # (Auto) Abs Immat Gran (auto) Absolute Neuts (auto) Absolute Nucleated RBC Nucleated RBC % (auto) PT 12.0 INR 1.0 aPTT Heparin Protocol 92.4 H D D-Dimer High Sensitivty Sodium Potassium Chloride Carbon Dioxide Anion Gap BUN Creatinine Estim Creat Clear Calc Estimated GFR Random Glucose Calcium Magnesium Total Bilirubin Direct Bilirubin AST ALT Alkaline Phosphatase Troponin I High Sens B-Natriuretic Peptide Total Protein Albumin Triglycerides Cholesterol LDL Cholesterol, Calc HDL Cholesterol Urine Color Urine Appearance Urine pH Ur Specific Black Urine Protein Urine Glucose (UA) Urine Ketones Urine Blood Urine Nitrite Ur Leukocyte Esterase Urine RBC Urine WBC Ur Squamous Epith Cells Calcium Oxalate Crystal Urine Bacteria Hyaline Casts Discharge Plan Discharge Anticipated Discharge Date/Time: 04/04/23 12:03 Patient Disposition: Xfer [facility] Discharge Diagnosis: Acute coronary syndrome Referrals: Fabiola Perdue MD [Primary Care Provider] - 1 Week Discharge Medications: New atorvastatin 80 mg Tablet 80 mg PO DAILY Qty: 30 0RF lorazepam 0.5 mg Tablet 0.5 mg PO Q4H PRN (Reason: Anxiety) Qty: 30 0RF heparin (porcine) 5,000 unit/mL Solution 4,300 unit IVPUSH PROTOCOL BOLUS PRN (Reason: 40 Unit/Kg - Heparin Protocol) Qty: 10 0RF heparin (porcine) 5,000 unit/mL Solution 8,600 unit IVPUSH PROTOCOL BOLUS PRN (Reason: 80 Unit/Kg - Heparin Protocol) Qty: 10 0RF heparin(porcine) in 0.45% NaCl 25,000 unit/250 mL Parenteral Solution 25,000 unit continuous IV infusion .Q0M Qty: 10 0RF Continued Anoro Ellipta 62.5-25 mcg/actuation blister with device 1 inh inhalation DAILY 30 Days Qty: 1 6RF oxycodone 5 mg tablet 5 mg PO Q12H PRN (Reason: Pain, Moderate (Pain Scale 4-6) 7 Days Qty: 14 0RF Rx Instructions: Partial Fill upon patient request. cetirizine 10 mg tablet 1 tab PO DAILY chlorthalidone 25 mg tablet 1 tab PO DAILY nortriptyline 10 mg capsule 1 cap PO BEDTIME melatonin 5 mg Tablet 5 mg PO BEDTIME docusate sodium 100 mg capsule 100 mg PO BID omeprazole 20 mg capsule,delayed release(DR/EC) 20 mg PO DAILY@0630 cholecalciferol (vitamin D3) [Vitamin D3] 50 mcg (2,000 unit) Tablet 50 mcg PO DAILY methadone 10 mg/mL Concentrate 60 mg PO DAILY bupropion HCl 150 mg tablet extended release 24 hr 150 mg PO DAILY (DME) walker Misc See Rx Instructions .MEDSUPPLY Qty: 1 0RF Rx Instructions: Folding Front wheeled walker (DME) Cane See Rx Instructions .Route .MEDSUPPLY Qty: 1 0RF Rx Instructions: As directed Discontinued atorvastatin 40 mg tablet 40 mg PO DAILY Discharge Orders: Discharge Order (Routine); Ordered 04/04/23 Ordered By: Gabriel Perez Diet: Advance to usual diet Activity on Discharge: As tolerated Stand Alone Forms: Patient Portal Discharge page Care Plan Goals: Transfer to [facility] for cardiac catheterization Health Concerns: Continue all meds as at [facility] Plan of Treatment: As per receiving facility Assessment: See discharge summary
--- NOTE | 2023-04-04 12:35 | MHC.CM.PN ---
PT COMPLETE HCP PETARIN HIS JAE DANGELO [phone] HIS [facility] AND SON [place] [phone] HIS ALTERNATE, PT RECEIVED EDUCATIONAL INFO, ORIGINAL AND 2 COPIES, COPY UPLOADED TO [facility] AND PLACED IN CHART.
--- NOTE | 2023-04-04 13:37 | MHC.CM.PN ---
pt transferring to [facility] for cardiac cath, speaking unit assembler calling Linda for transport
[2023-04-04] MEDS: Atorvastatin Calcium 80 MG TABLET PO (14:28)
[2023-04-04 14:49] VITALS: BP 144/81; PULSE 60; RESP 18; TEMP 36.6; O2SAT 96
== END 2023-04-04 16:00 | disposition short-term general hospital (02) | DRG 198 ==
LOC: HO.ED 16:50 → HO.EDOVER 20:52 → HO.IMC 04-04 11:06
PROVIDERS: Internal Medicine; Physician Assistant; Admitting Provider Student in an Organized Health Care Education/Training Program; Emergency Provider Student in an Organized Health Care Education/Training Program; PCP General Practice; Visit Provider Hospitalist
DX: I24.9 Acute ischemic heart disease, unspecified (principal); F11.20 Opioid dependence, uncomplicated; J44.9 Chronic obstructive pulmonary disease, unspecified; I10 Essential (primary) hypertension; K21.9 Gastro-esophageal reflux disease without esophagitis; Z91.199 Patient's noncompliance with other medical treatment and regimen due to unspecified reason; G47.33 Obstructive sleep apnea (adult) (pediatric); H02.401 Unspecified ptosis of right eyelid; F17.210 Nicotine dependence, cigarettes, uncomplicated; Z71.6 Tobacco abuse counseling; Z79.899 Other long term (current) drug therapy
CPT/HCPCS: 36415; 70450; 71045; 71275; 80048; 80061; 80076; 81001; 83735; 83880; 84484; 85025; 85027; 85379; 85610; 85730; 87086; 93005; 99285; J1643; Q9967

== ENCOUNTER 2023-05-10 12:12 | Outpatient (REF) | payer MEDICAID, SELFPAY ==
--- NOTE | ~2023-05-10 | XR_ITS ---
EXAMINATION: XR PELVIS CLINICAL INFORMATION: Pain. COMPARISON: Radiographs dated 03/11/2023. TECHNIQUE: AP view of the pelvis. FINDINGS: There is bony demineralization. There is an intact left hip total arthroplasty, without hardware failure or loosening noted. The right acetabular joint space is well-maintained. The right femoral head is smooth. No fracture or dislocation is seen. There is no foreign body. XR/XR pelvis 1-2V IMPRESSION: There is an intact left hip total arthroplasty, without hardware failure or loosening noted. No periprosthetic fracture is seen.
== END 2023-05-10 12:13 | disposition home or self-care (01) ==
LOC: HO.HOSX 12:12
PROVIDERS: Visit Provider Orthopaedic Surgery
DX: Z47.1 Aftercare following joint replacement surgery (principal); Z96.642 Presence of left artificial hip joint
CPT/HCPCS: 72170; 99212

== ENCOUNTER 2023-06-21 10:47 | Outpatient (REF) | payer MEDICAID, SELFPAY ==
--- NOTE | ~2023-06-21 | XR_ITS ---
EXAMINATION: XR SHOULDER, RIGHT CLINICAL INFORMATION: Pain in right shoulder. COMPARISON: None available. TECHNIQUE: AP external rotation, Grashey, scapular Y, and axillary views of the right shoulder. FINDINGS: There is mild loss of glenohumeral joint space with large right inferior humeral enthesophyte. Mild reduction in AC joint space with periarticular spurring is noted. No acute fracture, dislocation or lytic process seen. The soft tissues are normal. XR/XR shoulder RT min 2V IMPRESSION: Degenerative changes of the large inferior humeral spur at the glenohumeral joint space. Mild degeneration right AC joint as well. No acute fracture or dislocation seen.
== END 2023-06-21 10:48 | disposition home or self-care (01) ==
LOC: HO.HOSX 10:47
PROVIDERS: Visit Provider Physician Assistant
DX: M19.011 Primary osteoarthritis, right shoulder (principal)
CPT/HCPCS: 73030; 99213

== ENCOUNTER 2023-06-21 15:23 | Outpatient (AMB) | payer MEDICAID, SELFPAY ==
--- NOTE | 2023-06-21 15:17 | MHC.OFFVIS ---
Intake Vital Signs 06/21/23 15:21 Height 5 ft 11 in Weight 237 lb BMI 33.1 Intake Visit Reasons: ov- Right shoulder pain Intake Note: Amaury a 57 year old male who presents today for a follow up of right shoulder, last injection 10/16/22. Patient reports last injection provided relief for only a week. He has sharp pain that radiates into his neck that gets worse at night time. Limited ROM adn weakness in arm. Has tried PT with no relief. He is here to discuss treatment vs surgery. Allergies No Known Allergies Allergy (Verified 06/21/23 15:26) HPI ov- Right shoulder pain HPI Details 57-year-old male who returns to the office today for a follow-up of right shoulder pain. He states he has a sharp pain in his shoulder which radiates into his neck. His pain is aggravated at night. He also c/o limited ROM and weakness in his arm. He has undergone physical therapy without benefits. He had his last injection on 10/16/22 which provided him relief for only a week. [facility] Medical History Arthritis Asthma COPD (chronic obstructive pulmonary disease) GERD (gastroesophageal reflux disease) History of depression History of drug abuse History of kidney stones Hx of hepatitis Hypertension Methadone use Osteoarthritis of left knee Primary osteoarthritis of left hip Sleep apnea Surgical History History of laryngoscopy History of toe surgery Hx of colonoscopy Family History Father No problems noted. Mother No problems noted. Social History Household Members: Family Housing: Apartment Are you a primary weekend caregiver to a significant other at home: No Do you presently have visiting nurse or other home services: No Alcohol intake: never Patient Tobacco Use Status: Current someday Tobacco user Tobacco use type: Cigarette Cigarette Packs Per Day: 1 Cigarettes Per Day: 20.0 Years Smoked: 30 Second Hand Smoke Exposure: No service: No Current occupational status: unemployed Current occupation: Right Handed Review of Systems Const All systems reviewed & are unremarkable except as noted in HPI and below Physical Exam Vital Signs: BMI result Body Mass Index 33.1 Extrem Other: Right shoulder: Normal to inspection. Forward flexion to 45 degrees. Significant pain with RTC strength testing. Results Reviewed Results Reviewed: Xrays were obtained in the office today and personally reviewed by me of the right shoulder show ghj oa Assessment & Plan Assessment & Plan (1) Osteoarthritis of right shoulder: Code(s): M19.011 - Primary osteoarthritis, right shoulder Plan We discussed options which include injection and MRI imaging. An MRI of the right shoulder was ordered to further evaluate the integrity of the RTC and I did set up an injection to be performed under fluoroscopy at the hospital. Once the scan is complete, I will him see back to discuss the results and the next course of treatment. He is content with this plan. Orders: Orders XR shoulder RT min 2V Today M25.511 - Pain in right shoulder MR shoulder RT wo con Today M19.011 - Primary osteoarthritis, right shoulder FL arthrogram shoulder RT Today M19.011 - Primary osteoarthritis, right shoulder Patient Instructions: Scribed for Ivette Bonilla PA-C, by Ubaldo Yuan medical staffing coordinator, on 06/21/2023 at 3:00 PM Ivette MEYER PA-C, have personally reviewed and agree with the information entered by the scribe. Coding Level of Care Code Est Pt Level 3 (30245) Diagnoses Osteoarthritis of right shoulder M19.011
[2023-06-21 15:21] VITALS: BMI 33.1
== END 2023-06-21 15:57 | disposition home or self-care (01) ==
PROVIDERS: PCP General Practice; Visit Provider Physician Assistant
DX: M19.011 Primary osteoarthritis, right shoulder (principal)
CPT/HCPCS: 99213

== ENCOUNTER 2023-06-29 12:56 | Outpatient (REF) | payer MEDICAID, SELFPAY | END 2023-06-29 12:57 | disposition home or self-care (01) | LOC: HO.XRAY 12:56 | PROVIDERS: PCP General Practice; Visit Provider Physician Assistant | DX: Z13.89 Encounter for screening for other disorder (principal) ==

== ENCOUNTER 2023-07-12 10:32 | Outpatient (REF) | payer MEDICAID, SELFPAY ==
--- NOTE | ~2023-07-12 | FL_ITS ---
EXAMINATION: XR ARTHROGRAM SHOULDER, RIGHT CLINICAL INFORMATION: Osteoarthritis. Pain. COMPARISON: Previous x-ray May 2023 TECHNIQUE: Procedure and risks and benefits including bleeding and infection were discussed with the patient and informed consent was obtained. The right shoulder was prepped and draped in the usual sterile fashion. The skin and soft tissues were anesthetized with 1% lidocaine plain. Using fluoroscopy guidance and a 22-gauge spinal needle, access to the right shoulder joint was obtained. 1 to 2 mL of Omnipaque 300 was injected fluoroscopically confirming adequate placement in the joint space. Subsequently, a mixture of 8 mL one percent lidocaine plain and 1 mL 80 mg/mL Depo-Medrol solution was injected into the right shoulder joint. FINDINGS: Images demonstrate needle placement and contrast injection in the joint space.. FLUOROSCOPY TIME: 2.6 minutes DOSE AREA PRODUCT: 10 pearce per centimeter squared. 2 saved fluoroscopic images. FL/FL arthrogram shoulder RT IMPRESSION: Therapeutic right shoulder arthrogram.
== END 2023-07-12 10:33 | disposition home or self-care (01) ==
LOC: HO.XRAY 10:32
PROVIDERS: PCP General Practice; Visit Provider Physician Assistant
DX: M19.011 Primary osteoarthritis, right shoulder (principal)
CPT/HCPCS: 23350; 73040

== ENCOUNTER → 2023-07-12 10:33 | Outpatient (BNV) | payer MEDICAID, SELFPAY | PROVIDERS: PCP General Practice; Visit Provider Radiology Diagnostic Radiology | DX: M19.011 Primary osteoarthritis, right shoulder (principal) | CPT/HCPCS: 23350; 73040 ==

== ENCOUNTER 2023-09-14 17:29 | Emergency (ER) | payer MEDICAID, SELFPAY ==
[2023-09-14 18:09] VITALS: BP 139/73; PULSE 69; RESP 16; TEMP 36.8; O2SAT 97; BMI 31.0
--- NOTE | 2023-09-14 18:31 | ED.EYEPROB ---
HPI - Eye Problem General Chief complaint: Eye Problems Stated complaint: ?FB in R eye Time Seen by Provider: 09/14/23 19:35 Source: patient Mode of arrival: ambulatory Limitations: no limitations History of Present Illness HPI Narrative: Patient apparently cutting a branch touched his right eye complaining of pain with photosensitivity and redness of the conjunctiva Related Data Home Medications ?Medication ?Instructions ?Recorded ?Confirmed bupropion HCl 150 mg 24 hr tablet, 150 mg PO DAILY 05/04/22 04/04/23 extended release cetirizine 10 mg tablet 1 tab PO DAILY 01/26/23 04/04/23 chlorthalidone 25 mg tablet 1 tab PO DAILY 01/26/23 04/04/23 nortriptyline 10 mg capsule 1 cap PO BEDTIME 01/26/23 04/04/23 cholecalciferol (vitamin D3) 50 50 mcg PO DAILY 04/04/23 04/04/23 mcg (2,000 unit) tablet (Vitamin D3) docusate sodium 100 mg capsule 100 mg PO BID 04/04/23 04/04/23 melatonin 5 mg tablet 5 mg PO BEDTIME 04/04/23 04/04/23 methadone 10 mg/mL oral concentrate 60 mg PO DAILY 04/04/23 omeprazole 20 mg capsule,delayed 20 mg PO DAILY@0630 04/04/23 04/04/23 release Previous Rx's ?Medication ?Instructions ?Recorded umeclidinium 62.5 mcg-vilanterol 1 inh inhalation DAILY 30 days #1 06/05/22 25 mcg/actuation powdr for ea inhalation (Anoro Ellipta) walker #1 ea 02/04/23 Cane #1 ea 03/11/23 atorvastatin 80 mg tablet 80 mg PO DAILY #30 tabs 04/04/23 heparin (porcine) 25,000 unit/250 25,000 unit (250 mL) continuous IV 04/04/23 mL in 0.45 % sodium chloride IV infusion .Q0M #10 mL soln heparin (porcine) 5,000 unit/mL 4,300 unit (0.86 mL) IVPUSH 04/04/23 injection solution PROTOCOL BOLUS PRN 40 Unit/Kg - Heparin Protocol #10 mL heparin (porcine) 5,000 unit/mL 8,600 unit (1.72 mL) IVPUSH 04/04/23 injection solution PROTOCOL BOLUS PRN 80 Unit/Kg - Heparin Protocol #10 mL lorazepam 0.5 mg tablet 0.5 mg PO Q4H PRN Anxiety #30 tabs 04/04/23 oxycodone 5 mg tablet 5 mg PO DAILY PRN Pain, Moderate 04/08/23 (Pain Scale 4-6 7 days #7 tabs methylprednisolone 4 mg tablets in See Rx Instructions PO PER PKG DIR 11/15/23 a dose pack (Medrol (Pawan)) #21 ea Allergies Allergy/AdvReac Type Severity Reaction Status Date / Time No Known Allergies Allergy Verified 06/21/23 15:26 Review of Systems Review of Systems: Yes all other systems are reviewed and are negative [facility] Past Medical History Medical History Osteoarthritis of left knee Methadone use Sleep apnea History of drug abuse Arthritis GERD (gastroesophageal reflux disease) History of kidney stones Hx of hepatitis History of depression COPD (chronic obstructive pulmonary disease) Asthma Primary osteoarthritis of left hip Hypertension Surgical History History of toe surgery History of laryngoscopy Hx of colonoscopy Family History Family History Father No problems noted. Mother No problems noted. Social History Social History Household Members: Family Housing: Apartment Are you a primary lawn care technician to a significant other at home: No Do you presently have visiting nurse or other home services: No Alcohol intake: never Patient Tobacco Use Status: Current someday Tobacco user Tobacco use type: Cigarette Cigarette Packs Per Day: 1 Cigarettes Per Day: 20.0 Years Smoked: 30 Second Hand Smoke Exposure: No service: No Current occupational status: unemployed Current occupation: Right Handed Physical Exam Vital Signs: Vital Signs: Last Vital Signs Temp 98.2 F 09/14/23 18:09 Pulse 69 09/14/23 18:09 Resp 16 09/14/23 18:09 BP 139/73 09/14/23 18:09 Pulse Ox 97 09/14/23 18:09 O2 Del Method Room Air 09/14/23 18:09 BMI result Body Mass Index 31.0 Eyes: Visual Jensen: normal visual jensen by confrontation Periorbital: periorbital findings normal Conjunctivae: conjunctival abnormal right Sclerae: scleral abnormal (Subconjunctival hemorrhage) right Corneas: corneas normal and fluorescein used (Negative for abrasion) Pupils: Equal, round and reactive pupils present Direct Ophthalmoscopy: normal light reflex and anterior chamber normal Neuro: Cranial nerves: Yes Equal, round and reactive pupils present Course Course Course Narrative: This is an RME: Additional HPI, ROS, PE not included below will be deferred to primary provider. 58 yo male presents w/ right eye discomfort and fb sensation after cutting branches noted eye is red and appears like bloody. No contacts in place Will need fluoro stain Medications Administered Discontinued Medications Generic Name Dose Route Start Last Admin Trade Name Freq PRN Reason Stop Dose Admin Tetracaine HCl 3 drop 09/14/23 18:30 09/14/23 18:53 Tetracaine Hcl/Pf 0.5% Oph Sammie 4 Ml Drops EYE-BOTH 09/14/23 18:31 3 drop ONCE ONE Administration Medical Decision Making Medical Decision Making MDM Narrative: Patient with right subconjunctival hemorrhage cornea is normal fluorescin stain negative for corneal abrasion or foreign body discharge patient advised supportive treatment Discharge Plan Discharge Clinical Impression: Subconjunctival hemorrhage of right eye Patient Disposition: Home, Self-Care Instructions: Subconjunctival Hemorrhage (ED) Additional Instructions: Care as advised Likely happen because of cough If should go way in next 2 weeks slowly do not rub your eyes Prescriptions: No Action Anoro Ellipta 62.5-25 mcg/actuation blister with device 1 inh inhalation DAILY 30 Days Qty: 1 6RF oxycodone 5 mg tablet 5 mg PO DAILY PRN (Reason: Pain, Moderate (Pain Scale 4-6) 7 Days Qty: 7 0RF Rx Instructions: Partial Fill upon patient request. cetirizine 10 mg tablet 1 tab PO DAILY chlorthalidone 25 mg tablet 1 tab PO DAILY nortriptyline 10 mg capsule 1 cap PO BEDTIME melatonin 5 mg Tablet 5 mg PO BEDTIME docusate sodium 100 mg capsule 100 mg PO BID omeprazole 20 mg capsule,delayed release(DR/EC) 20 mg PO DAILY@0630 cholecalciferol (vitamin D3) [Vitamin D3] 50 mcg (2,000 unit) Tablet 50 mcg PO DAILY methadone 10 mg/mL Concentrate 60 mg PO DAILY atorvastatin 80 mg Tablet 80 mg PO DAILY Qty: 30 0RF lorazepam 0.5 mg Tablet 0.5 mg PO Q4H PRN (Reason: Anxiety) Qty: 30 0RF heparin (porcine) 5,000 unit/mL Solution 4,300 unit IVPUSH PROTOCOL BOLUS PRN (Reason: 40 Unit/Kg - Heparin Protocol) Qty: 10 0RF heparin (porcine) 5,000 unit/mL Solution 8,600 unit IVPUSH PROTOCOL BOLUS PRN (Reason: 80 Unit/Kg - Heparin Protocol) Qty: 10 0RF heparin(porcine) in 0.45% NaCl 25,000 unit/250 mL Parenteral Solution 25,000 unit continuous IV infusion .Q0M Qty: 10 0RF bupropion HCl 150 mg tablet extended release 24 hr 150 mg PO DAILY (DME) walker Misc See Rx Instructions .MEDSUPPLY Qty: 1 0RF Rx Instructions: Folding Front wheeled walker (DME) Cane See Rx Instructions .Route .MEDSUPPLY Qty: 1 0RF Rx Instructions: As directed methylprednisolone [Medrol (Pawan)] 4 mg tablets,dose pack See Rx Instructions PO PER PKG DIR Qty: 21 0RF Rx Instructions: PO PER PKG DIR Interventions: ED Discharge Assessment Last Done: 09/14/23 19:52 Discharge Date/Time: 09/14/23 19:53 Print Language: Fijian
[2023-09-14] MEDS: Tetracaine HCl/PF 0.5% Oph Sol 4 ML DROPS 3 DROP EYE-BOTH (18:53)
== END 2023-09-14 19:53 | disposition home or self-care (01) ==
PROVIDERS: Emergency Provider Internal Medicine; PCP General Practice
DX: H11.31 Conjunctival hemorrhage, right eye (principal); I10 Essential (primary) hypertension; F17.210 Nicotine dependence, cigarettes, uncomplicated; Z79.899 Other long term (current) drug therapy
CPT/HCPCS: 99282; 99283

== ENCOUNTER 2023-10-12 17:46 | Outpatient (REF) | payer MEDICAID, SELFPAY | END 2023-10-12 17:47 | disposition home or self-care (01) | LOC: HO.MRI 17:46 | PROVIDERS: PCP General Practice; Visit Provider Physician Assistant | DX: Z13.89 Encounter for screening for other disorder (principal) ==

== ENCOUNTER 2023-11-10 06:04 | Outpatient (REF) | payer MEDICAID, SELFPAY | END 2023-11-10 06:05 | disposition home or self-care (01) | LOC: HO.HOSX 06:04 | PROVIDERS: Visit Provider Physician Assistant | DX: Z13.89 Encounter for screening for other disorder (principal) ==

== ENCOUNTER 2023-11-15 12:03 | Outpatient (REF) | payer MEDICAID, SELFPAY ==
--- NOTE | ~2023-11-15 | XR_ITS ---
EXAMINATION: XR PELVIS CLINICAL INFORMATION: Pain in the hip COMPARISON: X-ray of the pelvis April 2023 TECHNIQUE: AP view of the low pelvis. FINDINGS: Left total hip arthroplasty noted with components in usual in unchanged position. No periprosthetic fracture or suspicious area of lucency. The remaining bone and joints and soft tissues are normal. XR/XR pelvis 1-2V IMPRESSION: Left total hip arthroplasty without complication by x-ray. Upper pelvis is not included in the [id number] of the exam.
== END 2023-11-15 12:04 | disposition home or self-care (01) ==
LOC: HO.HOSX 12:03
PROVIDERS: Visit Provider Orthopaedic Surgery
DX: M54.16 Radiculopathy, lumbar region (principal); M19.011 Primary osteoarthritis, right shoulder; M16.12 Unilateral primary osteoarthritis, left hip; M25.552 Pain in left hip; M25.511 Pain in right shoulder; Z96.642 Presence of left artificial hip joint
CPT/HCPCS: 72170; 99212

== ENCOUNTER 2023-11-15 14:05 | Outpatient (AMB) | payer MEDICAID, SELFPAY ==
--- NOTE | 2023-11-15 14:24 | MHC.OFFVIS ---
Intake Vital Signs 11/15/23 14:25 Height 5 ft 11 in Weight 223 lb BMI 31.1 Intake Visit Reasons: OV-LT hip pain s/p fall, DOS 02/09/23 Intake Note: Amaury is a 58 year old male who presents today for a follow up of his left hip. He actually describes long-standing buttock and thigh pain. This radiates down his leg. He has difficulty finding a comfortable position. He denies groin pain. He is not sleeping. He states the pain is unbearable but it does not feel like his hip felt. He describes numbenss and tingling. Bowel and bladder function is intact. He explains that he is also having pain in the right shoulder for about 2 weeks. He has an injection at his last visit that did not help. MRI done at [facility] scanned to chart Allergies No Known Allergies Allergy (Verified 06/21/23 15:26) HPI OV-LT hip pain s/p fall, DOS 02/09/23 HPI Details Amaury is a 58 year old man who returns with complaints of worsening left hip pain. He says while descending some stairs, he took a hard step and jammed his left leg, causing pain in his hip. He is ~9 months S/P left AARON. He also complains of worsening right shoulder pain. He found no relief from a steroid injection last year. He had an MRI done at [facility] he would like to review. COUNTS INCLUDE 234 BEDS AT THE [facility] Medical History Arthritis Asthma COPD (chronic obstructive pulmonary disease) GERD (gastroesophageal reflux disease) History of depression History of drug abuse History of kidney stones Hx of hepatitis Hypertension Methadone use Osteoarthritis of left knee Primary osteoarthritis of left hip Sleep apnea Surgical History History of laryngoscopy History of toe surgery Hx of colonoscopy Family History Father No problems noted. Mother No problems noted. Social History Household Members: Family Housing: Apartment Are you a primary medicare insurance specialist to a significant other at home: No Do you presently have visiting nurse or other home services: No Alcohol intake: never Patient Tobacco Use Status: Current someday Tobacco user Tobacco use type: Cigarette Cigarette Packs Per Day: 1 Cigarettes Per Day: 20.0 Years Smoked: 30 Second Hand Smoke Exposure: No service: No Current occupational status: unemployed Current occupation: Right Handed Review of Systems Const All systems reviewed & are unremarkable except as noted in HPI and below Physical Exam Vital Signs: BMI result Body Mass Index 31.1 Const General: no acute distress, alert and awake Orientation/consciousness: patient oriented x3 HEENT Head: Yes normocephalic and Yes atraumatic Eyes EOM: EOMs intact bilaterally Resp Effort & Inspection: normal respiratory effort and able to speak in complete sentences Cardio Jugular venous distension: no JVD Skin General skin exam: turgor normal Rashes: no rashes Neuro General: patient oriented x3 Extrem Other: No groin eva nwith hip rom. +SLR 5/5 Ps/q/h/ehl/ta/gc No clonus Right shoulder with 20 deg ER and crepitus and pain with passive motion. Active motion restricted as expected given ER Psych Appearance: grossly normal Affect: normal affect Attitude: cooperative Results Reviewed Results Reviewed: External MR report Severe GH OA as expected given plain radiographic results Assessment & Plan Assessment & Plan (1) Lumbar radiculopathy: Code(s): M54.16 - Radiculopathy, lumbar region Plan: Painful lumbar radiculopathy. He is unable to sleep and cannot find a comfortable position. He is exasperated and I discussed options. I sent a medrol dose pack to his pharmacy and describbed the side effects. An MRI of hi lumbar spine was ordered. PT ordered (2) Osteoarthritis of right shoulder: Code(s): M19.011 - Primary osteoarthritis, right shoulder Plan: Right shoulder OA that is severe. Will discuss in future but right now his primary problem is lumbar radiculopathy. Plan Scribed for Aureliano Jama MD by Miguel Hernandez, medical physics researcher, on 11/15/23 at 2:35 PM, EST. Orders: Orders PT Evaluation and Treatment 11/15/23 M54.16 - Radiculopathy, lumbar region Aureliano Jama MD XR hip LT w PEL1V 11/10/23 M25.559 - Pain in unspecified hip Ta-Katailna Bonilla PA-C XR pelvis 1-2V 11/15/23 M25.559 - Pain in unspecified hip Aureliano Jama MD MR lumbar spine wo con 11/15/23 M54.16 - Radiculopathy, lumbar region Aureliano Jama MD Medications: New methylprednisolone (Medrol (Pawan)) PO PER PKG DIR 21 ea 0RF Aureliano Jama MD Coding Level of Care Code Est Pt Level 4 (76356) Diagnoses Lumbar radiculopathy M54.16 Osteoarthritis of right shoulder M19.011
[2023-11-15 14:25] VITALS: BMI 31.1
== END 2023-11-15 15:42 | disposition home or self-care (01) ==
PROVIDERS: PCP General Practice; Visit Provider Orthopaedic Surgery
DX: M54.16 Radiculopathy, lumbar region (principal); M19.011 Primary osteoarthritis, right shoulder
CPT/HCPCS: 99214

== ENCOUNTER 2024-07-14 14:54 | Outpatient (REF) | payer MEDICAID, SELFPAY ==
[2024-07-14 16:27] LABS: Alanine Aminotransferase 9 U/L (0-40); Alkaline Phosphatase 88 U/L (39-117); Anion Gap 11 (12-20); Aspartate Amino Transferase 20 U/L (5-37); Bilirubin Total 0.3 mg/dL (0.0-1.0); Blood Urea Nitrogen 13 mg/dL (9-16); Calcium 9.2 mg/dL (8.4-10.2); Carbon Dioxide 28 mmol/L (22-29); Chloride 105 mmol/L (96-108); Cholesterol 144 mg/dL (<200); Estimated Glomerular Filt Rate > 60; Glucose Random 77 mg/dL (60-115); HDL Cholesterol 49 mg/dL (>40); LDL Cholesterol Calculated 77 mg/dL (<100); Potassium 4.3 mmol/L (3.3-5.1); Sodium 140 mmol/L (135-145); Triglycerides 91 mg/dL (<150)
[2024-07-14 16:43] LABS: Creatinine Urine 211.09 mg/dL; Microalbum/Creatinine Ratio Ur 5.2 ug/mg cr (<30)
== END 2024-07-14 14:55 | disposition home or self-care (01) ==
LOC: HO.HHCL 14:54
PROVIDERS: Visit Provider General Practice
DX: E08.49 Diabetes mellitus due to underlying condition with other diabetic neurological complication (principal)
CPT/HCPCS: 36415; 80053; 80061; 82043; 82570

== ENCOUNTER 2024-07-20 08:43 | Outpatient (AMB) | payer MEDICAID, SELFPAY ==
[2024-07-20 08:48] VITALS: BMI 26.4
--- NOTE | 2024-07-20 08:48 | A.OFFVIS_ITS ---
Vital Signs 07/20/24 08:48 Height 5 ft 11 in Weight 189 lb BMI 26.4 Intake Visit Reasons: OV osteoarthritis rt shoulder Intake Note: Amaury is a 58 year old right hand dominant male who presents today for a follow up visit for his right shoulder OA. He was last seen in October of 2023, where his primary concern was lumbar radiculopathy. Hx of Right Shoulder Arthrogram 07/12/23. Patient reports thaot this injection was helpful for a few months. He was given Tramadol, which is not helping with his symptoms. Allergies No Known Allergies Allergy (Verified 07/20/24 08:55) HPI HPI OV osteoarthritis rt shoulder: Details: Amaury is a 58 year old right hand dominant male who presents today for a follow up visit for his right shoulder OA. He was last seen in October of 2023, where his primary concern was lumbar radiculopathy. Hx of Right Shoulder injection 07/12/23. Patient reports that this injection was helpful for a few months. He was given Tramadol, which is not helping with his symptoms. [facility] Medical History Osteoarthritis of left knee Methadone use Sleep apnea History of drug abuse Arthritis GERD (gastroesophageal reflux disease) History of kidney stones Hx of hepatitis History of depression COPD (chronic obstructive pulmonary disease) Asthma Primary osteoarthritis of left hip Hypertension Surgical History History of toe surgery History of laryngoscopy Hx of colonoscopy Family History Father No problems noted. Mother No problems noted. Social History Household Members: Family Housing: Apartment Are you a primary primary care coordinator to a significant other at home: No Do you presently have visiting nurse or other home services: No Alcohol intake: never Patient Tobacco Use Status: Current someday Tobacco user Tobacco use type: Cigarette Cigarette Packs Per Day: 1 Cigarettes Per Day: 20.0 Years Smoked: 30 Second Hand Smoke Exposure: No service: No Current occupational status: unemployed Current occupation: Right Handed Physical Exam Vital Signs: BMI result Body Mass Index 26.4 Const General: no acute distress, alert and awake Orientation/consciousness: patient oriented x3 HEENT Head: Yes normocephalic and Yes atraumatic Eyes EOM: EOMs intact bilaterally Resp Effort & Inspection: normal respiratory effort and able to speak in complete sentences Cardio Jugular venous distension: no JVD Skin General skin exam: turgor normal Rashes: no rashes Neuro General: patient oriented x3 Extrem Other: Right shoulder with 20 deg ER and crepitus and pain with passive motion. Active motion restricted as expected given ER Psych Appearance: grossly normal Affect: normal affect Attitude: cooperative Office Procedures Joint Injection/Aspiration Joint Injection/Aspiration Details: Injected 1 mL of Decadron and 3 mL 1% lidocaine and 3 mL of 0.25% Marcaine. Site was prepped using aseptic technique. Patient tolerated the procedure well. 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 We discussed treatment options. We discussed surgery and the benefits and risks and alternatives. At this time he would like to wait on surgery and would like to try an injection again. I will inject his glenohumeral joint today if that is not helpful he will contact me and I will send him for a injection with fluoroscopic guidance. Coding Level of Care Code Est Pt Level 4 (04943) Diagnoses Osteoarthritis of right shoulder M19.011 CPT Codes Coding - Large joint: 12969 - Large joint ([id number])
== END 2024-07-20 09:26 | disposition home or self-care (01) ==
PROVIDERS: PCP General Practice; Visit Provider Orthopaedic Surgery
DX: M19.011 Primary osteoarthritis, right shoulder (principal)
CPT/HCPCS: 20610; 99213

== ENCOUNTER → 2024-07-20 08:43 | Outpatient (BNVA) | payer MEDICAID, SELFPAY | PROVIDERS: PCP General Practice; Visit Provider Orthopaedic Surgery | DX: M19.011 Primary osteoarthritis, right shoulder (principal) | CPT/HCPCS: 20610; 99212; J0665; J1100 ==

== ENCOUNTER 2024-08-10 21:24 | Emergency (ER) | payer MEDICAID, SELFPAY ==
--- NOTE | ~2024-08-10 | XR_ITS ---
EXAMINATION: XR SHOULDER, RIGHT CLINICAL INFORMATION: Fall COMPARISON: None available. TECHNIQUE: AP external rotation, Grashey, scapular Y, and axillary views of the right shoulder. FINDINGS: Large right inferior humeral head enthesophyte. Mild shoulder osteoarthritis. No acute fractures or dislocations. Acromioclavicular joint is intact. Soft tissue structures are within normal limits. XR/XR shoulder RT min 2V IMPRESSION: No acute fracture or dislocation of the right shoulder. Electronically signed by: Gabriel Cooper DO 08/11/2024 12:05 AM EDT
--- NOTE | ~2024-08-10 | XR_ITS ---
EXAMINATION: XR THORACIC SPINE CLINICAL INFORMATION: Fall COMPARISON: None available. TECHNIQUE: 2 views of the thoracic spine were obtained. FINDINGS: There is no fracture or bone destruction seen and the vertebral alignment is normal. There is no disc space narrowing. There is no abnormality of the paraspinal soft tissues. XR/XR thoracic spine 3V IMPRESSION: Unremarkable examination. Electronically signed by: Gabriel Cooper DO 08/11/2024 12:07 AM EDT
--- NOTE | ~2024-08-10 | CT_ITS ---
CT HEAD AND CERVICAL SPINE WITHOUT CONTRAST HISTORY: Fall, pain TECHNIQUE: Contiguous axial imaging was performed from the skull base to vertex without intravenous contrast. Sagittal and coronal reformatted images were obtained. CT images of the cervical spine were acquired without intravenous contrast. This CT examination was performed using dose optimization techniques as appropriate, variously including the following: *Automated exposure control *Adjustment of mA and/or kV according to patient size (this includes techniques or standardized protocols for targeted exams where dose is matched to indication/reason for exam; i.e. extremities or head) *Use of iterative reconstruction technique DLP: 1173 mGy-cm COMPARISON: None available. FINDINGS: CT HEAD: The ventricles and sulci are normal in size and configuration without significant volume loss or hydrocephalus. There is no abnormal attenuation within the brain parenchyma. No territorial loss of pearce-white differentiation. No acute intracranial hemorrhage or extra-axial fluid collection. No mass lesion, significant mass effect, or herniation pattern. The orbits are grossly normal. Mild to moderate patchy paranasal sinus because of thickening. No mastoid effusion. Osseous structures are intact. Left anterior supraorbital frontal scalp hematoma. CT CERVICAL SPINE: No prevertebral soft tissue swelling. The craniocervical junction is intact. Vertebral body heights are normal without acute compression fracture or traumatic posterior element subluxation. Straightening of the cervical lordosis. There is no significant spondylolisthesis. Please note that CT is insensitive for evaluating spinal canal patency without intrathecal contrast. Mild cervical spondylosis. 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 Uncovertebral and facet joint hypertrophy contribute to neural foraminal narrowing which is most pronounced and severe on the right at C3-C4, C4-C5, and to a lesser extent C5-C6. Normal appearance of the paraspinal soft tissues. Visualized lung apices are clear. Normal appearance of the thyroid gland. CT/CT cervical spine wo IV con IMPRESSION: 1. No CT evidence of acute intracranial injury. Left anterior supraorbital frontal scalp hematoma. 2. No evidence of acute traumatic injury in the cervical spine. 3. 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 Spondylosis contributes to multilevel severe right neural foraminal stenosis. Electronically signed by: Margarette Abel MD 08/10/2024 11:24 PM EDT
[2024-08-10 21:37] VITALS: BP 116/70; PULSE 67; RESP 18; TEMP 36.8; O2SAT 95; BMI 25.8
[2024-08-11 00:35] VITALS: BP 123/63; PULSE 64; RESP 18; TEMP 36.4; O2SAT 95
--- NOTE | 2024-08-11 00:41 | MHC.EDTECH ---
Hourly rounds and vitals completed,patient is resting quietly,family at bedside call jimenez in reach
--- NOTE | 2024-08-11 00:45 | ED_ITS ---
HPI - Fall General Chief Complaint: Fall Stated Complaint: fell and cut his forehead Time Seen by Provider: 08/11/24 00:33 Source: patient and family Mode of arrival: ambulatory Limitations: no limitations History of Present Illness ED Provider: Dr. Scarlet Ahumada HPI Narrative: Patient comes to the emergency room complaining of a mechanical fall. Patient states that 30 minutes very to his arrival to the ED, patient was walking outside when he fell face down trying to step over an uneven surface of the sidewalk, states his flip-flops got caught in the cement. Patient landed face forward. Patient complaining of localized facial pain in the abrasions. Denies loss of consciousness, does not take blood thinners. Patient states he has a mild headache, patient has had chronic right shoulder pain which states feels a little bit worse today after the fall. However, patient states that he is still able to move it within normal limits. Patient states that he drank only 1 beer prior to coming to the ED. Related Data Home Medications ?Medication ?Instructions ?Recorded ?Confirmed omeprazole 20 mg capsule,delayed 20 mg PO DAILY@0630 04/04/23 04/04/23 release tramadol 50 mg tablet 50 mg PO DAILY 07/20/24 Previous Rx's ?Medication ?Instructions ?Recorded umeclidinium 62.5 mcg-vilanterol 1 inh inhalation DAILY 30 days #1 06/05/22 25 mcg/actuation powdr for ea inhalation (Anoro Ellipta) walker #1 ea 02/04/23 Cane #1 ea 03/11/23 lorazepam 0.5 mg tablet 0.5 mg PO Q4H PRN Anxiety #30 tabs 04/04/23 Allergies Allergy/AdvReac Type Severity Reaction Status Date / Time No Known Allergies Allergy Verified 08/10/24 21:49 Review of Systems Review of Systems: Constitutional : No Weight loss, No Fever, No Chills, No Night Sweats, No Fatigue, No Malaise ENT/Mouth : No Hearing loss, No Ear Pain, No Nasal Congestion, No Sinus Pain, No Hoarseness, No sore throat, No Rhinorrhea, No Swallowing Difficulty Eyes: No Eye Pain, No Swelling, No Redness, No Foreign Body, No Discharge, No Vision Changes Cardiovascular : No Chest Pain, No SOB, No Dyspnea on Exertion, No Orthopnea, No Edema, No Palpitations Respiratory : No Cough, No Sputum, No Wheezing, No Smoke Exposure, No Dyspnea Gastrointestinal : No Nausea, No Vomiting, No Diarrhea, No Constipation, No abdominal Pain, No Hematochezia, No Melena Genitourinary : no irregular bleeding, No Dysuria, No Urinary Frequency, No Hematuria, No Urinary Incontinence, No Urgency, No Flank Pain, No Urinary Flow Changes, No Hesitancy Musculoskeletal : Acute on chronic right shoulder pain, No Myalgias, No Joint Swelling Skin : Complaining of abrasions to the forehead Neuro : No Weakness, No Numbness, No Paresthesias, No Loss of Consciousness, No Dizziness, No Headache Psych : No Anxiety/Panic, No Depression, No SI/HI/AH/VH, No Social Issues, Heme/Lymph: No Bruising, No Bleeding,No Lymphadenopathy Endocrine : No Polyuria, No Polydipsia, No Temperature Intolerance [facility] Past Medical History Medical History Osteoarthritis of left knee Methadone use Sleep apnea History of drug abuse Arthritis GERD (gastroesophageal reflux disease) History of kidney stones Hx of hepatitis History of depression COPD (chronic obstructive pulmonary disease) Asthma Primary osteoarthritis of left hip Hypertension Surgical History History of toe surgery History of laryngoscopy Hx of colonoscopy Family History Family History Father No problems noted. Mother No problems noted. Social History Social History Household Members: Family Housing: Apartment Are you a primary infant childcare provider to a significant other at home: No Do you presently have visiting nurse or other home services: No Alcohol intake: never Patient Tobacco Use Status: Current someday Tobacco user Tobacco use type: Cigarette Cigarette Packs Per Day: 1 Cigarettes Per Day: 20.0 Years Smoked: 30 Second Hand Smoke Exposure: No Advance Directives: Yes Advance Directives on File: Yes Advance Directives Date on File: 04/05/23 Do you have a plan to hurt others: No Plan service: No Current occupational status: unemployed Current occupation: Right Handed Physical Exam Vital Signs: Vital Signs: Last Vital Signs Temp 97.6 F 08/11/24 00:35 Pulse 64 08/11/24 00:35 Resp 18 08/11/24 00:35 BP 123/63 08/11/24 00:35 Pulse Ox 95 08/11/24 00:35 O2 Del Method Room Air 08/11/24 00:35 BMI result Body Mass Index 25.8 Const: Other: Appearance: Alert. Oriented X3. No acute distress. Patient is clinically sobe r, ambulation is normal, steady and unassisted Eyes: Pupils equal, round and reactive to light. ENT: Pharynx normal. Neck: Normal inspection. Neck supple. No lymph nodes noted. No crepitus CVS: Normal heart rate and rhythm. Pulses normal. Normal S1 and S2 Respiratory: No respiratory distress. Breath sounds normal. No Wheezing. No rales Abdomen: Soft and nontender. No rigidity. No distention. Skin: Skin warm and dry. Normal skin color. Normal skin turgor. Multiple abrasions to the forehead and face, no lacerations, no need for stitches Extremities: No lower extremity edema. No Lacerations. No Rash Neuro: Oriented X 3. No motor deficit. No sensory deficit. Moving all extremities. No slurred speech. CN 2 through 12 grossly intact. Patient able to move, abduct and adduct arms without any difficulty Psych: calm, cooperative, normal affect Medical Decision Making Medical Decision Making MDM Narrative: My interpretation of CT scan of the head and neck, no obvious acute abnormality. -x-rays of the thoracic spine and shoulder do not show any acute abnormality. -patient's wounds were cleaned, bacitracin applied. Patient feels well. Also given 1 dose of p.o. Tylenol -patient and feel comfortable being discharged home. -was ambulated in the ED, patient has a normal steady gait and patient is clinically sober. Patient is here with his , who will be driving Differential Diagnosis Differential Diagnoses: The differential diagnosis associated with the presentation includes (Laceration, contusion, concussion, cervical spine injury, intracranial bleed) Admission/Observation Consideration of admission/observation: Escalation of care including admission/observation considered (Given patient's injuries and past medical history, observation was considered) Independent Interpretation I performed an independent interpretation of an: Plain X-Ray and CT Scan Radiology Impression Discussion of test interpretation with radiology: I have reviewed the radiologist's reading. Radiologist Impression: CT HEAD: The ventricles and sulci are normal in size and configuration without significant volume loss or hydrocephalus. There is no abnormal attenuation within the brain parenchyma. No territorial loss of pearce-white differentiation. No acute intracranial hemorrhage or extra-axial fluid collection. No mass lesion, significant mass effect, or herniation pattern. The orbits are grossly normal. Mild to moderate patchy paranasal sinus because of thickening. No mastoid effusion. Osseous structures are intact. Left anterior supraorbital frontal scalp hematoma. CT CERVICAL SPINE: No prevertebral soft tissue swelling. The craniocervical junction is intact. Vertebral body heights are normal without acute compression fracture or traumatic posterior element subluxation. Straightening of the cervical lordosis. There is no significant spondylolisthesis. Please note that CT is insensitive for evaluating spinal canal patency without intrathecal contrast. Mild cervical spondylosis. 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 Uncovertebral and facet joint hypertrophy contribute to neural foraminal narrowing which is most pronounced and severe on the right at C3-C4, C4-C5, and to a lesser extent C5-C6. Normal appearance of the paraspinal soft tissues. Visualized lung apices are clear. Normal appearance of the thyroid gland. CT/CT head/brain wo IV con IMPRESSION: 1. No CT evidence of acute intracranial injury. Left anterior supraorbital frontal scalp hematoma. 2. No evidence of acute traumatic injury in the cervical spine. 3. 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 Spondylosis contributes to multilevel severe right neural foraminal stenosis. There is no fracture or bone destruction seen and the vertebral alignment is normal. There is no disc space narrowing. There is no abnormality of the paraspinal soft tissues. Large right inferior humeral head enthesophyte. Mild shoulder osteoarthritis. No acute fractures or dislocations. Acromioclavicular joint is intact. Soft tissue structures are within normal limits. Independent Historian Clinical information obtained from an independent historian. History obtained from or confirmed by: Spouse Critical Care Time Critical Care Time Critical Care Time: Yes Total Critical Care Time: 30 Attestation: I have personally provided critical care time. Time includes review of lab data, radiology results, discussion with consultants, and monitoring for potential decompensation. Intervention performed as documented. Discharge Plan Discharge Clinical Impression: Fall, Abrasion of skin, Contusion Patient Disposition: Home, Self-Care Instructions: Contusion in Adults (ED), Abrasion (ED) Additional Instructions: Please follow-up with your primary care physician tomorrow. If you have any worsening or new symptoms, please return to the emergency room or call 911 Prescriptions: No Action Anoro Ellipta 62.5-25 mcg/actuation blister with device 1 inh inhalation DAILY 30 Days Qty: 1 6RF omeprazole 20 mg capsule,delayed release(DR/EC) 20 mg PO DAILY@0630 lorazepam 0.5 mg Tablet 0.5 mg PO Q4H PRN (Reason: Anxiety) Qty: 30 0RF (DME) walker Misc See Rx Instructions .MEDSUPPLY Qty: 1 0RF Rx Instructions: Folding Front wheeled walker (DME) Cane See Rx Instructions .Route .MEDSUPPLY Qty: 1 0RF Rx Instructions: As directed tramadol 50 mg tablet 50 mg PO DAILY Print Language: South African
[2024-08-11] MEDS: Bacitracin Oint 0.9 GM PACKET 1 APPL TOPICAL (00:57)
--- NOTE | 2024-08-11 01:00 | PC.NURSE ---
oitment applied to pt abrasions on forehead nose and right wrist.
[2024-08-11 01:01] VITALS: BP 123/63; PULSE 64; RESP 18; TEMP 36.4; O2SAT 95
== END 2024-08-11 01:02 | disposition home or self-care (01) ==
PROVIDERS: Emergency Provider Emergency Medicine; PCP General Practice
DX: S00.83XA Contusion of other part of head, initial encounter (principal); S00.81XA Abrasion of other part of head, initial encounter; W10.1XXA Fall (on)(from) sidewalk curb, initial encounter; Y93.01 Activity, walking, marching and hiking; Y92.480 Sidewalk as the place of occurrence of the external cause; Y99.9 Unspecified external cause status
CPT/HCPCS: 70450; 72072; 72125; 73030; 99284

== ENCOUNTER 2024-11-24 10:01 | Emergency (ER) | payer MEDICAID, SELFPAY ==
--- NOTE | ~2024-11-24 | XR_ITS ---
EXAMINATION: XR CHEST CLINICAL INFORMATION: sob COMPARISON: None available. TECHNIQUE: Frontal view of the chest was obtained. FINDINGS: Cardiac, hilar, and mediastinal contours are normal. Mild aortic calcification. Minimal linear scarring left base. Lungs otherwise clear. No pneumothorax or effusion. Degenerative changes in both shoulder joints and throughout the spine. XR/XR chest 1V IMPRESSION: No active pulmonary disease. Electronically signed by: Alex Rodriguez MD 11/24/2024 11:24 AM [facility]
--- NOTE | 2024-11-24 10:05 | ECG_ITS ---
Test Reason : CHEST PAIN Blood Pressure : / mmHG Vent. Rate : 068 BPM Atrial Rate : 068 BPM P-R Int : 150 ms QRS Dur : 088 ms QT Int : 392 ms P-R-T Axes : 068 085 062 degrees QTc Int : 416 ms Normal sinus rhythm Normal ECG When compared with ECG of 03-APR-2023 13:46, No significant change was found Referred By: Generic ED Physician Electronically Signed By:LAM HAGAN MD
[2024-11-24 10:11] VITALS: BP 136/72; PULSE 68; RESP 20; TEMP 36.4; O2SAT 97; BMI 27.5
[2024-11-24 10:42] LABS: MANUAL DIFF FLAG NO
[2024-11-24 10:45] LABS: Basophils Percent Auto 0.6 % (0-2); Eosinophils Absolute Auto 0.1 X10*3/uL (0.0-0.4); Eosinophils Percent Auto 0.9 % (0-4); Hematocrit 38.6 % (42.0-52.0); Hemoglobin 13.1 g/dl (14.0-18.0); Imm Gran Abs Auto 0.02 X10*3/uL (0.00-0.03); Imm Gran Pct Auto 0.3 % (0.0-0.4); Lymphocytes Absolute Auto 1.6 X10*3/uL (1.2-4.9); Lymphocytes Percent Auto 23.5 % (20-40); Mean Corpuscular HGB Conc 33.9 g/dl (31.0-36.0); Mean Corpuscular Volume 88.5 fL (80.0-98.0); Mean Platelet Volume 9.1 fL (9.4-12.4); Monocytes Percent Auto 14.9 % (2-11); Neutrophils Absolute Auto 3.9 x10*3/uL (2.0-8.3); Neutrophils Percent Auto 59.8 % (45-73); Platelet Count 199 X10*3/uL (160-400); Red Blood Count 4.36 X10*6/uL (4.60-5.80); Red Cell Distribution Width 14.3 % (11.0-16.0); White Blood Count 6.6 X10*3/uL (4.8-10.8)
[2024-11-24 10:59] LABS: Anion Gap 10 (12-20); Blood Urea Nitrogen 10 mg/dL (9-16); Calcium 8.3 mg/dL (8.4-10.2); Carbon Dioxide 26 mmol/L (22-29); Chloride 102 mmol/L (96-108); Creatinine Clr Calc Pharmacy 104.5; Estimated Glomerular Filt Rate > 60; Glucose Random 100 mg/dL (60-115); Potassium 4.1 mmol/L (3.3-5.1); Sodium 134 mmol/L (135-145)
[2024-11-24 11:09] LABS: Troponin-I High Sensitivity < 2.7 ng/L (<3.5-35.0)
[2024-11-24 11:26] VITALS: BP 125/66; PULSE 58; RESP 18; TEMP 37; O2SAT 97
--- NOTE | 2024-11-24 11:29 | PC.NURSE ---
Ls Cta. no cough noted. throat WNL. awaits provider. NAD.
[2024-11-24 11:36] LABS: Influenza A PCR NEGATIVE (Negative); Influenza B PCR NEGATIVE (Negative); Resp Syncy Virus RNA Qual PCR NEGATIVE (Negative); SARS COV2 PCR INHOUSE POSITIVE (Negative)
--- NOTE | 2024-11-24 12:13 | ED_ITS ---
HPI - General Adult General Chief complaint: General Medical Stated complaint: Chest pain, fever, headache Time Seen by Provider: 11/24/24 12:12 Source: patient History of Present Illness ED Provider: Yovana HPI narrative: 59-year-old male presenting for body aches and fever. Patient's symptoms began yesterday with general unwell feeling and progressed to fevers, nausea, body aches and weakness. Patient was around a sick family member earlier in the week for [employer]. Patient has been taking Tylenol and NyQuil for symptomatic management at home. Patient denies chest pain, productive cough, vomiting. Related Data Home Medications ?Medication ?Instructions ?Recorded ?Confirmed omeprazole 20 mg capsule,delayed 20 mg PO DAILY@0630 04/04/23 04/04/23 release tramadol 50 mg tablet 50 mg PO DAILY 07/20/24 Previous Rx's ?Medication ?Instructions ?Recorded umeclidinium 62.5 mcg-vilanterol 1 inh inhalation DAILY 30 days #1 06/05/22 25 mcg/actuation powdr for ea inhalation (Anoro Ellipta) walker #1 ea 02/04/23 Cane #1 ea 03/11/23 lorazepam 0.5 mg tablet 0.5 mg PO Q4H PRN Anxiety #30 tabs 04/04/23 acetaminophen 325 mg tablet 650 mg (2 x 325 mg) PO Q6H PRN 11/24/24 (Tylenol) fever or pain #30 tabs ibuprofen 600 mg tablet 600 mg PO Q6H PRN fever or pain 4 11/24/24 days #20 tabs Allergies Allergy/AdvReac Type Severity Reaction Status Date / Time No Known Allergies Allergy Verified 11/24/24 10:16 Review of Systems 2 Review of Systems: Patient endorses weakness, headache, fevers, body aches, nausea Yes all other systems are reviewed and are negative PMFSH Past Medical History Medical History Osteoarthritis of left knee Methadone use Sleep apnea History of drug abuse Arthritis GERD (gastroesophageal reflux disease) History of kidney stones Hx of hepatitis History of depression COPD (chronic obstructive pulmonary disease) Asthma Primary osteoarthritis of left hip Hypertension Surgical History History of toe surgery History of laryngoscopy Hx of colonoscopy Family History Family History Father No problems noted. Mother No problems noted. Social History Social History Household Members: Family Housing: Apartment Are you a primary respiratory care instructor to a significant other at home: No Do you presently have visiting nurse or other home services: No Alcohol intake: never Patient Tobacco Use Status: Current someday Tobacco user Tobacco use type: Cigarette Cigarette Packs Per Day: 1 Cigarettes Per Day: 20.0 Years Smoked: 30 Smoked in Last 30 Days: Yes Second Hand Smoke Exposure: No Use of substances other than those prescribed or required for medical reasons: No Advance Directives: Yes Advance Directives on File: Yes Advance Directives Date on File: 04/05/23 service: No Current occupational status: unemployed Current occupation: Right Handed Physical Exam ED Vital Signs: Vital Signs - 24 hr 11/24/24 10:11 11/24/24 11:26 Temperature 97.5 F 98.6 F Pulse Rate 68 58 Respiratory Rate 20 18 Blood Pressure 136/72 125/66 Pulse Oximetry 97 97 Oxygen Delivery Method Room Air Room Air BMI result Body Mass Index 27.5 Well-appearing male in no acute distress Moist mucous membranes Lungs clear to auscultation bilaterally Normal S1-S2 regular rate and rhythm Abdomen is soft nontender nondistended Medical Decision Making Medical Decision Making MDM Narrative: 59-year-old male presenting for body aches, fevers, nausea and weakness I am concerned for the following; viral URI, COVID, flu, pneumonia, gastroenteritis Labs and imaging studies ordered in triage Labs notable for so H&H, no white count, electrolytes within normal limits, normal creatinine COVID positive I reviewed patient's chest x-ray and did not appreciate a large consolidation in the radiologist's impression is negative for pneumonia Patient's symptoms are likely secondary to COVID. Patient is well-appearing and does not require admission. I gave him home care and follow up instructions and return precautions. Prescription for Tylenol and ibuprofen sent to his pharmacy Lab Data 11/24/24 10:36 11/24/24 10:36 Labs: Lab Results 11/24/24 11/24/24 Range/Units 10:36 12:43 WBC 6.6 (4.8-10.8) X10*3/uL RBC 4.36 L (4.60-5.80) X10*6/uL Hgb 13.1 L (14.0-18.0) g/dl Hct 38.6 L (42.0-52.0) % MCV 88.5 (80.0-98.0) fL MCH 30.0 (27.0-33.0) pg MCHC 33.9 (31.0-36.0) g/dl RDW 14.3 (11.0-16.0) % Plt Count 199 D (160-400) X10*3/uL MPV 9.1 L (9.4-12.4) fL Immature Gran % (Auto) 0.3 (0.0-0.4) % Neut % (Auto) 59.8 (45-73) % Lymph % (Auto) 23.5 (20-40) % [place] % (Auto) 14.9 H (2-11) % Eos % (Auto) 0.9 (0-4) % Baso % (Auto) 0.6 (0-2) % Lymph # (Auto) 1.6 (1.2-4.9) X10*3/uL [place] # (Auto) 1.0 (0.1-1.2) X10*3/uL Eos # (Auto) 0.1 (0.0-0.4) X10*3/uL Baso # (Auto) 0.0 (0.0-0.2) X10*3/uL Abs Immat Gran (auto) 0.02 (0.00-0.03) X10*3/uL Absolute Neuts (auto) 3.9 (2.0-8.3) x10*3/uL Absolute Nucleated RBC 0.000 (0.0-0.012) X10*3/uL Nucleated RBC % (auto) 0.0 (0.0-0.2) /100WBC Sodium 134 L (135-145) mmol/L Potassium 4.1 (3.3-5.1) mmol/L Chloride 102 (96-108) mmol/L Carbon Dioxide 26 (22-29) mmol/L Anion Gap 10 L (12-20) BUN 10 (9-16) mg/dL Creatinine 0.80 (0.5-1.4) mg/dL Estim Creat Clear Calc 104.5 Estimated GFR > 60 Random Glucose 100 (60-115) mg/dL Calcium 8.3 L D (8.4-10.2) mg/dL Troponin I High Sens < 2.7 D < 2.7 (<3.5-35.0) ng/L Influenza Type A (PCR) NEGATIVE (Negative) Influenza Type B (PCR) NEGATIVE (Negative) RSV RNA Qual (PCR) NEGATIVE (Negative) SARS-CoV-2 RNA (RT-PCR) POSITIVE A (Negative) Discharge Plan Discharge Clinical Impression: COVID Patient Disposition: Home, Self-Care Instructions: COVID-19 (Coronavirus Disease 2019) (ED) Additional Instructions: Please follow up with your primary care provider next 24-48 hours for reassessment. If you develop any new or worsening symptoms please return to the emergency department Prescriptions: New acetaminophen [Tylenol] 325 mg tablet 650 mg PO Q6H PRN (Reason: fever or pain) Qty: 30 0RF ibuprofen 600 mg tablet 600 mg PO Q6H PRN (Reason: fever or pain) 4 Days Qty: 20 0RF No Action Anoro Ellipta 62.5-25 mcg/actuation blister with device 1 inh inhalation DAILY 30 Days Qty: 1 6RF omeprazole 20 mg capsule,delayed release(DR/EC) 20 mg PO DAILY@0630 lorazepam 0.5 mg Tablet 0.5 mg PO Q4H PRN (Reason: Anxiety) Qty: 30 0RF (DME) walker Misc See Rx Instructions .MEDSUPPLY Qty: 1 0RF Rx Instructions: Folding Front wheeled walker (DME) Cane See Rx Instructions .Route .MEDSUPPLY Qty: 1 0RF Rx Instructions: As directed tramadol 50 mg tablet 50 mg PO DAILY Stand Alone Forms: Work/School Release Print Language: Gabonese
[2024-11-24 13:13] LABS: Troponin-I High Sensitivity < 2.7 ng/L (<3.5-35.0)
[2024-11-24] MEDS: Ibuprofen 600 MG TABLET PO (13:35)
[2024-11-24 14:07] VITALS: BP 125/66; PULSE 58; RESP 18; TEMP 37; O2SAT 97
== END 2024-11-24 14:07 | disposition home or self-care (01) ==
PROVIDERS: Emergency Provider Student in an Organized Health Care Education/Training Program; PCP General Practice
DX: U07.1 COVID-19 (principal); R07.89 Other chest pain; R50.9 Fever, unspecified; R51.9 Headache, unspecified; M79.10 Myalgia, unspecified site; R11.0 Nausea; Z79.899 Other long term (current) drug therapy; F17.210 Nicotine dependence, cigarettes, uncomplicated
CPT/HCPCS: 0241U; 36415; 71045; 80048; 84484; 85025; 93005; 99283; 99285

== ENCOUNTER → 2024-11-24 10:05 | Outpatient (BNV) | payer MEDICAID, SELFPAY | PROVIDERS: Emergency Provider Student in an Organized Health Care Education/Training Program; PCP General Practice; Visit Provider Internal Medicine Cardiovascular Disease | DX: R07.9 Chest pain, unspecified (principal) | CPT/HCPCS: 93010 ==

== ENCOUNTER → 2024-11-24 10:17 | Outpatient (BNV) | payer MEDICAID, SELFPAY | PROVIDERS: PCP General Practice; Visit Provider Radiology Diagnostic Radiology | DX: R06.02 Shortness of breath (principal) | CPT/HCPCS: 71045 ==

== ENCOUNTER 2025-05-07 10:43 | Outpatient (AMB) | payer MEDICAID, SELFPAY ==
[2025-05-07 10:48] VITALS: BMI 27.3
--- NOTE | 2025-05-07 10:48 | MHC.OFFVIS ---
Vital Signs 05/07/25 10:48 Height 5 ft 11 in Weight 196 lb BMI 27.3 Intake Visit Reasons: OV - Right Shoulder OA - Discuss Surgery Intake Note: Amaury is a 59 year old right hand dominant male who presents today for a follow up of his Right Shoulder OA. At his last visit on 07/20/24 the right shoulder was injected and it was discusses that if the injection was not helpful we would order a Injection with Flouro guidance. Patient states he no longer wants to get injection and would like to discuss surgical intervention. Allergies No Known Allergies Allergy (Verified 05/07/25 10:51) HPI HPI OV - Right Shoulder OA - Discuss Surgery: Details: Amaury is a 59 year old right hand dominant male who presents today for a follow up of his Right Shoulder OA. At his last visit on 07/20/24 the right shoulder was injected and it was discussed that if the injection was not helpful we would order a Injection with Flouro guidance. Patient states he no longer wants to get injection and would like to discuss surgical intervention. He has been having pain for years now. He is most frustrated by his loss of motion. 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 He is 59 years old and would like to be able to get through his day without discomfort. He would also like to be able to get his hand to the back of his head. [facility] Medical History Osteoarthritis of left knee Methadone use Sleep apnea History of drug abuse Arthritis GERD (gastroesophageal reflux disease) History of kidney stones Hx of hepatitis History of depression COPD (chronic obstructive pulmonary disease) Asthma Primary osteoarthritis of left hip Hypertension Surgical History History of toe surgery History of laryngoscopy Hx of colonoscopy Family History Father No problems noted. Mother No problems noted. Social History Household Members: Family Housing: Apartment Are you a primary animal care giver to a significant other at home: No Do you presently have visiting nurse or other home services: No Alcohol intake: never Patient Tobacco Use Status: Current someday Tobacco user Tobacco use type: Cigarette Cigarette Packs Per Day: 1 Cigarettes Per Day: 20.0 Years Smoked: 30 Second Hand Smoke Exposure: No Advance Directives Date on File: 04/05/23 service: No Current occupational status: unemployed Current occupation: Right Handed Physical Exam Vital Signs: BMI result Body Mass Index 27.3 Const General: no acute distress, alert and awake Orientation/consciousness: patient oriented x3 HEENT Head: Yes normocephalic and Yes atraumatic Eyes EOM: EOMs intact bilaterally Resp Effort & Inspection: normal respiratory effort and able to speak in complete sentences Cardio Jugular venous distension: no JVD Skin General skin exam: turgor normal Rashes: no rashes Neuro General: patient oriented x3 Extrem Other: Right shoulder with 20 deg ER and crepitus and pain with passive motion. Active motion restricted as expected given ER Psych Appearance: grossly normal Affect: normal affect Attitude: cooperative Results Reviewed Results Reviewed: Right shoulder glenohumeral osteoarthritis, moderate to severe Assessment & Plan Assessment & Plan (1) Osteoarthritis of right shoulder: Code(s): M19.011 - Primary osteoarthritis, right shoulder Category: Medical Plan: 59-year-old gentleman with osteoarthritis of the right shoulder. His motion is severely limited and I recommend shoulder arthroplasty. This is been going on for decades. He has had injections and physical therapy and takes NSAIDs as needed but nothing seems to help. I discussed with him details of surgery including, but not limited to the risk of infection, dislocation, fracture, stiffness as well as the potential for aseptic loosening and the postoperative limitations such as no heavy lifting and occasional restriction of overhead motion. It is unclear when he was last able to fully abduct his arm as his external rotation is mechanically limited. I discussed this with him and he expressed understanding. We will order a CT and MRI for preoperative planning Coding Level of Care Code Est Pt Level 4 (93226) Diagnoses Osteoarthritis of right shoulder M19.011
--- OUTSIDE RECORDS SUMMARY | 2025-05-07 12:03 | XMS_ITS | Encounter Summary ---
Author Organization [employer] Address 75 [facility] 7t [place] [address] Care Team Providers Care Television Maintenance Man Name Role Phone Fabiola Perdue MD Primary Care Provider [phone] Reason for Visit * Reason Comments Med Refill Encounter Details Date Type Department Care Team ([facility] st Contact Info) Description 02/05/2025 Refill [facility] MED[facility]INE [address] [place], [place] [phone] Fabiola Perdue MD 230 [place], [place] [phone] Soft tissue lesion of shoulder region Social History Tobacco Use Types Packs/Day Years Used Date Smoking Tobacco: Every Day Cigarettes Passive Smoke Exposure: Current Smokeless Tobacco: Never Alcohol Use Standard Drinks/Week Comments Never 0 (1 standard drink = 0.6 oz pur e alcohol) Depression Answer Date Recorded Patient Health Questionnaire-9 Score 0 07/14/2024 Patient Health Questionnaire-9 Score 0 07/14/2024 Last PHQ-9: Questionnaire Data Not on file 0 07/14/2024 Housing Stability Answer Date Recorded What is your housing situation today? I have xindio barrera 07/14/[address] you li ve. Do you have problems with any of the following? None of the above 07/14/2024 Food Insecurity Answer Date Recorded Within the past 12 months, y ou worried that your food would run out before you got money to buy more: Never True 07/14/2024 Within the past 12 months,th e food you bought just didn't last and you didn't have enough money to get more: Never True Transportation Answer Date Recorded In the past 12 months, has l ack of transportation kept you from medical appts, meetings, work or from getting things needed for daily living? No 07/14/2024 Utilities Answer Date Recorded In the past 12 months, has t he electric, gas, oil or water company threatened to shut off services in your home? No 07/14/2024 Depression Answer Date Recorded Patient Health Questionnaire-2 Score 0 07/14/2024 Internet Access Answer Date Recorded Internet Access Q1 Yes 07/31/2024 Internet Access Q2 Not on file 07/31/2024 Sex and Gender Information Value Date Recorded Sex Assigned at Male 09/28/2022 10:16 AM EDT Legal Sex Male 10:16 AM EDT Gender Identity Male 09/28/2022 10:16 AM EDT Sexual Orientation Straight 09/28/2022 10 :16 AM EDT documented as of this encounter Plan of Treatment Not on file documented as of this encounter Visit Diagnoses Diagnosis Soft tissue lesion of shoulder region documented in this encounter Additional Health Concerns Assessment Noted Time PHQ-9 Depression Total Score: 0 07/14/20 24 2:09 PM EDT documented as of this encounter Care Teams Television Maintenance Man Relationship Specialty Start Date End Date Fabiola Perdue MD [address] [place] [phone] PCP - General Family Medicine 12/17/22 documented as of this encounter
== END 2025-05-07 11:09 | disposition home or self-care (01) ==
LOC: HO.HOS 10:43
PROVIDERS: PCP General Practice; Visit Provider Orthopaedic Surgery
DX: M19.011 Primary osteoarthritis, right shoulder (principal)
CPT/HCPCS: 99214

== ENCOUNTER → 2025-05-07 10:43 | Outpatient (BNVA) | payer MEDICAID, SELFPAY | PROVIDERS: PCP General Practice; Visit Provider Orthopaedic Surgery | DX: M19.011 Primary osteoarthritis, right shoulder (principal) | CPT/HCPCS: 99212 ==

== ENCOUNTER 2025-05-16 11:29 | Outpatient (REF) | payer MEDICAID, SELFPAY ==
--- OUTSIDE RECORDS SUMMARY | 2025-05-16 13:28 | XMS_ITS | Encounter Summary ---
Author Organization [employer] Address 75 [facility] 7t [place] [address] Care Team Providers Care Grocery Stock Clerk Name Role Phone Fabiola Perdue MD Primary Care Provider [phone] Reason for Visit * Reason Comments Med Refill Encounter Details Date Type Department Care Team ([facility] st Contact Info) Description 02/05/2025 Refill [facility] MEDICINE [address] [place], [place] [phone] Fabiola Perdue MD 230 [place], [place] [phone] Soft tissue lesion of shoulder region Social [...] documented as of this encounter Care Teams Grocery Stock Clerk Relationship Specialty Start Date End Date Fabiola Perdue MD [address] [place] [phone] PCP - General Family Medicine 12/17/22 documented as of this encounter
[2025-05-16 13:50] LABS: Estimated Average Glucose 114 mg/dL; Hemoglobin A1c % 5.6 % (<6.0)
[2025-05-16 14:09] LABS: Alanine Aminotransferase 27 U/L (0-40); Albumin Level 3.8 g/dL (3.5-5.0); Alkaline Phosphatase 85 U/L (39-117); Anion Gap 10 (12-20); Aspartate Amino Transferase 24 U/L (5-37); Bilirubin Total 0.2 mg/dL (0.0-1.0); Blood Urea Nitrogen 16 mg/dL (9-16); Calcium 8.9 mg/dL (8.4-10.2); Carbon Dioxide 29 mmol/L (22-29); Chloride 108 mmol/L (96-108); Estimated Glomerular Filt Rate > 60; Glucose Random 78 mg/dL (60-115); Potassium 4.7 mmol/L (3.3-5.1); Sodium 142 mmol/L (135-145); Total Protein 6.7 g/dL (6.5-8.0)
== END 2025-05-16 11:30 | disposition home or self-care (01) ==
LOC: HO.HHCL 11:29
PROVIDERS: PCP General Practice; Visit Provider General Practice
DX: E66.3 Overweight (principal)
CPT/HCPCS: 36415; 80053; 83036

== ENCOUNTER 2025-05-19 09:19 | Outpatient (REF) | payer MEDICAID, SELFPAY ==
--- NOTE | ~2025-05-19 | MR_ITS ---
CLINICAL HISTORY: M19.011 - Primary osteoarthritis, right shoulder --- Additional Notes or Special Instructions: pre operative planning MR right shoulder without gadolinium Comparison: None provided Findings: Normal alignment without acute fracture. Severe AC osteoarthritis. Hypertrophic distal clavicle changes mildly flattening the opposing supraspinatus. Severe glenohumeral osteoarthritis width prominent humeral head osteophyte and eqfr-vl-vmolwgez predominantly glenoid subchondral bone marrow edematous changes. Small glenohumeral joint effusion with mild synovitis. No subacromial/subdeltoid bursitis. Mild intra-articular long head of biceps tendinosis. Two, partial-thickness, partial width, articular and bursal sided supraspinatus tendon tears (these tears oppose each other and involve the critical zone of the posterior tendon). The minimally larger articular sided tear measures up to 5 mm in AP and 1 mm in CC dimensions. Xsdw-wx-ohfbinrp supraspinatus, subscapularis and infraspinatus tendinosis. Less than 50% atrophy of the rotator cuff muscles. Posterior inferior labral degeneration +/-tear IMPRESSION: Severe glenohumeral and AC osteoarthritis. Mild glenohumeral synovitis. Two, partial-thickness, partial width, articular and bursal sided supraspinatus tendon tears (these tears oppose each other and involve the critical zone of the posterior tendon). Wcgc-tu-ikprricl supraspinatus, subscapularis and infraspinatus tendinosis. Posterior inferior labral degeneration +/-tear This document has been electronically signed by: Aiyana Stauffer MD on 05/21/2025 13:55:22
--- OUTSIDE RECORDS SUMMARY | 2025-05-19 09:24 | XMS_ITS | Encounter Summary ---
Author Organization [employer] Address 75 [facility] 7t [place] [address] Care Team Providers Care Continuous Vulcanizing Machine Operator Name Role Phone Fabiola Perdue MD Primary Care Provider [phone] Reason for Visit * Reason Comments Med Refill Encounter Details Date Type Department Care Team ([facility] st Contact Info) Description 02/05/2025 Refill [facility] MEDICINE 230 [place], [place] [phone] Fabiola Perdue MD 230 [place], [place] [phone] Soft tissue lesion of shoulder region Social [...] documented as of this encounter Care Teams Continuous Vulcanizing Machine Operator Relationship Specialty Start Date End Date Fabiola Perdue MD [address] [place] [phone] PCP - General Family Medicine 12/17/22 documented as of this encounter
== END 2025-05-19 09:20 | disposition home or self-care (01) ==
LOC: HO.MRI 09:19
PROVIDERS: PCP General Practice; Visit Provider Orthopaedic Surgery
DX: M19.011 Primary osteoarthritis, right shoulder (principal)
CPT/HCPCS: 73221

== ENCOUNTER → 2025-05-19 09:24 | Outpatient (BNV) | payer MEDICAID, SELFPAY | PROVIDERS: PCP General Practice; Visit Provider Radiology Diagnostic Radiology | DX: M19.011 Primary osteoarthritis, right shoulder (principal); M67.813 Other specified disorders of tendon, right shoulder | CPT/HCPCS: 73221 ==

== ENCOUNTER → 2025-08-20 14:05 | Outpatient (BNV) | payer MEDICAID, SELFPAY | PROVIDERS: PCP General Practice; Visit Provider Internal Medicine Cardiovascular Disease | DX: R00.1 Bradycardia, unspecified (principal) | CPT/HCPCS: 93010 ==

== ENCOUNTER 2025-08-27 17:59 | Outpatient (REF) | payer MEDICAID, SELFPAY ==
--- OUTSIDE RECORDS SUMMARY | 2025-08-27 13:00 | XMS_ITS | Encounter Summary ---
Author Organization [employer] Address 75 [facility] 7t [place] [address] Care Team Providers Care Cutter Woodwind Reeds Name Role Phone Fabiola Perdue MD Primary Care Provider [phone] Reason for Visit * Reason Comments Sore Throat Headache Excessive Sweating Encounter Details Date Type Department Care Team ([facility] Contact Info) Description 08/27/2025 1:00 PM EDT Office Visit [facility] [address] [place] [address] Cinthia Tamayo NP 230 [place] [address] Sore throat (Primary Dx); Essential hypertension; Upper respiratory tract infection, unspecified type; Dysuria; COPD with exacerbation (CMS/HCC) Social History Tobacco Use Types Packs/Day Years [...] is your housing situation today? I have xin barrera 07/14/[address] you [...] AM EDT documented as of this encounter Last Filed Vital Signs Vital Sign Reading Time Taken Comments Blood Pressure 158/85 08/27/2025 1:02 PM EDT Pulse 66 08/27/2025 1:02 PM EDT Temperature 36.7 C (98.1 F) 08/27/2025 1:02 PM EDT Respiratory Rate 20 08/27/2025 1:02 PM EDT Oxygen Saturation 96% 08/27/2025 1:02 PM EDT Inhaled Oxygen Concentration - - Weight 92.4 kg (203 lb 12.8 oz) 08/27/2025 1:02 PM EDT Height - - Body Mass Index 28.42 04/16/2025 4:14 PM EDT documented in this encounter Progress Notes * Cinthia Tamayo NP - 08/27/2025 1:00 PM EDT Amaury Bermeo is a 59 y.o. male who presents to the office for Chief Complaint Patient presents with Sore Throat Headache Excessive Sweating Problem List[1] Medical History[2] Allergies[3] Amaury Bermeo, 59-year-old male - Sweating, subjective fever, and persistent cough for the past 3 days - Cough described as severe, interfering with sleep, productive of green sputum - Burning sensation with urination during the same period - Headache and difficulty sleeping associated with current illness - Reports cold sweats - Denies prior urinary tract infections - History of COPD, currently using inhaler - Reports increased cough and wheeze over the past 2 days, with chest tightness and shortness of breath worsening last night - Ears described as itchy - Current smoker - Reports exposure to sick coworkers at work Review of Systems Constitutional: Positive for fever. HENT: Positive for congestion and sore throat. Respiratory: Positive for cough, shortness of breath and wheezing. Cardiovascular: Negative for chest pain, palpitations and leg swelling. Musculoskeletal: Negative for arthralgias. BP (!) 158/85 (BP Location: Left arm, Patient Position: Sitting, BP Cuff Size: Adult) Pulse 66 Temp 98.1 ??F (36.7 ??C) (Oral) Resp 20 Wt 203 lb 12.8 oz (92.4 kg) SpO2 96% BMI 28.42 kg/m?? Physical Exam Vitals reviewed. Constitutional: Appearance: Normal appearance. HENT: Head: Normocephalic. Cardiovascular: Rate and Rhythm: Normal rate and regular rhythm. Heart sounds: Normal heart sounds. Pulmonary: Breath sounds: Normal breath sounds. Abdominal: Palpations: Abdomen is soft. Musculoskeletal: Cervical back: Neck supple. Neurological: Mental Status: He is alert. Psychiatric: Mood and Affect: Mood normal. - HEENT: Oropharynx without erythema or exudate. Pruritus in ears. - LUNGS: Auscultation of lungs performed; oxygen saturation at 96% on room air. Results: Orders Only on 08/20/2025 Component Date Value Ref Range Status White Blood Count 08/20/2025 8.2 4.8 - 10.8 X10*3/uL Final Red Blood Count 08/20/2025 4.45 (L) 4.60 - 5.80 X10*6/uL Final Hemoglobin 08/20/2025 13.6 (L) 14.0 - 18.0 g/dl Final Hematocrit 08/20/2025 39.5 (L) 42.0 - 52.0 % Final Mean Corpuscular Volume 08/20/2025 88.8 80.0 - 98.0 fL Final Mean Corpuscular Hemoglobin 08/20/2025 30.6 27.0 - 33.0 pg Final Mean Corpuscular HGB Conc 08/20/2025 34.4 31.0 - 36.0 g/dl Final Red Cell Distribution Width 08/20/2025 13.9 11.0 - 16.0 % Final Platelet Count 08/20/2025 278 160 - 400 X10*3/uL Final Mean Platelet Volume 08/20/2025 9.7 9.4 - 12.4 fL Final NRBC Pct Auto 08/20/2025 0.0 0.0 - 0.2 /100WBC Final NRBC Abs Auto 08/20/2025 0.000 0.0 - 0.012 X10*3/uL Final Sodium 08/20/2025 139 135 - 145 mmol/L Final Potassium 08/20/2025 4.5 3.3 - 5.1 mmol/L Final Chloride 08/20/2025 105 96 - 108 mmol/L Final Carbon Dioxide 08/20/2025 30 (H) 22 - 29 mmol/L Final Anion Gap 08/20/2025 9 (L) 12 - 20 Final Urea Nitrogen (BUN) 08/20/2025 16 9 - 16 mg/dL Final Creatinine, Serum 08/20/2025 0.84 0.5 - 1.4 mg/dL Final Creatinine Clr Calc Pharmacy 08/20/2025 109.4 Final eGFR (calculated from the MDRD study equation) and eCrCl(calculated from the Cockcroft-Gault equation) are based ondifferent parameters and may not yield comparable results.If eCrCl result is absurd,please check patient'sheight/weight. Estimated Glomerular Filt Rate 08/20/2025 >60 Final Chronic Kidney Disease: Estimated GFR < 60 mL/min/1.07d5Yfhtpk Kidney Disease: Estimated GFR < 15 mL/min/1.73m2 Glucose 08/20/2025 93 60 - 115 mg/dL Final Calcium 08/20/2025 8.9 8.4 - 10.2 mg/dL Final MRSA Nasal PCR 08/20/2025 NEGATIVE Negative Final SA Nasal PCR 08/20/2025 NEGATIVE Negative Final MRSA Interpretation 08/20/2025 SEE NOTE Final MRSA target DNA not detected; SA target DNA not detected.A MRSA NEGATIVE, SA NEGATIVE test result does not precludeMRSA or SA nasal colonization. Assessment & Plan Sore throat Essential hypertension Upper respiratory tract infection, unspecified type Dysuria Orders: Chlamydia/N. Gonorrhoeae, PCR, Urine Culture, Urine, Routine COPD with exacerbation ([facility] ([facility]) Assessment & Plan Upper respiratory tract infection, unspecified type: - Upper respiratory tract infection suspected, differential includes COVID-19, influenza, and streptococcal pharyngitis; COVID, flu, and strep tests negative. - Prescribed azithromycin (Z-Pawan) for infection. Instructed to take 2 tablets on day one, then one tablet daily for the remaining days. Advised to obtain chest X-ray if symptoms do not improve in twodays. Ordered urine sample for culture and gonorrhea/chlamydia testing. Dysuria: - Dysuria possibly related to dehydration from fever or urinary tract infection. - Ordered urine sample for culture and gonorrhea/chlamydia testing. COPD with exacerbation ([facility] ([facility]): - COPD exacerbation with increased cough, sputum production, chest tightness, and dyspnea. Oxygen saturation noted at 96%. - Prescribed prednisone, 2 tablets daily for 5 days. Advised to take first dose as soon as available and in the morning to avoid insomnia. Continue inhaler use as previously managed. Monitor for improvement; if not improved in two days, chest X-ray to be performed. - Risks and side effects: Discussed that prednisone may be activating and could raise blood sugar. Tobacco use: - Tobacco use ongoing, contributing to respiratory symptoms and COPD exacerbation. - Prescribed nicotine patch to assist with smoking cessation. Prescription - Prednisone: 2 tablets once daily for 5 days, take in the morning to avoid insomnia; may cause activation and elevated blood sugar - Azithromycin (Z-Pawan): 2 tablets on day 1, then 1 tablet daily on days 2-5 - Nicotine patch 21 mg daily for smoking reduction Current Medications[4] Based on our discussion, I have outlined the following instructions for you: - Take azithromycin (Z-Pawan) for your infection: take 2 tablets on the first day, then take 1 tableteach day for the next few days as directed. - If your symptoms do not get better in two days, get a chest X-ray. - Give a urine sample for testing. - Take prednisone: take 2 tablets each day for 5 days. Take your first dose as soon as you have it,and always take it in the morning. - Keep using your inhaler the same way you have been. - Use the nicotine patch to help you stop smoking. Thank you again for your visit, and we look forward to supporting you in your journey to better health. This note was drafted using Ambient (AI) technology. 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 [3] No Known Allergies [4] Current Outpatient Medications: acetaminophen (Tylenol) 325 MG tablet, TAKE 2 TABLETS BY MOUTH EVERY 6 HOURS NEEDED FOR PAIN OR FEVER, Disp: , Rfl: albuterol (2.5 MG/3ML) 0.083% nebulizer solution, INHALE 1 AMPULE USING A NEBULIZER THREE TIMES DAILY, Disp: 90 mL, Rfl: 3 albuterol (Ventolin HFA) 108 (90 Base) MCG/ACT inhaler, Inhale 2 puffs every 6 (six) hours if needed for wheezing., Disp: 18 g, Rfl: 11 amLODIPine (Norvasc) 10 MG tablet, Take 1 tablet (10 mg) by mouth Once per day., Disp: 90 tablet, Rfl: 3 Anoro Ellipta 62.5-25 MCG/ACT aerosol powder , Inhale 1 puff Once per day., Disp: 1 each, Rfl: 11 azithromycin (Zithromax) 250 MG tablet, Take 2 tablets (500 mg) by mouth Once per day for 1 day, THEN 1 tablet (250 mg) Once per day for 4 days., Disp: 6 tablet, Rfl: 0 Blood Pressure Monitoring (Omron 3 Series BP Monitor) device, 1 each in the morning. Check BP as directed, Disp: 1 each, Rfl: 0 cetirizine (ZyrTEC) 10 MG tablet, Take 1 tablet (10 mg) by mouth Once per day., Disp: 90 tablet, Rfl: 3 fluticasone (Flonase) 50 MCG/ACT nasal spray, INSTILL 1-2 SPRAYS IN EACH NOSTRIL ONCE DAILY, Disp: 48 g, Rfl: 0 ibuprofen 600 MG tablet, TAKE 1 TABLET BY MOUTH EVERY 6 HOURS NEEDED FOR PAIN OR FEVER FOR 4 DAYS, Disp: , Rfl: meclizine (Antivert) 25 MG tablet, take 1 tablet by oral route 3 times every day as needed, Disp: 90 tablet, Rfl: 3 melatonin 5 MG tablet, Take 1 tablet (5 mg) by mouth at bedtime., Disp: 90 tablet, Rfl: 3 nicotine (Nicoderm CQ) 21 MG/24HR patch, Place 1 patch on the skin 1 (one) time each day at the same time., Disp: 30 patch, Rfl: 0 omeprazole (PriLOSEC) [address] capsule, TAKE 1 CAPSULE BY MOUTH ONE OR TWO TIMES DAILY NEEDED FOR ABDOMINAL PAIN, Disp: 180 capsule, Rfl: 1 oxyCODONE (Roxicodone) 5 MG immediate release tablet, TAKE 1 TABLET BY MOUTH EVERY TWELVE HOURS NEEDED FOR SEVERE PAIN, Disp: 56 tablet, Rfl: 0 predniSONE (Deltasone) 20 MG tablet, Take 1 tablet (20 mg) by mouth Once per day for 5 days., Disp:5 tablet, Rfl: 0 documented in this encounter Miscellaneous Notes * Assessment & Plan Note - Cinthia Tamayo NP - 08/27/2025 1:00 PM EDTAssociated Problem(s): Sore throat * Assessment & Plan Note - Cinthia Tamayo NP - 08/27/2025 1:00 PM EDTAssociated Problem(s): Essential hypertension * Assessment & Plan Note - Cinthia Tamayo NP - 08/27/2025 1:00 PM EDTAssociated Problem(s): Upper respiratory tract infection * Assessment & Plan Note - Cinthia Tamayo NP - 08/27/2025 1:00 PM EDTAssociated Problem(s): Dysuria Orders: Chlamydia/N. Gonorrhoeae, PCR, Urine Culture, Urine, Routine * Assessment & Plan Note - Cinthia Tamayo NP - 08/27/2025 1:00 PM EDTAssociated Problem(s): COPD with exacerbation (CMS/HCC) documented in this encounter Plan of Treatment Scheduled Orders Name Type Priority Associated Diagnoses Orde r Schedule Chlamydia/N. Gonorrhoeae, PCR, Urine Lab Routine Dysuria Ordered: 08/27/2025 Culture, Urine, Routine Microbiology Routine Dysuria Ordered: 08/27/2025 documented as of this encounter Visit Diagnoses Diagnosis Sore throat- Primary Acute pharyngitis Essential hypertension Unspecified essential hypertension Upper respiratory tract infection, unspecified type Dysuria COPD with exacerbation (CMS/HCC) ([facility]) documented in this encounter Additional Health Concerns Assessment Noted Time PHQ-9 Depression Total Score: 0 07/14/20 24 2:09 PM EDT documented as of this encounter Care Teams Cutter Woodwind Reeds Relationship Specialty Start Date End Date Fabiola Perdue MD [address] [place] [phone] PCP - General Family Medicine 12/17/22 documented as of this encounter
--- OUTSIDE RECORDS SUMMARY | 2025-08-27 18:51 | XMS_ITS | Clinical Summary ---
Author Organization 175 [facility] Address [address] [place] [phone] Phone Care Team Providers Care Periodicals Library Assistant Name Role Phone Fabiola Perdue MD Primary Care Provider [phone] Allergies No known active allergies Medications acetaminophen (TYLENOL) 325 mg tablet Take by mouth every 6 (six) hours if needed for mild pain. Active ibuprofen (ADVIL,MOTRIN) 600 mg tablet Take by mouth. A ctive albuterol HFA (PROAIR HFA ; PROVENTIL HFA ; VENTOLIN HFA) 90 mcg/actuation inhaler Inhale 2 puffs by mouth every 6 (six) hours if needed for wheezing. Active albuterol HFA (PROAIR HFA ; PROVENTIL HFA ; VENTOLIN HFA) 90 mcg/actuation inhaler Inhale 2 puffs by mouth every 6 (six) hours if needed for wheezing. Active amLODIPine (NORVASC) 10 mg tablet Take by mouth 1 (one) time each day. Active umeclidinium-vi lanteroL (Anoro Ellipta) 62.5-25 mcg/actuation inhaler Inhale 1 puff by mouth 1 (one) time each day. Active cetirizine (ZyrTEC) 10 mg tablet Take 1 tablet (10 mg total) by mouth 1 (one) time each day. Active fluticasone propionate (FLONASE) 50 mcg/actuation nasal spray Administer 1 spray into each nostril 1 (one) time each day. Shake gently. Before first use, prime pump. After use, clean tip and replace cap. Active meclizine (ANTIVERT) 25 mg tablet Chew 1 tablet (25 mg total) 3 (three) times a day if needed for dizziness. Active melatonin 3 mg tablet Take by mouth. Activ e omeprazole (PriLOSEC) [address] capsule Take 1 capsule (20 mg total) by mouth 1 (one) time each day. Do not crush or chew. Active oxyCODONE (ROXICODONE) 5 mg immediate release tablet every 4 (four) hours if needed for severe pain. Active ciclopirox (LOPROX) 0.77 % gel Apply topically 2 (two) times a day. 45 g 5 10/08/20 25 Active ketoconazole (NIZORAL) 2 % cream Apply topically 1 (one) time each day. 30 g 2 Active Encounters Date Type Department Care Team Description 07/10/2025 9:30 AM EDT Consult Orthopedic Surgery [place] [id number] [phone] Fady Mauro DPM Dermatophytosis of nail (Primary Dx); Nail dystrophy; Tinea pedis of both feet from Last 3 Months Social History Tobacco Use Types Packs/Day Years Used Date Smoking Tobacco: Never Assessed Sex and Gender Information Value Date Recorded Sex Assigned at Not on file Legal Sex Male 5:29 AM EST Gender Identity Not on file Sexual Orientation Not on file Plan of Treatment Upcoming Encounters Date Type Department Care Team (Late st Contact Info) Description 10/10/2025 10:15 AM EST Office Visit Orthopedic [place] [phone] [phone] Fady Mauro DPM [address] [phone] Health Maintenance Due Date Last Done Comments Colorectal Cancer Screening: Colonoscopy 1965 Pneumococcal Vaccine: 50+ Years (1 of 2 - PCV) 1983 Zoster Vaccines (1 of 2) 2014 RSV Immunization Adult Patients (1 - Risk 60-74 years 1-dose series) 2024 Depression Screening 11/29/2024 Hepatitis C Screening 04/18/2025 Social Influencers of Health Screening 04/18/2025 COVID-19 Vaccine ( - 2023-2 5 season) 2025 Influenza Vaccine (#1) 2025 Hypertension/CHF/CAD Annual BMP Blood Test 05/16/2026 05/16/2025 Cholesterol Screening (Lipid Panel) 07/14/2029 07/14/2024 DTaP,Tdap,and Td Vaccines (4 - Td or Tdap) 07/02/2032 07/02/2022, 07/29/2020, 08/24/2011 Hepatitis A Vaccines Completed 08/21/2008, 06/07/2003 Hepatitis B Vaccines Completed 05/23/2018, 08/21/2008, 09/27/2007 HIV Screening Completed 04/06/2022 HIB Vaccines Aged Out No longer eligi ble based on patient's age to complete this topic HPV Vaccines Aged Out No longer eligi ble based on patient's age to complete this topic IPV Vaccines Aged Out No longer eligi ble based on patient's age to complete this topic MMR Vaccines Aged Out No longer eligi ble based on patient's age to complete this topic Meningococcal ACWY Vaccine Aged Out N o longer eligible based on patient's age to complete this topic Meningococcal B Vaccine Aged Out No l onger eligible based on patient's age to complete this topic RSV Immunization Patients Under 20 months Aged Out No longer eligible b ased on patient's age to complete this topic Varicella Vaccines Aged Out No longer eligible based on patient's age to complete this topic Insurance MEDICAID - [place] Care Teams Periodicals Library Assistant Relationship Specialty Start Date End Date Fabiola Perdue MD [address] [place] [id number] PCP - General Parachute Mender 04/17/25
--- OUTSIDE RECORDS SUMMARY | 2025-08-27 18:51 | XMS_ITS | Encounter Summary ---
Author Organization [employer] Address [address] [place] [address] Care Team Providers Care Financial Assistance Advisor Name Role Phone Fabiola Perdue MD Primary Care Provider [phone] Encounter Details Date Type Department Care Team (Late st Contact Info) Description 08/14/2024 Orders Only [facility] MEDICINE 230 [place], [place] [phone] Fabiola Perdue MD 230 [place], [place] [phone] Arthritis of left glenohumeral joint (Primary Dx) Social History Tobacco Use Types Packs/Day Years [...] as of this encounter Visit Diagnoses Diagnosis Arthritis of left glenohumeral joint- Primary documented in this encounter Additional Health Concerns Assessment Noted Time PHQ-9 Depression Total Score: 0 07/14/20 24 2:09 PM EDT documented as of this encounter Care Teams Financial Assistance Advisor Relationship Specialty Start Date End Date Fabiola Perdue MD [address] [place] [address] PCP - General Family Medicine 12/17/22 documented as of this encounter
--- OUTSIDE RECORDS SUMMARY | 2025-08-27 18:51 | XMS_ITS | Encounter Summary ---
Author Organization [employer] Address [address] [facility] 7t [place] [address] Care Team Providers Care Micro Computer Specialist Name Role Phone Fabiola Perdue MD Primary Care Provider [phone] Reason for Visit * Reason Comments Med Refill Encounter Details Date Type Department Care Team ([facility] st Contact Info) Description 02/05/2025 Refill [facility] MEDICINE 230 [place], [place] [phone] Fabiola Perdue MD 230 [place], [place] [phone] Soft tissue lesion of shoulder region Social [...] documented as of this encounter Care Teams Micro Computer Specialist Relationship Specialty Start Date End Date Fabiola Perdue MD [address] [place] [address] PCP - General Family Medicine 12/17/22 documented as of this encounter
--- OUTSIDE RECORDS SUMMARY | 2025-08-27 18:51 | XMS_ITS | Encounter Summary ---
Author Organization [employer] Address [address] [place] [address] Care Team Providers Care Pbx Operator Name Role Phone Fabiola Perdue MD Primary Care Provider Encounter Details Date Type Department Care Team (Latest Contact Info) Description 08/27/2025 Travel Social History Tobacco Use Types Packs/Day Years [...] documented as of this encounter Visit Diagnoses Not on filedocumented in this encounter Additional Health Concerns Assessment Noted Time PHQ-9 Depression Total Score: 0 07/14/20 24 2:09 PM EDT documented as of this encounter Care Teams Pbx Operator Relationship Specialty Start Date End Date Fabiola Perdue MD 230 [place] [address] PCP - General Family Medicine 12/17/22 documented as of this encounter
--- OUTSIDE RECORDS SUMMARY | 2025-08-27 18:51 | XMS_ITS | Encounter Summary ---
Author Organization [employer] Address [address] [place] [address] Care Team Providers Care Blending Tank Helper Name Role Phone Fabiola Perdue MD Primary Care Provider [phone] Encounter Details Date Type Department Care Team (Late st Contact Info) Description 09/22/2024 Orders Only [facility] MEDICINE 230 [place], [place] [phone] Fabiola Perdue MD 230 [place], [place] [phone] Chronic right shoulder pain (Primary Dx) Social History Tobacco Use Types [...] as of this encounter Visit Diagnoses Diagnosis Chronic right shoulder pain- Primary Pain in joint, shoulder region documented in this encounter Additional Health Concerns Assessment Noted Time PHQ-9 Depression Total Score: 0 07/14/20 24 2:09 PM EDT documented as of this encounter Care Teams Blending Tank Helper Relationship Specialty Start Date End Date Fabiola Perdue MD [address] [place] [id number] PCP - General Family Medicine 12/17/22 documented as of this encounter
--- OUTSIDE RECORDS SUMMARY | 2025-08-27 18:51 | XMS_ITS | Encounter Summary ---
Author Organization [employer] Address [address] [facility] 7t [place] [address] Care Team Providers Care Internal Revenue Agent Name Role Phone Fabiola Perdue MD Primary Care Provider [phone] Reason for Visit * Reason Onset Date Comments Med Refill 12/08/2024 Encounter Details Date Type Department Care Team ([facility] st Contact Info) Description 12/08/2024 Refill [facility] MEDICINE 230 [place], [place] [phone] Fabiola Perdue MD 230 [place], [place] [phone] Social History Tobacco Use Types Packs/Day Years [...] documented as of this encounter Care Teams Internal Revenue Agent Relationship Specialty Start Date End Date Fabiola Perdue MD [address] [place] [address] PCP - General Family Medicine 12/17/22 documented as of this encounter
--- OUTSIDE RECORDS SUMMARY | 2025-08-27 18:51 | XMS_ITS | Encounter Summary ---
Author Organization [employer] Address [address] 7[address] [place] [address] Care Team Providers Care Fashion Consultant Sales Name Role Phone Fabiola Perdue MD Primary Care Provider [phone] Encounter Details Date Type Department Care Team (Late st Contact Info) Description 12/07/2024 Orders Only [facility] MEDICINE 230 [place], [place] [phone] Fabiola Perdue MD 230 [place], [place] [phone] Soft tissue lesion of shoulder region (Primary Dx) Social History Tobacco Use Types [...] Diagnoses Diagnosis Soft tissue lesion of shoulder region- Primary documented in this encounter Additional Health Concerns Assessment Noted Time PHQ-9 Depression Total Score: 0 07/14/20 24 2:09 PM EDT documented as of this encounter Care Teams Fashion Consultant Sales Relationship Specialty Start Date End Date Fabiola Perdue MD 230 [place] [address] PCP - General Family Medicine 12/17/22 documented as of this encounter
--- OUTSIDE RECORDS SUMMARY | 2025-08-27 18:51 | XMS_ITS | Encounter Summary ---
Author Organization [employer] Address [address] [facility] 7t [place] [address] Care Team Providers Care Child Adolescent Psychiatrist Name Role Phone Fabiola Perdue MD Primary Care Provider [phone] Reason for Visit * Reason Onset Date Comments Nurse Triage 09/22/2024 Encounter Details Date Type Department Care Team ([facility] st Contact Info) Description 09/22/2024 Telephone [facility] MEDICINE 230 [place], [place] [phone] Fabiola Perdue MD 230 [place], [place] [phone] Nurse Triage Social History Tobacco Use Types Packs/Day Years [...] AM EDT documented as of this encounter Miscellaneous Notes * Telephone Encounter - Kenyetta Radford RN - 09/22/2024 1:25 PM EDT TC placed to pt. To advise of APAP- codeine rx to last until appt, pt. Reports he has already been taking this approx twice daily x 1 month (last prescribed 08/14/24) without any positive effect. Pt. Reports he feels comfortable waiting until appt. 09/29/24 to discuss alternative rx, advised pt. Message would be sent to PCP as FYRei * Telephone Encounter - Johnna Soto RN - 09/22/2024 9:30 AM EDT Called pt. He states that he has been having a lot of pain all over his body. This has been a chronic condition for years but over the past 2 weeks he is now having shoulder pain, knee, and increasedall over pain. Pt stated he didn't have an appt. For 3 months with PCP and he can not tolerate the pain especially at night when he tries to sleep. I found earlier appt. For 09/29/24 at 315pm and scheduled pt. In. Pt is requesting me to send a note to PCP to give him a pain medication prescription to get him through the week prior to him seeing the PCP. I will forward this note to PCP per pt. Request. Protocol Used: Muscle Aches and Body Pain (Adult) Protocol-Based Disposition: Go to Office or Video Visit Now- Pt. Will not receive pain medication in walk in so sending a note to PCP prior to 09/29/24 appt with her. Video visit offer not recorded Positive Triage Questions: * Severe pain (e.g., excruciating, unable to do any normal activities) and not improved 2 hours after pain medicine * Muscle aches or body pains are a chronic symptom (recurrent or ongoing AND present > 4 weeks) * All higher-acuity triage questions were negative * Telephone Encounter - Sandeep Naylor - 09/22/2024 8:17 AM EDT Symptom: Body Aches Outcome: Schedule an appointment to be seen within 3 days Reason: Caller denied all higher acuity questions Chadian Speaker documented in this encounter Plan of Treatment Not on file documented as of this encounter Visit Diagnoses Not on filedocumented in this encounter Additional Health Concerns Assessment Noted Time PHQ-9 Depression Total Score: 0 07/14/20 24 2:09 PM EDT documented as of this encounter Care Teams Child Adolescent Psychiatrist Relationship Specialty Start Date End Date Fabiola Perdue MD 230 [place] [address] PCP - General Family Medicine 12/17/22 documented as of this encounter
--- OUTSIDE RECORDS SUMMARY | 2025-08-27 18:52 | XMS_ITS | Encounter Summary ---
Author Organization [employer] [facility] Address [address] [place] [address] 7t [place] [address] Care Team Providers Care Retail Services Professional Name Role Phone Fabiola Perdue MD Primary Care Provider [phone] Reason for Visit * Reason Onset Date Comments Nurse Triage 06/23/2023 Encounter Details Date Type Department Care Team ([facility] st Contact Info) Description 06/23/2023 Telephone [facility] MEDICINE 230 [place], [place] [phone] Fabiola Perdue MD 230 [place], [place] [phone] Nurse Triage Social History Tobacco Use Types Packs/Day Years Used Date Smoking Tobacco: Every Day Cigarettes Passive Smoke Exposure: Current Smokeless Tobacco: Never Alcohol Use Standard Drinks/Week Comments Never 0 (1 standard drink = 0.6 oz pur e alcohol) Depression Answer Date Recorded Patient Health Questionnaire-9 Score 0 01/06/2023 Depression Answer Date Recorded Patient Health Questionnaire-2 Score 0 01/06/2023 Sex and Gender Information Value Date Recorded Sex Assigned at Male 09/28/2022 10:16 AM EDT Legal Sex Male 10:16 AM EDT Gender Identity Male 09/28/2022 10:16 AM EDT Sexual Orientation Straight 09/28/2022 10 :16 AM EDT documented as of this encounter Miscellaneous Notes * Telephone Encounter - Hemalatha Tamayo RN - 06/23/2023 11:27 AM EDT Triage call Pt reports urinary symptoms last several weeks . Symptoms come and go. Pt reports burning with urination at times, strong odor and has to urinate all the time. Pt reports this causes someabdominal pain as well which comes and goes. Advised Pt to come to [facility] today , opened until 8pm andPt agreed to this disposition. Protocol Used: Urinary Symptoms (Adult) Protocol-Based Disposition: See in Office or Video Visit Today Video visit not offered Positive Triage Questions: * Can't control passage of urine (i.e., urinary incontinence) and new-onset (< 2 weeks) or worsening * Urinating more frequently than usual (i.e., frequency) * Bad or foul-smelling urine * All higher-acuity triage questions were negative Care Advice Discussed: * Reasons To Call Back - Fever occurs - Pain or burning with urination - You become worse Triage call with [employer] Senior Project Manager ID [id number] Pt didn't answer. Left voice message to call [facility] triage line [phone] * Telephone Encounter - Maira Sheriff - 06/23/2023 11:13 AM EDT Symptoms: Abdominal Pain - Male, Back Pain - Not From Injury Outcome: Schedule an urgent appointment (within 4 hours) or talk to a nurse or provider soon Reason: Getting worse The caller accepted this outcome Please contact pt at [phone] ([place]) documented in this encounter Plan of Treatment Not on file documented as of this encounter Visit Diagnoses Not on filedocumented in this encounter Additional Health Concerns Assessment Noted Time PHQ-9 Depression Total Score: 0 01/06/20 3:59 PM EST documented as of this encounter Care Teams Retail Services Professional Relationship Specialty Start Date End Date Fabiola Perdue MD 230 [place] [address] PCP - General Family Medicine 12/17/22 documented as of this encounter
--- OUTSIDE RECORDS SUMMARY | 2025-08-27 18:52 | XMS_ITS | Encounter Summary ---
Author Organization [employer] Address [address] [facility] 7t [place] [address] Care Team Providers Care Structural Engineering Technician Name Role Phone Fabiola Perdue MD Primary Care Provider [phone] Reason for Visit * Reason Onset Date Comments Medication Question 11/02/2024 Encounter Details Date Type Department Care Team ([facility] st Contact Info) Description 11/02/2024 Telephone [facility] MEDICINE 230 [place], [place] [phone] Fabiola Perdue MD 230 [place], [place] [phone] Medication Question Social History Tobacco Use Types Packs/Day Years [...] encounter Miscellaneous Notes * Telephone Encounter - Mery Ba - 11/02/2024 10:19 AM EST Tc from pt requesting a status on oxyCODONE (Roxicodone) 5 MG immediate release tablet aspt informshe's overdue on medication. documented in this encounter Plan of Treatment Not on file documented as of this encounter Visit Diagnoses Not on filedocumented in this encounter Additional Health Concerns Assessment Noted Time PHQ-9 Depression Total Score: 0 07/14/20 24 2:09 PM EDT documented as of this encounter Care Teams Structural Engineering Technician Relationship Specialty Start Date End Date Fabiola Perdue MD 230 [place] [address] PCP - General Family Medicine 12/17/22 documented as of this encounter
--- OUTSIDE RECORDS SUMMARY | 2025-08-27 18:52 | XMS_ITS | Encounter Summary ---
Author Organization [employer] Address [address] [place] [address] [address]t [place] [address] Care Team Providers Care Marking Room Supervisor Name Role Phone Fabiola Perdue MD Primary Care Provider [phone] Encounter Details Date Type Department Care Team (Late st Contact Info) Description 05/05/2023 Orders Only [facility] MEDICINE 230 [place], [place] [phone] Fabiola Perdue MD 230 [place], [place] [phone] Chronic right shoulder pain (Primary Dx) Social [...] Orientation Straight 09/28/2022 10 :16 AM EDT COVID-19 Exposure Response Date Recorded In the last 10 days, have yo u been in contact with someone who was confirmed or suspected to have Coronavirus/COVID-19? No / Unsure 04/16/2023 12:42 PM EDT documented as of this encounter Plan of Treatment Not on file documented as of this encounter Visit Diagnoses Diagnosis Chronic right shoulder pain- Primary Pain in joint, shoulder region documented in this encounter Additional Health Concerns Assessment Noted Time PHQ-9 Depression Total Score: 0 01/06/20 3:59 PM EST documented as of this encounter Care Teams Marking Room Supervisor Relationship Specialty Start Date End Date Fabiola Perdue MD 230 [place] [address] PCP - General Family Medicine 12/17/22 documented as of this encounter
--- OUTSIDE RECORDS SUMMARY | 2025-08-27 18:52 | XMS_ITS | Encounter Summary ---
Author Organization [employer] Address [address] [facility] 7t [place] [address] Care Team Providers Care Straddle Truck Driver Name Role Phone Fabiola Perdue MD Primary Care Provider [phone] Reason for Visit * Reason Onset Date Comments Appointment Request 03/30/2024 Encounter Details Date Type Department Care Team ([facility] st Contact Info) Description 03/30/[address] [facility] MEDICINE [address] [place], [place] [phone] Fabiola Perdue MD 230 [place], [place] [phone] Appointment Request Social History Tobacco Use Types Packs/Day Years Used Date Smoking Tobacco: Every Day Cigarettes Passive Smoke Exposure: Current Smokeless Tobacco: Never Alcohol Use Standard Drinks/Week Comments Never 0 (1 standard drink = 0.6 oz pur e alcohol) Depression Answer Date Recorded Patient Health Questionnaire-9 Score 0 01/06/2023 Housing Stability Answer Date Recorded What is your housing situation today? I have xin barrera 10/09/[address] you li ve. Do you have problems with any of the following? None of the above 10/09/2023 Food Insecurity Answer Date Recorded Within the past 12 months, y ou worried that your food would run out before you got money to buy more: Never True 10/09/2023 Within the past 12 months,th e food you bought just didn't last and you didn't have enough money to get more: Never True 09/2023 Transportation Answer Date Recorded In the past 12 months, has l ack of transportation kept you from medical appts, meetings, work or from getting things needed for daily living? No 10/09/2023 Utilities Answer Date Recorded In the past 12 months, has t he electric, gas, oil or water company threatened to shut off services in your home? No 10/09/2023 Depression Answer Date Recorded Patient Health Questionnaire-2 Score 0 01/06/2023 Sex and Gender Information Value Date Recorded Sex Assigned at Male 09/28/2022 10:16 AM EDT Legal Sex Male 10:16 AM EDT Gender Identity Male 09/28/2022 10:16 AM EDT Sexual Orientation Straight 09/28/2022 10 :16 AM EDT documented as of this encounter Miscellaneous Notes * Telephone Encounter - Korey Brandt - 03/30/2024 11:42 AM EDT Tc from patient calling to cancel appt for 03/31 and would like a call back to reschedule documented in this encounter Plan of Treatment Not on file documented as of this encounter Visit Diagnoses Not on filedocumented in this encounter Additional Health Concerns Assessment Noted Time PHQ-9 Depression Total Score: 0 01/06/20 3:59 PM EST documented as of this encounter Care Teams Straddle Truck Driver Relationship Specialty Start Date End Date Fabiola Perdue MD 230 [place] [address] PCP - General Family Medicine 12/17/22 documented as of this encounter
--- OUTSIDE RECORDS SUMMARY | 2025-08-27 18:52 | XMS_ITS | Clinical Summary ---
Author Organization [employer] Address [address] [facility] [address] [place] [address] Care Team Providers Care Rn Nursery Name Role Phone Fabiola Perdue MD Primary Care Provider Allergies No known active allergies Medications meclizine (Antivert) 25 MG tabletIndication s:Vertigo take 1 tablet by oral route 3 times every day as needed 90 tablet 3 01/05/20 23 Active Blood Pressure Monitoring (Omron 3 Series BP Monitor) device 1 each in the morning. Check BP as directed 1 each 04/16/20 23 Active amLODIPine (Norvasc) 10 MG tabletIndication s:Essential hypertension Take 1 tablet (10 mg) by mouth Once per day. 90 tablet 3 04/03/20 24 Active albuterol (Ventolin HFA) 108 (90 Base) MCG/ACT inhalerIndicatio ns:Chronic obstructive pulmonary disease, unspecified COPD type (CMS/HCC) ([facility]) Inhale 2 puffs every 6 (six) hours if needed for wheezing. 18 g 11 07/14/20 24 Active Anoro Ellipta 62.5-25 MCG/ACT aerosol powderIndication s:Chronic obstructive pulmonary disease, unspecified COPD type (CMS/HCC) (HCC) Inhale 1 puff Once per day. 1 each 11 07/14/20 24 Active melatonin 5 MG tabletIndication s:Primary insomnia Take 1 tablet (5 mg) by mouth at bedtime. 90 tablet 3 07/14/20 24 Active albuterol (2.5 MG/3ML) 0.083% nebulizer solutionIndicati ons:Chronic obstructive pulmonary disease, unspecified COPD type (CMS/HCC) (HCC) INHALE 1 AMPULE USING A NEBULIZER THREE TIMES DAILY 90 mL 3 09/22/20 24 Active omeprazole (PriLOSEC) [address] capsule TAKE 1 CAPSULE BY MOUTH ONE OR TWO TIMES DAILY NEEDED FOR ABDOMINAL PAIN 180 capsule 1 02/22/20 25 Active acetaminophen (Tylenol) 325 MG tabletIndication s:Chronic right shoulder pain TAKE 2 TABLETS BY MOUTH EVERY 6 HOURS NEEDED FOR PAIN OR FEVER 11/24/20 24 Active ibuprofen 600 MG tabletIndication s:Chronic right shoulder pain TAKE 1 TABLET BY MOUTH EVERY 6 HOURS NEEDED FOR PAIN OR FEVER FOR 4 DAYS 11/24/20 24 Active cetirizine (ZyrTEC) 10 MG tabletIndication s:Seasonal allergies Take 1 tablet (10 mg) by mouth Once per day. 90 tablet 3 04/16/20 25 026 Active fluticasone (Flonase) 50 MCG/ACT nasal sprayIndications :Seasonal allergies INSTILL 1-2 SPRAYS IN EACH NOSTRIL ONCE DAILY 48 g 07/09/20 25 Active oxyCODONE (Roxicodone) 5 MG immediate release tabletIndication s:Soft tissue lesion of shoulder region TAKE 1 TABLET BY MOUTH EVERY TWELVE HOURS NEEDED FOR SEVERE PAIN 56 tablet 08/07/20 25 Active predniSONE (Deltasone) 20 MG tablet Take 1 tablet (20 mg) by mouth Once per day for 5 days. 5 tablet 08/27/20 25 025 Active azithromycin (Zithromax) 250 MG tablet Take 2 tablets (500 mg) by mouth Once per day for 1 day, THEN 1 tablet (250 mg) Once per day for 4 days. 6 tablet 08/27/20 25 025 Active nicotine (Nicoderm CQ) 21 MG/24HR patch Place 1 patch on the skin 1 (one) time each day at the same time. 30 patch 08/27/20 25 025 Active oxyCODONE (Roxicodone) 5 MG immediate release tabletIndication s:Soft tissue lesion of shoulder region TAKE 1 TABLET BY MOUTH EVERY TWELVE HOURS NEEDED FOR SEVERE PAIN 56 tablet 07/10/20 25 025 Discontinued Active Problems Problem Noted Date Diagnosed Date Upper respiratory tract infection 08/27/2025 Assessment & Plan (08/27/2025 5:15 PM EDT): Sore throat 08/27/2025 Assessment & Plan (08/27/2025 5:15 PM EDT): Dysuria 08/27/2025 Assessment & Plan (08/27/2025 5:15 PM EDT): Orders: Chlamydia/N. Gonorrhoeae, PCR, Urine Culture, Urine, Routine COPD with exacerbation ([facility]) 08/27/2025 Assessment & Plan (08/27/2025 5:15 PM EDT): Nail dystrophy 04/17/2025 Blurry vision 04/17/2025 Chronic prescription opiate use 04/17/2025 Chronic right shoulder pain 04/20/2023 Assessment & Plan (10/16/2024 10:17 AM EST): Patient planning for R shoulder arthroplasty December [address] Jama at [facility] In the interim, I will prescribe oxycodone 5mg twice daily prn until his surgery, at which point Dr Jama will provide post-operative pain medications and we will re-evaluate his shoulder pain and function after that time He is aware of the risks of relapse on IVD with opioid use and agrees to report cravings or relapse and restart methadone at that point Assessment & Plan (07/20/2024 11:07 AM EDT): Seeing Dr Jama for steroid injection next week Will prescribe 30 tablets of Tramadol 50mg at night, discussed risks and benefits of therapy, re-evaluate in 30 days Assessment & Plan (04/20/2023 8:48 PM EDT): Coordinated with Matt, with understanding pt will take oxycodone 5mg twice a day, pending receipt of shoulder surgery Status post left hip replacement 03/01/2023 Assessment & Plan (03/01/2023 2:53 PM EDT): Continue to follow with orthopedics (patient has upcoming appointment) Continue with current pain medication regimen Continue with PT Patient to be switch to ASA 81mg daily after 6 weeks since his surgery Tinea pedis 03/01/2023 Assessment & Plan (03/01/2023 2:53 PM EDT): Maintain area dry and clean Terbinafine 250mg daily for 2 weeks Onychomycosis 03/01/2023 Assessment & Plan (03/01/2023 2:53 PM EDT): Podiatry referral as per patient's request Screening for colon cancer 01/07/2023 Assessment & Plan (07/20/2024 11:07 AM EDT): Due for colon cancer screening, referral to GI Assessment & Plan (01/07/2023 12:59 PM EST): Never done previously Referral placed to GI Low back pain due to bilateral sciatica 01/07/20 Assessment & Plan (01/07/2023 12:58 PM EST): Start Nortriptiline 10mg nightly, can increase by 10mg every 2 weeks as needed up to 30mg This is to help with back pain and trouble sleeping Primary localized osteoarthritis of left hip 07/2023 Assessment & Plan (01/07/2023 12:59 PM EST): Preparing for hip replacement surgery in 1 month We discussed need to attend vigorously to rehab afterwards Request increase in COMMUNICATIONS COORDINATOR hours now Engage son to help him after surgery Essential hypertension 10/29/2022 Assessment & Plan (08/27/2025 5:15 PM EDT): Assessment & Plan (07/20/2024 11:06 AM EDT): Off medications after weight loss and increased exercise Continue to monitor Assessment & Plan (04/20/2023 8:46 PM EDT): At goal Cont Amlodipine Assessment & Plan (03/01/2023 2:57 PM EDT): Patient today did not take his medication for HTN I advise not to miss any dose and f/u with PCP Hyperlipidemia 10/29/2022 Vitamin D deficiency 10/29/2022 Nonimmune to hepatitis B virus 10/29/2022 Chronic obstructive lung disease 10/21/2022 Assessment & Plan (07/20/2024 11:06 AM EDT): Quitting smoking on his own Continue Anoro and MUSA prn Assessment & Plan (04/20/2023 8:46 PM EDT): Quitting smoking on his own Obstructive sleep apnea syndrome 07/15/2022 Osteophyte of right knee 08/06/2020 Overriding toes 07/07/2018 Insomnia 05/23/2018 Assessment & Plan (07/20/2024 11:06 AM EDT): Continue prn melatonin Epigastric pain 05/09/2018 Melena 05/09/2018 Mixed anxiety and depressive disorder 10/14/2015 Assessment & Plan (03/01/2023 2:55 PM EDT): nortryptiline was discontinue and duloxetine 30mg for one week then increase to 60mg was prescribed instead this will treat chronic pain, anxiety and depression F/u with PCP 1 month Opioid dependence in remission (CMS/HCC) 015 Tobacco dependence syndrome 10/14/2015 Intervertebral disc disorder 05/17/2012 Hemorrhoids 05/17/2012 Soft tissue lesion of shoulder region 05/17/2012 Other voice disturbance 11/29/2006 Resolved Problems Problem Noted Date Diagnosed Date Resolved Date 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 07/20/2024 Assessment & Plan (04/20/2023 8:45 PM EDT): A1C at goal Encounters Date Type Department Care Team Description 08/27/2025 1:00 PM EDT Office Visit [facility] [address] [place] [phone] Cinthia Tamayo NP Sore throat (Primary Dx); Essential hypertension; Upper respiratory tract infection, unspecified type; Dysuria; COPD with exacerbation (CMS/HCC) 08/27/2025 Travel 08/20/2025 Orders Only GENERIC EXTERNAL DATA DEPARTMENT Provider, Generic External Data 08/06/2025 Refill [facility] [address] [place] [address] Fabiola Perdue MD Soft tissue lesion of shoulder region 07/20/2025 Telephone [facility] [address] [place] [address] Fabiola Perdue MD No Show 07/19/2025 Telephone [facility] [address] [place] [address] Fabiola Perdue MD Nurse Triage 07/10/2025 Telephone [facility] [address] [place] [address] Fabiola Perdue MD telephone call 07/09/2025 Refill [facility] [address] [place] [address] Destiny Salazar MD Soft tissue lesion of shoulder region 07/09/2025 Telephone [facility] [address] [place] [address] Fabiola Perdue MD Nurse Triage 07/09/2025 Refill [facility] [address] [place] [address] Destiny Salazar MD Soft tissue lesion of shoulder region 07/08/2025 Refill [facility] [address] [place] [address] Fabiola Perdue MD Seasonal allergies 06/21/2025 Telephone [facility] [address] [place] [address] Fabiola Perdue MD Pre-op Exam 05/28/2025 Refill [facility] [address] [place] [address] Fabiola Perdue MD Soft tissue lesion of shoulder region from Last 3 Months Immunizations Immunization Administration Dates Next Due Hep A, Adult 08/21/2008,06/07/2003 Hep B, adult 05/23/2018,08/21/2008,09/27/2007 Tdap 07/02/2022,07/29/2020,08/24/2011 Social History Tobacco Use Types Packs/Day Years Used Date Smoking Tobacco: Every Day Cigarettes Passive Smoke Exposure: Current Smokeless Tobacco: Never Tobacco Cessation:Ready to Q uit: Not Asked; Counseling Given: Not Answered Alcohol Use Standard Drinks/Week Comments Never 0 [...] Orientation Straight 09/28/2022 10 :16 AM EDT Last Filed Vital Signs Vital Sign Reading Time Taken Comments Blood Pressure 158/85 08/27/2025 1:02 PM EDT Pulse 66 08/27/2025 1:02 PM EDT Temperature 36.7 C (98.1 F) 08/27/2025 1:02 PM EDT Respiratory Rate 20 08/27/2025 1:02 PM EDT Oxygen Saturation 96% 08/27/2025 1:02 PM EDT Inhaled Oxygen Concentration - - Weight 92.4 kg (203 lb 12.8 oz) 08/27/2025 1:02 PM EDT Height 180.3 cm (5' 11 ) 04/16/2025 4:14 PM EDT Body Mass Index 28.42 04/16/2025 4:14 PM EDT Plan of Treatment Health Maintenance Due Date Last Done Comments CT Colonography 1964 Colonoscopy 1964 Colorectal Cancer Screening 1964 FIT DNA/Cologuard 1964 FIT 1964 FOBT 1964 Sigmoidoscopy 1964 Disability Screening 1964 Alcohol/Substance Use Screening 1976 Pneumococcal Vaccine: 50+ Years (1 of 2 - PCV) 1983 Zoster Vaccines (1 of 2) 2014 RSV Patients and Patients Aged 60 years or older (1 - Risk 60-74 years 1-dose series) 2024 Depression Screening 07/14/2025 07/14/2024, 07/14/2024 COVID-19 Vaccine (1 - 2023-2 5 season) 2025 Influenza Vaccine (#1) 2025 SDOH Screening 04/09/2026 04/09/2025 Tobacco Screening 04/17/2026 04/17/2025 Lipid Panel 07/14/2029 07/14/2024, 04/06/2022, 12/30/2020 DTaP/Tdap/Td Vaccines (4 - T d or Tdap) 07/02/2032 07/02/2022, 07/29/2020, 08/24/2011 Hepatitis A Vaccines Aged Out 08/21/2008, 06/07/2003 No longer eligible based on patient's age to complete this topic Hepatitis B Vaccines Completed 05/23/2018, 08/21/2008, 09/27/2007 HIV Screening Completed 04/06/2022 Hepatitis C Screening Completed 04/06/2022 HIB Vaccines Aged Out [...] patient's age to complete this topic Meningococcal Vaccine Aged Out No mariana reynaldo eligible based on patient's age to complete this topic RSV under 20 months Aged Out No longe r eligible based on patient's age to complete this topic Rotavirus Vaccines Aged Out No longer eligible based on patient's age to complete this topic Procedures Procedure Name Priority Date/Time Associated Diagnosis Comments BASIC METABOLIC PANEL Routine 08/20/2025 2:18 PM EDT CBC Routine 08/20/2025 2:18 PM EDT MRSA NASAL SCREEN Routine 08/20/2025 1:3 5 PM EDT LIPID PANEL, STANDARD Routine 07/14/2024 3:00 PM EDT Hyperlipidemia, unspecified hyperlipidemia type ZZZ HISTORICAL HEPATITIS C AB W/REFL TO HCV RNA, QN, PCR Routine 04/06/2022 4:18 PM EDT HIV 1/2 ANTIGEN/ANTIBODY, FOURTH GENERATION W/RFL Routine 04/06/2022 4:18 PM EDT from Last 3 Months or Most Recently Relevant to Health Maintenance Results * (ABNORMAL) CBC (08/20/2025 2:18 PM EDT) White Blood Count 8.2 4.8 - 10.8 X10*3/uL [facility] Red Blood Count 4.45(L) 4.60 - 5.80 X10*6/uL [facility] Hemoglobin 13.6(L) 14.0 - 18.0 g/dl [facility] Hematocrit 39.5(L) 42.0 - 52.0 % [facility] Mean Corpuscular Volume 88.8 80.0 - 98.0 fL [facility] Mean Corpuscular Hemoglobin 30.6 27.0 - 33.0 pg [facility] Mean Corpuscular HGB Conc 34.4 31.0 - 36.0 g/dl [facility] Red Cell Distribution Width 13.9 11.0 - 16.0 % [facility] Platelet Count 278 160 - 400 X10*3/uL [facility] Mean Platelet Volume 9.7 9.4 - 12.4 fL [facility] NRBC Pct Auto 0.0 0.0 - 0.2 /100WBC [facility] NRBC Abs Auto 0.000 0.0 - 0.012 X10*3/uL [facility] 08/20/2025 2:18 PM EDT 08/20/2025 2:18 PM EDT us Generic External Data Provider LAB BLOOD ORDERAB LES Final Result [facility] [address] [place] [phone] * (ABNORMAL) Basic Metabolic Panel (08/20/2025 2:18 PM EDT) Sodium 139 135 - 145 mmol/L [facility] Potassium 4.5 3.3 - 5.1 mmol/L [facility] Chloride 105 96 - 108 mmol/L [facility] Carbon Dioxide 30(H) 22 - 29 mmol/L [facility] Anion Gap 9(L) 12 - 20 [facility] Urea Nitrogen (BUN) 16 9 - 16 mg/dL [facility] Creatinine, Serum 0.84 0.5 - 1.4 mg/dL [facility] Creatinine Clr Calc Pharmacy 109.4 [facility] Comment:eGFR (calculated fro m the MDRD study equation) and eCrCl(calculated from the Cockcroft-Gault equation) are based ondifferent parameters and may not yield comparable results.If eCrCl result is absurd, please check patient'sheight/weight. Estimated Glomerular Filt Rate >60 [facility] Comment:Chronic Kidney Disea se: Estimated GFR < 60 mL/min/[id number] Kidney Disease: Estimated GFR < 15 mL/min/1.73m2 Glucose 93 60 - 115 mg/dL [facility] Calcium 8.9 8.4 - 10.2 mg/dL [facility] 08/20/2025 2:18 PM EDT 08/20/2025 2:18 PM EDT Generic External Data Provider LAB BLOOD ORDERAB LES Final Result Performing Organization Address [facility] Co de Phone Number [facility] [address] [place] [phone] * MRSA Nasal Screen (08/20/2025 1:35 PM EDT) MRSA Nasal PCR NEGATIVE Negative [facility] SA Nasal PCR NEGATIVE Negative [facility] MRSA Interpretation SEE NOTE [facility] Comment:MRSA target DNA not detected; SA target DNA not detected.A MRSA NEGATIVE, SA NEGATIVE test result does not precludeMRSA or SA nasal colonization. 08/20/2025 1:35 PM EDT 08/20/2025 2:05 PM EDT Generic External Data Provider LAB MICROBIOLOGY - GENERAL ORDERABLES Final Result Performing Organization Address [facility] de Phone Number [facility] [address] [place] [phone] * Lipid Panel, Standard (07/14/2024 3:00 PM EDT) Triglycerides 91 <150 mg/dL [facility] Comment:Desirable Triglyceri de: less than 150 mg/dLBorderline High Triglyceride 150-199 mg/dLHigh Triglyceride: 200-499 mg/dLVery High Triglyceride: greater than or equal to 5OO mg/dL Cholesterol 144 <200 mg/dL [facility] Comment:Desirable Cholestero l: less than 200 mg/dLBorderline High Cholesterol: 200-239 mg/dLHigh Cholesterol: greater than 239 mg/dL LDL Cholesterol Calculated 77 <100 mg/dL [facility] Comment:Desirable LDL: less than 100 mg/dLNear Optimal/Above Optimal LDL: 110- 129 mg/dLBorderline High LDL: 130-159 mg/dLHigh LDL: 160-189 mg/dLVery High LDL: greater than or equal to 190 mg/dL HDL Cholesterol 49 >40 mg/dL [facility] Comment:Desirable HDL: great er than 40 mg/dL Note: This HDL assay may give artificially low results in patients with liver disease. Blood Venous blood specimen / Unknown 07/14/2024 3:00 PM EDT 07/14/2024 3:59 PM EDT Fabiola Perdue MD LAB BLOOD ORDERABLES Final Res ult [facility] [address] [place] [phone] * (ABNORMAL) HEPATITIS C AB W/REFL TO HCV RNA, QN, PCR (04/06/2022 4:18 PM EDT) HEPATITIS C ANTIBODY REACTIVE( A) NON-REACT JOS[facility] M[facility] INDEX 20.10(H) <1.00 [facility] Comment: Based on this result, the sample will be tested for HCV RNA by a Nucleic Acid Amplification Test (NAAT) to determine if the patient has a current active infection. 04/06/2022 4:18 PM EDT Payal Coughlin LASTING ROOM SUPERVISOR HISTORICAL/NON ORDERABLE LABS Final Result [facility] [address] * HIV 1/2 ANTIGEN/ANTIBODY,FOURTH GENERATION W/RFL (04/06/2022 4:18 PM EDT) HIV-1/2 ANTIGEN AND ANTIBODIES, 4TH GENERATION W/ REFLEX NON-REACT JOSÉ MIGUEL NON-REACT [facility] Comment: HIV-1 antigen and HIV-1/HIV-2 antibodies were not detected. There is no laboratory evidence of HIV infection. PLEASE NOTE: This information has been disclosed to you from records whose confidentiality may be protected by state law. If your state requires such protection, then the state law prohibits you from making any further disclosure of the information without the specific written consent of the person to whom it pertains, or as otherwise permitted by law. A general authorization for the release of medical or other information is NOT sufficient for this purpose. For additional information please refer to http://education.Verivue/faq/OYN891 (This link is being provided for informational/ educational purposes only.) The performance of this assay has not been clinically validated in patients less than 2 years old. 04/06/2022 4:18 PM EDT us Payal Coughlin LASTING ROOM SUPERVISOR LAB BLOOD ORDERABLES Final Res ult [facility] [address] from Last 3 Months or Most Recently Relevant to Health Maintenance Insurance [facility] C[facility] F[facility] Care Teams Rn Nursery Relationship Specialty Start Date End Date Fabiola Perdue MD [address] [place] [phone] PCP - General Family Medicine 12/17/22
--- OUTSIDE RECORDS SUMMARY | 2025-08-27 18:52 | XMS_ITS | Encounter Summary ---
Author Organization [employer] Address [address] [facility] [address] [place] [address] Care Team Providers Care Drill Setup Operator Name Role Phone Fabiola Perdue MD Primary Care Provider [phone] Reason for Visit * Reason Comments Med Refill Encounter Details Date Type Department Care Team ([facility] st Contact Info) Description 04/06/2025 Refill [facility] [address] [place], [place] [phone] Fabiola Perdue MD [address] [place], [place] [phone] Soft tissue lesion of shoulder region Social [...] documented as of this encounter Care Teams Drill Setup Operator Relationship Specialty Start Date End Date Fabiola Perdue MD [address] [place] [phone] PCP - General Family Medicine 12/17/22 documented as of this encounter
[2025-08-28 06:49] LABS: CT PCR Urine NOT DETECTED (Not Detect.); NG PCR Urine NOT DETECTED (Not Detect.)
== END 2025-08-27 18:00 | disposition home or self-care (01) ==
LOC: HO.HHCLNP 17:59
PROVIDERS: Visit Provider Nurse Practitioner Family
DX: Z20.2 Contact with and (suspected) exposure to infections with a predominantly sexual mode of transmission (principal); R30.0 Dysuria
CPT/HCPCS: 87086; 87491; 87591

== ENCOUNTER 2025-11-09 07:22 | Outpatient (REF) | payer MEDICAID, SELFPAY ==
--- NOTE | ~2025-11-09 | CT_ITS ---
EXAMINATION: CT SHOULDER WITHOUT CONTRAST, RIGHT CLINICAL INFORMATION: Primary osteoarthritis shoulder COMPARISON: MRI shoulder 05/19/2025 TECHNIQUE: Axial imaging. Sagittal and coronal reconstructions. This CT examination was performed using dose optimization techniques as appropriate, variously including the following: *Automated exposure control *Adjustment of mA and/or kV according to patient size (this includes techniques or standardized protocols for targeted exams where dose is matched to indication/reason for exam; i.e. extremities or head) *Use of iterative reconstruction technique FINDINGS: Alignment is anatomic. No evidence of acute fracture or dislocation. Severe glenohumeral joint arthritis, characterized by joint space loss, osteophytes, sclerosis. Severe acromioclavicular arthritis. There is bony hypertrophy, with undersurface spurring causing mild mass effect on the underlying tendons. Small corticated ossification along the superior aspect of the joint. No large glenohumeral joint effusion is seen.. Limited evaluation of the tendons on the noncontrast CT. This is better evaluated on the previous MRI. Mild right apical pleuroparenchymal scarring. No suspicious findings in the visualized lung. No axillary lymphadenopathy. CT/CT shoulder RT wo IV con IMPRESSION: * Severe glenohumeral joint arthritis. * Severe acromioclavicular arthritis. Electronically signed by: Edis Meza MD 11/09/2025 02:50 PM [place]
--- OUTSIDE RECORDS SUMMARY | 2025-11-09 07:30 | XMS_ITS | Clinical Summary ---
Author Organization [facility] Address [address] [place] [phone] Phone Care Team Providers Care Automation Consultant Name Role Phone Fabiola Perdue MD Primary Care Provider [phone] Allergies No known active allergies Medications acetaminophen [...] hours if needed for severe pain. Active ketoconazole (NIZORAL) 2 % cream Apply topically 1 (one) time each day. 30 g 2 Active Social History Tobacco Use Types Packs/Day Years Used Date Smoking Tobacco: Never Assessed Sex and Gender Information Value Date Recorded Sex Assigned at Not on file Legal Sex Male 5:29 AM EST Gender Identity Not on file Sexual Orientation Not on file Plan of Treatment Health Maintenance Due Date Last Done Comments Colorectal Cancer Screening: Colonoscopy 1965 Pneumococcal Vaccine: 50+ Years (1 of 2 - PCV) 1983 RSV Immunization Adult Patients (1 - Risk 50-74 years 1-dose series) 2014 Zoster Vaccines (1 of 2) 2014 Depression Screening 11/29/2024 Hepatitis C Screening 04/18/2025 Social Influencers of Health Screening 04/18/2025 COVID-19 Vaccine (1 - 2024-2 6 season) 2025 Influenza Vaccine (#1) 2025 Hypertension/CHF/CAD [...] topic Insurance MEDICAID - [place] Care Teams Automation Consultant Relationship Specialty Start Date End Date Fabiola Perdue MD [address] [place] [address] PCP - General Forensic Medical Examiner 04/17/25
== END 2025-11-09 07:23 | disposition home or self-care (01) ==
LOC: HO.CT 07:22
PROVIDERS: PCP General Practice; Visit Provider Orthopaedic Surgery
DX: M19.011 Primary osteoarthritis, right shoulder (principal)
CPT/HCPCS: 73200

== ENCOUNTER → 2025-11-09 07:24 | Outpatient (BNV) | payer MEDICAID, SELFPAY | PROVIDERS: PCP General Practice; Visit Provider Radiology Diagnostic Ultrasound | DX: M19.011 Primary osteoarthritis, right shoulder (principal) | CPT/HCPCS: 73200 ==

== ENCOUNTER → 2025-11-12 08:58 | Outpatient (BNVA) | payer MEDICAID, SELFPAY | PROVIDERS: PCP General Practice | DX: Z01.818 Encounter for other preprocedural examination (principal) ==

== ENCOUNTER 2025-11-20 14:09 | Outpatient (AMB) | payer MEDICAID, SELFPAY ==
--- OUTSIDE RECORDS SUMMARY | 2025-11-19 09:30 | XMS_ITS | Encounter Summary ---
Author Organization [employer] Address [address] [facility] 7t [place] [address] Care Team Providers Care Solar Energy System Installer Name Role Phone Fabiola Perdue MD Primary Care Provider [phone] Reason for Visit * Reason Comments Pre-op Exam Encounter Details Date Type Department Care Team ([facility] st Contact Info) Description 11/19/2025 9:30 AM EST Office Visit [facility] MEDICINE [address] [place], [place] [phone] Victoria Ha FNP [address] [place], [place] [phone] Social History Tobacco Use Types Packs/Day Years [...] Sign Reading Time Taken Comments Blood Pressure 132/80 11/19/2025 9:19 AM EST Pulse 79 11/19/2025 9:19 AM EST Temperature 36.4 C (97.6 F) 11/19/2025 9:19 AM EST Respiratory Rate 16 11/19/2025 9:19 AM EST Oxygen Saturation 98% 11/19/2025 9:19 AM EST Inhaled Oxygen Concentration - - Weight 95.5 kg (210 lb 9.6 oz) 11/19/2025 9:19 A M EST Height 180.3 cm (5' 11 ) 11/19/2025 9:19 AM EST Body Mass Index 29.37 11/19/2025 9:19 AM EST documented in this encounter Plan of Treatment Upcoming Encounters Date Type Department Care Team (Late st Contact Info) Description 12/31/2025 2:15 PM EST Office Visit [facility] MEDICINE [address] [place] [address] Fabiola Perdue MD [address] [place] [address] documented as of this encounter Visit Diagnoses Not on filedocumented in this encounter Additional Health Concerns Assessment Noted Time PHQ-9 Depression Total Score: 0 07/14/20 24 2:09 PM EDT documented as of this encounter Care Teams Solar Energy System Installer Relationship Specialty Start Date End Date Fabiola Perdue MD [address] [place] [address] PCP - General Family Medicine 12/17/22 documented as of this encounter
[2025-11-20 14:13] VITALS: BP 124/62; PULSE 70; BMI 29.5
--- NOTE | 2025-11-20 14:13 | MHC.OFFVIS ---
Vital Signs 11/20/25 14:13 Height 5 ft 11 in Weight 211 lb 3.245 oz BMI 29.5 BP 124/62 Blood Pressure Location Lt brachial Position Sitting Pulse 70 Pulse Source Monitor Intake Visit Reasons: Pre Op /R SILVA/ Dr Jama Actuarial Mathematician Required: No Accompanied by: Self / Same As Patient Allergies No Known Allergies Allergy (Verified 11/20/25 14:16) Medication List - Last Reconciled 11/20/25 by Mukul Nicolas NP acetaminophen (Tylenol) 650 mg (2 x 325 mg) PO Q6H PRN albuterol sulfate 90 mcg/actuation (Ventolin HFA) 2 puffs inhalation Q6H PRN [Cane As directed] fluticasone propionate 50 mcg/actuation 1 - 2 sprays intranasal DAILY PRN ibuprofen 600 mg PO Q6H PRN 4 days methadone 65 mg PO DAILY omeprazole 20 mg PO DAILY@0630 PRN oxycodone 5 mg PO Q12H PRN umeclidinium-vilanterol 62.5-25 mcg/actuation (Anoro Ellipta) 1 inh inhalation DAILY 30 days walker Folding Front wheeled walker HPI Comments Details: This is a 60-year-old male patient coming in for a preop cardiac risk stratification for an upcoming right shoulder surgery. Patient was previously seen in the office back in 2021 for dizziness and palpitations where patient underwent a Holter study and an echocardiogram with normal finding. Later in March of 2023, patient was in the hospital for chest discomfort where his repeat troponin was elevated and given his presenting symptom of chest pressure with exertion, diaphoresis and nausea, patient was started on IV heparin and was transferred to [facility] for cardiac catheterization however this is not performed because troponins were negative x2 and EKG was stable. They had planned for an outpatient coronary CTA that patient is unsure if he ever followed up after discharge. Patient has not seen any glove operator since that discharge. Patient states that prior to 2021, patient was following with [facility] where they were monitoring his great vessels. Today, patient states that he is here for preop risk stratification only and has been feeling well overall since 2022 without any symptoms of exertional chest pain, shortness of breath, palpitations, dizziness, orthopnea, PND, leg edema, presyncope or syncope. Patient was previously on statin therapy however states that he has discontinued this on his own as he has been feeling well. [facility] Medical History Chest pressure Heart palpitations Essential hypertension Insomnia Hyperlipidemia Chronic prescription opiate use Voice disturbance Tobacco dependence due to cigarettes, in remission Tobacco dependence syndrome Nonimmune to hepatitis B virus Onychomycosis Vitamin D deficiency Back pain Anxiety Depression Polysubstance abuse Osteoarthritis of left knee Methadone use Sleep apnea History of drug abuse Arthritis GERD (gastroesophageal reflux disease) History of kidney stones Hx of hepatitis History of depression COPD (chronic obstructive pulmonary disease) Asthma Primary osteoarthritis of left hip Hypertension Surgical History History of left hip replacement (~2021) History of toe surgery History of laryngoscopy Hx of colonoscopy Family History Father No problems noted. Mother No problems noted. Social History Household Members: Family Housing: Apartment Are you a primary direct care worker to a significant other at home: No Do you presently have visiting nurse or other home services: No Alcohol intake: never Patient Tobacco Use Status: Current everyday Tobacco user Tobacco use type: Cigarette Cigarette Packs Per Day: 0.5 Cigarettes Per Day: 6 Years Smoked: 30 Second Hand Smoke Exposure: No Advance Directives Date on File: 04/05/23 service: No Current occupational status: unemployed Current occupation: Right Handed Review of Systems Const Denies daytime sleepiness, Denies difficulty sleeping, Denies snoring, Denies stops breathing during sleep and Denies weakness Card Denies chest pain, Denies rapid heart rate, Denies irregular heart rhythm, Denies claudication, Denies leg edema, Denies lightheadedness, Denies palpitations, Denies dyspnea, Denies dyspnea on exertion, Denies orthopnea, Denies paroxysmal nocturnal dyspnea and Denies slow heart rate Resp Denies cough, Denies dyspnea, Denies dyspnea on exertion and Denies snoring GI Reports no additional complaints, Denies hematochezia, Denies change in stool character and Denies dyspepsia Musc Denies abnormal gait, Denies muscle weakness and Denies numbness Neuro Denies abnormal gait, Denies numbness and Denies weakness Endo Denies palpitations Physical Exam Vital Signs: Last Vital Signs Pulse 70 11/20/25 14:13 BP 124/62 11/20/25 14:13 BMI result Body Mass Index 29.5 Const General: cooperative, healthy appearing, comfortable and no acute distress Orientation/consciousness: patient oriented x3 HEENT Head: Yes normal to inspection Neck Neck: Yes normal visual inspection, Yes trachea midline and Yes supple Chest Chest palpation & inspection: normal inspection of the chest Resp Effort & Inspection: normal respiratory effort Auscultation: clear to auscultation bilaterally, no crackles, no rales, no rhonchi and no wheezes Cardio Jugular venous distension: no JVD Palpation: normal PMI Rate: regular rate Rhythm: regular rhythm Heart sounds: S1 normal heart sound present, S2 normal heart sound present, no click, no gallops, no murmurs and no rubs Peripheral pulses: Peripheral pulses 2+ throughout GI Inspection: Yes normal to inspection Palpation (GI): Soft to palpation Auscultation: normal bowel sounds Skin General skin exam: no rashes or lesions noted Neuro General: patient oriented x3 Extrem General: Yes normal to inspection, No no pedal edema and No calf tenderness Psych Appearance: grossly normal Mental Status: mental status grossly normal Speech and movement: Normal speech and movement present Office Procedures EKG Details: EKG today showed normal sinus rhythm, rate 70 beats per minute, nonsignificant ST, [place], [place]. [address]-Brucpgiseqfehbvug, Complete Assessment & Plan Assessment & Plan (1) Preop cardiovascular exam: Code(s): Z01.810 - Encounter for preprocedural cardiovascular examination Category: Medical (2) Acute coronary syndrome: Code(s): I24.9 - Acute ischemic heart disease, unspecified Category: Medical Plan 08/07/2022-Holter study showed underlying sinus rhythm with rare PACs. Echo study showed a normal LV systolic function with the ejection fraction between 60-65%, abnormal diastolic dysfunction. 10/06/2022-patient had undergone a pharmacologic myocardial perfusion study that showed normal perfusion. 04/03/2023-chest CTA showed no coronary artery calcification. In March of 2023, patient had presented with chest discomfort radiating to his neck with shortness of breath when mowing his lawn. This subsided after resting then later again when he went out to do more, patient felt dizzy short of breath and diaphoretic and was brought in to the emergency room where his initial troponin was negative however repeat troponin was elevated and therefore was started on heparin and transferred to [facility] where patient did not undergo a cardiac catheterization given 2- troponins there. They had planned for a coronary CTA outpatient however patient never followed up since then. Even though asymptomatic currently, given the above episode, no follow up, and not being currently on statin therapy as prescribed, patient will need to undergo ischemic workup prior to his surgery. We will get an echocardiogram to look for LV systolic and diastolic dysfunction as well as for wall motion abnormality. Patient will also undergo a stress myocardial perfusion to check for ischemic disease. Patient is no longer on statin therapy for unclear reasons and therefore we will get a lipid profile. If lipid profile is significantly elevated, we can plan for a coronary calcium score. Patient verbalized understanding of the spine. Further interventions based on findings. Advised on heart healthy diet, regular exercise, smoking cessation, med compliance, and aggressive management of vascular risk factors. Follow up after testings. We will make an addendum to this note after testings in regards to preop cardiac risk stratification. In the interim, patient will call the office with any concerns or change in symptoms. This note was generated using voice recognition software. While every effort has been made to ensure accuracy and proper disc pad plate filler, there may be occasional errors that could affect the content or meaning of the described symptoms. Orders: Orders CA stress test 2 Weeks I24.9 - Acute ischemic heart disease, unspecified, Z01.810 - Encounter for preprocedural cardiovascular examination Lipid Panel Today I10 - Essential (primary) hypertension NM cardiolite stress test 2 Weeks I24.9 - Acute ischemic heart disease, unspecified, Z01.810 - Encounter for preprocedural cardiovascular examination CA echo transthoracic complete 2 Weeks Z.810 - Encounter for preprocedural cardiovascular examination AMB EKG-In Office Today Z01.810 - Encounter for preprocedural cardiovascular examination Coding Level of Care Code Est Pt Level 4 (47001) Add On Problem Visit Only Diagnoses Preop cardiovascular exam Z01.810 Acute coronary syndrome I24.9 CPT Codes EKG - CPT: 11568-Fmzvllvsviwcbnyrt, Complete ([id number]) Time Spent (min) 32 Comment Time spent in reviewing the chart, test results, assessment, counseling and documentation.
--- OUTSIDE RECORDS SUMMARY | 2025-11-20 15:25 | XMS_ITS | Encounter Summary ---
Author Organization [employer] Address [address] [facility] [address] [place] [address] Care Team Providers Care Lead Software Qa Engineer Name Role Phone Fabiola Perdue MD Primary Care Provider [phone] Encounter Details Date Type Department Care Team (Late st Contact Info) Description 10/10/2025 Orders Only [facility] MEDICINE [address] [place], [place] [phone] Fabiola Perdue MD [address] [place], [place] [phone] Soft tissue lesion of shoulder region (Primary [...] as of this encounter Plan of Treatment Upcoming Encounters Date Type Department Care Team (Late st Contact Info) Description 12/31/2025 2:15 PM EST Office Visit [facility] MEDICINE [address] [place] [address] Fabiola Perdue MD [address] [place] [address] documented as of this encounter Procedures Procedure Name Priority Date/Time Associated Diagnosis Comments CT SHOULDER WO CONTRAST RIGHT Routine 11/09/2025 7:29 AM EST documented in this encounter Results * CT Shoulder w/o Contrast Right (11/09/2025 7:29 AM EST) Anatomical Region Laterality Modality Upper Extremities, Shoulder Right Comp uted Tomography 11/09/2025 7:29 AM EST Narrative 11/09/2025 2:53 PM EST [address] [address] [address] Scan Report Signed Patient: Amaury Bermeo MR#: [id number] : 1965 Acct:[id number] Age/Sex: 60 / M ADM Date: 11/09/25 Loc: HO.CT Attending Dr: Aureliano Jama MD Ordering Physician: Aureliano Jama MD Date of Service: 11/09/25 Procedure(s): CT shoulder RT wo IV con Accession Number(s): [id number] cc: Aureliano Jama MD; Fabiola Perdue Report Number: [id number]: Total DLP = 474.00 mGy-cm Reason for Exam: M19.011 - Primary osteoarthritis, right shoulder EXAMINATION: CT SHOULDER WITHOUT CONTRAST, RIGHT CLINICAL INFORMATION: Primary osteoarthritis shoulder COMPARISON: MRI shoulder 05/19/2025 TECHNIQUE: Axial imaging. Sagittal and coronal reconstructions. This CT examination was performed using dose optimization techniques as appropriate, variously including the following: *Automated exposure control *Adjustment of mA and/or kV according to patient size (this includes techniques or standardized protocols for targeted exams where dose is matched to indication/reason for exam; i.e. extremities or head) *Use of iterative reconstruction technique FINDINGS: Alignment is anatomic. No evidence of acute fracture or dislocation. Severe glenohumeral joint arthritis, characterized by joint space loss, osteophytes, sclerosis. Severe acromioclavicular arthritis. There is bony hypertrophy, with undersurface spurring causing mild mass effect on the underlying tendons. Small corticated ossification along the superior aspect of the joint. No large glenohumeral joint effusion is seen.. Limited evaluation of the tendons on the noncontrast CT. This is better evaluated on the previous MRI. Mild right apical pleuroparenchymal scarring. No suspicious findings in the visualized lung. No axillary lymphadenopathy. CT/CT shoulder RT wo IV con IMPRESSION: * Severe glenohumeral joint arthritis. * Severe acromioclavicular arthritis. Electronically signed by: Edis Meza MD 11/09/2025 02:50 PM [facility] Dictated By: Edis Meza MD Signed By: <Electronically signed by Edis Meza MD in OV> 11/09/25 1450 DD/ 0729 TD/TT: 11/09/25 0742 Color Developer: MARIANO Procedure Note Donotuseinterpreter, Image - 11/09/[address] [address] [address] Scan Report Signed Patient: Fabien Bermeo#: [id number] : 1965Acct:[id number] Age/Sex: 60 / MADM Date: 11/09/25 Loc: HO.CT Attending Dr: Aureliano Jama MD Ordering Physician: Aureliano Jama MD Date of Service: 11/09/25 Procedure(s): CT shoulder RT wo IV con Accession Number(s): [id number] cc: Aureliano Jama MD; Fabiola Perdue Report Number: [id number]: Total DLP = 474.00 mGy-cm Reason for Exam: M19.011 - Primary osteoarthritis, right shoulder EXAMINATION: CT SHOULDER WITHOUT CONTRAST, RIGHT CLINICAL INFORMATION: Primary osteoarthritis shoulder COMPARISON: MRI shoulder 05/19/2025 TECHNIQUE: Axial imaging. Sagittal and coronal reconstructions. This CT examination was performed using dose optimization techniques as appropriate, variously including the following: *Automated exposure control *Adjustment of mA and/or kV according to patient size (this includes techniques or standardized protocols for targeted exams where dose is matched to indication/reason for exam; i.e. extremities or head) *Use of iterative reconstruction technique FINDINGS: Alignment is anatomic. No evidence of acute fracture or dislocation. Severe glenohumeral joint arthritis, characterized by joint space loss, osteophytes, sclerosis. Severe acromioclavicular arthritis. There is bony hypertrophy, with undersurface spurring causing mild mass effect on the underlying tendons. Small corticated ossification along the superior aspect of the joint. No large glenohumeral joint effusion is seen.. Limited evaluation of the tendons on the noncontrast CT. This is better evaluated on the previous MRI. Mild right apical pleuroparenchymal scarring. No suspicious findings in the visualized lung. No axillary lymphadenopathy. CT/CT shoulder RT wo IV con IMPRESSION: * Severe glenohumeral joint arthritis. * Severe acromioclavicular arthritis. Electronically signed by: Edis Meza MD 11/09/2025 02:50 PM [facility] Dictated By: Edis Meza MD Signed By: <Electronically signed by Edis Meza MD in OV> 11/09/25 9860 DD/ 0729 TD/TT: 11/09/25 0742 Color Developer: MARIANO [facility] External Provider IMG CT PROCEDURES Final Result documented in this encounter Visit Diagnoses Diagnosis Soft tissue lesion of shoulder region- Primary documented in this encounter Additional Health Concerns Assessment Noted Time PHQ-9 Depression Total Score: 0 07/14/20 24 2:09 PM EDT documented as of this encounter Care Teams Lead Software Qa Engineer Relationship Specialty Start Date End Date Fabiola Perdue MD [address] [place] [address] PCP - General Family Medicine 12/17/22 documented as of this encounter
--- OUTSIDE RECORDS SUMMARY | 2025-11-20 15:25 | XMS_ITS | Encounter Summary ---
Author Organization [email or web address] [facility] Address [address] [place] [address] 7t [place] [address] Care Team Providers Care Hydraulic Plumber Name Role Phone Fabiola Perdue MD Primary Care Provider [phone] Encounter Details Date Type Department Care Team (Late Contact Info) Description 05/05/2023 Orders Only [facility] MEDICINE [address] [place], [place] [phone] Fabiola Perdue MD [address] [place], [place] [phone] Chronic right shoulder pain (Primary Dx) Social [...] Encounters Date Type Department Care Team (Late Contact Info) Description 12/31/2025 2:15 PM EST Office Visit [facility] MEDICINE [address] [place] [address] Fabiola Perdue MD [address] [place] [address] documented as of this encounter Visit Diagnoses Diagnosis Chronic right shoulder pain- Primary Pain in joint, shoulder region documented in this encounter Additional Health Concerns Assessment Noted Time PHQ-9 Depression Total Score: 0 01/06/20 3:59 PM EST documented as of this encounter Care Teams Hydraulic Plumber Relationship Specialty Start Date End Date Fabiola Perdue MD [address] [place] [address] PCP - General Family Medicine 12/17/22 documented as of this encounter
--- OUTSIDE RECORDS SUMMARY | 2025-11-20 15:25 | XMS_ITS | Encounter Summary ---
Author Organization [employer] Address [address] [facility] 7t [place] [address] Care Team Providers Care Procurement Professional Logistics Name Role Phone Fabiola Perdue MD Primary Care Provider [phone] Reason for Visit * Reason Comments Med Refill Encounter Details Date Type Department Care Team ([facility] st Contact Info) Description 10/05/2025 Refill [facility] MEDICINE [address] [place], [place] [phone] Fabiola Perdue MD [address] [place], [place] [phone] Soft tissue lesion of shoulder region Social [...] encounter Miscellaneous Notes * Telephone Encounter - Bernadette Richmond RN - 10/05/2025 3:40 PM EST TC to [facility] # [phone] Dr Jama's office, spoke with Margaret medical or surgical instrument maker. Margaret stated that patient has missed every single clearance appointment scheduled for his surgery and was moved to the end of the line for an appointment due to this. Office stated they have called him multipletimes and he has not returned their calls. Tentatively, if patient was to complete all of his appointments for clearance, the soonest would likely be sometime in December, but as of now, he has not completed any of the necessary appts. * Telephone Encounter - Fabiola Perdue MD - 10/05/2025 3:[address] Jama at [facility]-- can you please call that office and inquire as to surgical date? Ty! * Telephone Encounter - Bernadette Richmond RN - 10/05/2025 2:09 PM EST TC via P/I#[id number] Matute stated his surgery was postponed by the orthopedic office and that's why he didn't come to his Preop appointment scheduled with Dr Strickland 08/17/25. Pt stated he does not knowwhy it was postponed. TC to Ortho Surgery @ [phone], office stated pt is seeing Dr Maza for his toe nails, no surgery pending. documented in this encounter Plan of Treatment Upcoming Encounters Date Type Department Care Team (Late st Contact Info) Description 12/31/2025 2:15 PM EST Office Visit [facility] MEDICINE [address] [place] [phone] Fabiola Perdue MD [address] [place] [phone] documented as of this encounter Visit Diagnoses Diagnosis Soft tissue lesion of shoulder region documented in this encounter Additional Health Concerns Assessment Noted Time PHQ-9 Depression Total Score: 0 07/14/20 24 2:09 PM EDT documented as of this encounter Care Teams Procurement Professional Logistics Relationship Specialty Start Date End Date Fabiola Perdue MD [address] [place] [phone] PCP - General Family Medicine 12/17/22 documented as of this encounter
--- OUTSIDE RECORDS SUMMARY | 2025-11-20 15:25 | XMS_ITS | Encounter Summary ---
Author Organization [employer] Address [address] [facility] [address] [place] [address] Care Team Providers Care Seed Potato Cutter Name Role Phone Fabiola Perdue MD Primary Care Provider [phone] Encounter Details Date Type Department Care Team (Latest Contact Info) Description 11/19/2025 Travel Social History Tobacco Use Types Packs/Day [...] 2:15 PM EST Office Visit [facility] MEDICINE [address] [place] [address] Fabiola Perdue MD [address] [place] [address] documented as of this encounter Visit Diagnoses Not on filedocumented in this encounter Additional Health Concerns Assessment Noted Time PHQ-9 Depression Total Score: 0 07/14/20 24 2:09 PM EDT documented as of this encounter Care Teams Seed Potato Cutter Relationship Specialty Start Date End Date Fabiola Perdue MD [address] [place], [place] [phone] PCP - General Family Medicine 12/17/22 documented as of this encounter
--- OUTSIDE RECORDS SUMMARY | 2025-11-20 15:25 | XMS_ITS | Encounter Summary ---
Author Organization [employer] Address [address] [facility] 7t [place] [address] Care Team Providers Care Clinic Clerk Name Role Phone Fabiola Perdue MD Primary Care Provider [phone] Reason for Visit * Reason Comments Med Refill Encounter Details Date Type Department Care Team ([facility] st Contact Info) Description 11/05/2025 Refill [facility] MEDICINE [address] [place], [place] [phone] Fabiola Perdue MD [address] [place], [place] [phone] Soft tissue lesion of shoulder region Social [...] 2:15 PM EST Office Visit [facility] MEDICINE [address] [place] [phone] Fabiola Perdue MD [address] [place] [address] documented as of this encounter Visit Diagnoses Diagnosis Soft tissue lesion of shoulder region documented in this encounter Additional Health Concerns Assessment Noted Time PHQ-9 Depression Total Score: 0 07/14/20 24 2:09 PM EDT documented as of this encounter Care Teams Clinic Clerk Relationship Specialty Start Date End Date Fabiola Perdue MD [address] [place] [address] PCP - General Family Medicine 12/17/22 documented as of this encounter
--- OUTSIDE RECORDS SUMMARY | 2025-11-20 15:25 | XMS_ITS | Encounter Summary ---
Author Organization [employer] Address [address] [facility] 7t [place] [address] Care Team Providers Care Cake Inspector Name Role Phone Fabiola Perdue MD Primary Care Provider [phone] Reason for Visit * Reason Onset Date Comments Nurse Triage 09/22/2024 Encounter Details Date Type Department Care Team ([facility] st Contact Info) Description 09/22/[address] [facility] [address] [place], [place] [phone] Fabiola Perdue MD [address] [place], [place] [phone] Nurse Triage Social History Tobacco Use Types [...] Reason: Caller denied all higher acuity questions Dutch Speaker documented in this encounter Plan of Treatment Upcoming Encounters Date Type Department Care Team (Late st Contact Info) Description 12/31/2025 2:15 PM EST Office Visit [facility] [address] [place] [address] Fabiola Perdue MD [address] [place] [address] documented as of this encounter Visit Diagnoses Not on filedocumented in this encounter Additional Health Concerns Assessment Noted Time PHQ-9 Depression Total Score: 0 07/14/20 24 2:09 PM EDT documented as of this encounter Care Teams Cake Inspector Relationship Specialty Start Date End Date Fabiola Perdue MD [address] [place] [address] PCP - General Family Medicine 12/17/22 documented as of this encounter
--- OUTSIDE RECORDS SUMMARY | 2025-11-20 15:25 | XMS_ITS | Clinical Summary ---
Author Organization [facility] Address [address] [place] [phone] Phone Care Team Providers Care Timber Trimmer Name Role Phone Fabiola Perdue MD Primary Care Provider [phone] Allergies No known active allergies Medications acetaminophen [...] topic Insurance MEDICAID - [place] Care Teams Timber Trimmer Relationship Specialty Start Date End Date Fabiola Perdue MD [address] [place] [address] PCP - General Vending Machine Repairer 04/17/25
--- OUTSIDE RECORDS SUMMARY | 2025-11-20 15:25 | XMS_ITS | Encounter Summary ---
Author Organization [employer] Address [address] 7[address] [place] [address] Care Team Providers Care Alliance Consultant Name Role Phone Fabiola Perdue MD Primary Care Provider [phone] Encounter Details Date Type Department Care Team (Late st Contact Info) Description 09/22/2024 Orders Only [facility] [address] [place], [place] [phone] Faboila Perdue MD [address] [place], [place] [phone] Chronic right shoulder pain (Primary Dx) Social [...] Description 12/31/2025 2:15 PM EST Office Visit [facility] [address] [place] [phone] Fabiola Perdue MD [address] [place] [phone] documented as of this encounter Visit Diagnoses Diagnosis Chronic right shoulder pain- Primary Pain in joint, shoulder region documented in this encounter Additional Health Concerns Assessment Noted Time PHQ-9 Depression Total Score: 0 07/14/20 24 2:09 PM EDT documented as of this encounter Care Teams Alliance Consultant Relationship Specialty Start Date End Date Fabiola Perdue MD [address] [place] [phone] PCP - General Family Medicine 12/17/22 documented as of this encounter
--- OUTSIDE RECORDS SUMMARY | 2025-11-20 15:25 | XMS_ITS | Encounter Summary ---
Author Organization [employer] Address [address] [facility] 7t [place] [address] Care Team Providers Care Parks Worker Name Role Phone Fabiola Perdue MD Primary Care Provider [phone] Reason for Visit * Reason Onset Date Comments Med Refill 12/08/2024 Encounter Details Date Type Department Care Team ([facility] st Contact Info) Description 12/08/2024 Refill [facility] [address] [place], [place] [phone] Fabiola Perdue MD [address] [place], [place] [phone] Social History Tobacco Use Types Packs/Day Years [...] Description 12/31/2025 2:15 PM EST Office Visit [facility] [address] [place] [address] Fabiola Perdue MD [address] [place] [address] documented as of this encounter Visit Diagnoses Not on filedocumented in this encounter Additional Health Concerns Assessment Noted Time PHQ-9 Depression Total Score: 0 07/14/20 24 2:09 PM EDT documented as of this encounter Care Teams Parks Worker Relationship Specialty Start Date End Date Fabiola Perdue MD [address] [place] [phone] PCP - General Family Medicine 12/17/22 documented as of this encounter
--- OUTSIDE RECORDS SUMMARY | 2025-11-20 15:25 | XMS_ITS | Encounter Summary ---
Author Organization [employer] Address [address] [facility] 7t [place] [address] Care Team Providers Care Auto Carrier Driver Name Role Phone Fabiola Perdue MD Primary Care Provider [phone] Reason for Visit * Reason Comments Med Refill Encounter Details Date Type Department Care Team ([facility] st Contact Info) Description 04/06/2025 Refill [facility] [address] [place], [place] [phone] Fabiola Perdue MD [address] [place], [place] [phone] Soft tissue lesion of shoulder region Social [...] Description 12/31/2025 2:15 PM EST Office Visit [facility] [address] [place] [phone] Fabiola Perdue MD [address] [place] [address] documented as of this encounter Visit Diagnoses Diagnosis Soft tissue lesion of shoulder region documented in this encounter Additional Health Concerns Assessment Noted Time PHQ-9 Depression Total Score: 0 07/14/20 24 2:09 PM EDT documented as of this encounter Care Teams Auto Carrier Driver Relationship Specialty Start Date End Date Fabiola Perdue MD [address] [place] [phone] PCP - General Family Medicine 12/17/22 documented as of this encounter
--- OUTSIDE RECORDS SUMMARY | 2025-11-20 15:25 | XMS_ITS | Encounter Summary ---
Author Organization [employer] Address [address] [facility] [address] [place] [address] Care Team Providers Care Urban Gardening Specialist Name Role Phone Fabiola Perdue MD Primary Care Provider [phone] Encounter Details Date Type Department Care Team (Late st Contact Info) Description 12/07/2024 Orders Only [facility] [address] [place], [place] [phone] Fabiola Perdue MD [address] [place], [place] [phone] Soft tissue lesion of shoulder region (Primary [...] Description 12/31/2025 2:15 PM EST Office Visit [facility] [address] [place] [phone] Fabiola Perdue MD [address] [place] [phone] documented as of this encounter Visit Diagnoses Diagnosis Soft tissue lesion of shoulder region- Primary documented in this encounter Additional Health Concerns Assessment Noted Time PHQ-9 Depression Total Score: 0 07/14/20 24 2:09 PM EDT documented as of this encounter Care Teams Urban Gardening Specialist Relationship Specialty Start Date End Date Fabiola Perdue MD [address] [place] [phone] PCP - General Family Medicine 12/17/22 documented as of this encounter
--- OUTSIDE RECORDS SUMMARY | 2025-11-20 15:25 | XMS_ITS | Encounter Summary ---
Author Organization [facility] Address [address] [place] [address] [address] [place] [address] Care Team Providers Care Machine Maintenance Name Role Phone Fabiola Perdue MD Primary Care Provider [phone] Reason for Visit * Reason Onset Date Comments Nurse Triage 06/23/2023 Encounter Details Date Type Department Care Team ([facility] st Contact Info) Description 06/23/2023 Telephone [facility] [address] [place], [place] [phone] Fabiola Perdue MD [address] [place], [place] [phone] Nurse Triage Social History Tobacco Use Types [...] and goes. Advised Pt to come to [facility] today , opened until 8pm andPt agreed [...] - You become worse Triage call with [employer] Intern [place] [id number] Pt didn't answer. Left voice message to call [facility] triage line [phone] * Telephone Encounter - Maira Sheriff - 06/23/2023 11:13 AM EDT Symptoms: Abdominal Pain - Male, Back Pain - Not From Injury Outcome: Schedule an urgent appointment (within 4 hours) or talk to a nurse or provider soon Reason: Getting worse The caller accepted this outcome Please contact pt at [phone] (Azeri) documented in this encounter Plan of Treatment Upcoming Encounters Date Type Department Care Team (Late st Contact Info) Description 12/31/2025 2:15 PM EST Office Visit [facility] [address] [place] [address] Fabiola Perdue MD [address] [place] [address] documented as of this encounter Visit Diagnoses Not on filedocumented in this encounter Additional Health Concerns Assessment Noted Time PHQ-9 Depression Total Score: 0 01/06/20 23 3:59 PM EST documented as of this encounter Care Teams Machine Maintenance Relationship Specialty Start Date End Date Fabiola Perdue MD [address] [place], [place] [phone] PCP - General Family Medicine 12/17/22 documented as of this encounter
--- OUTSIDE RECORDS SUMMARY | 2025-11-20 15:25 | XMS_ITS | Clinical Summary ---
Author Organization [employer] Address [address] [facility] 7t [place] [address] Care Team Providers Care Cigar Inspector Name Role Phone Fabiola Perdue MD Primary Care Provider [phone] Allergies No known active allergies Medications meclizine (Antivert) 25 MG tabletIndicatio ns:Vertigo take 1 tablet by oral route 3 times every day as needed 90 tablet 3 01/05/20 23 Active Blood Pressure Monitoring (Omron 3 Series BP Monitor) device 1 each in the morning. Check BP as directed 1 each 04/16/20 23 Active amLODIPine (Norvasc) 10 MG tabletIndicatio ns:Essential hypertension Take 1 tablet (10 mg) by mouth Once per day. 90 tablet 3 04/03/20 24 Active albuterol (Ventolin HFA) 108 (90 Base) MCG/ACT inhalerIndicati ons:Chronic obstructive pulmonary disease, unspecified COPD type (CMS/HCC) ([facility]) Inhale 2 puffs every 6 (six) hours if needed for wheezing. 18 g 11 07/14/20 24 Active melatonin 5 MG tabletIndicatio ns:Primary insomnia Take 1 tablet (5 mg) by mouth at bedtime. 90 tablet 3 07/14/20 24 Active albuterol (2.5 MG/3ML) 0.083% nebulizer solutionIndicat ions:Chronic obstructive pulmonary disease, unspecified COPD type (CMS/HCC) (HCC) INHALE 1 AMPULE USING A NEBULIZER THREE TIMES DAILY 90 mL 3 09/22/20 24 Active acetaminophen (Tylenol) 325 MG tabletIndicatio ns:Chronic right shoulder pain TAKE 2 TABLETS BY MOUTH EVERY 6 HOURS NEEDED FOR PAIN OR FEVER 12/27/20 24 Active ibuprofen 600 MG tabletIndicatio ns:Chronic right shoulder pain TAKE 1 TABLET BY MOUTH EVERY 6 HOURS NEEDED FOR PAIN OR FEVER FOR 4 DAYS 11/24/20 24 Active cetirizine (ZyrTEC) 10 MG tabletIndicatio ns:Seasonal allergies Take 1 tablet (10 mg) by mouth Once per day. 90 tablet 3 04/16/20 25 026 Active fluticasone (Flonase) 50 MCG/ACT nasal sprayIndication s:Seasonal allergies INSTILL 1-2 SPRAYS IN EACH NOSTRIL ONCE DAILY 48 g 07/09/20 25 Active nicotine (Nicoderm CQ) 21 MG/24HR patch Place 1 patch on the skin 1 (one) time each day at the same time. 30 patch 08/27/20 25 Active Anoro Ellipta 62.5-25 MCG/ACT aerosol powderIndicatio ns:Chronic obstructive pulmonary disease, unspecified COPD type (CMS/HCC) (HCC) INHALE 1 PUFF BY MOUTH EVERY DAY AT THE SAME TIME 60 each 11 09/12/20 25 Active omeprazole (PriLOSEC) [address] capsule TAKE 1 CAPSULE BY MOUTH ONE OR TWO TIMES DAILY NEEDED FOR ABDOMINAL PAIN. 180 capsule 1 5 12:36 PM EST 10/01/20 25 Active oxyCODONE (Roxicodone) 5 MG immediate release tabletIndicatio ns:Soft tissue lesion of shoulder region Take 1 tablet (5 mg) by mouth every 12 (twelve) hours if needed for severe pain for up to 28 days. Do not start before November 07, 2025. 56 tablet 5 10:50 AM EST 11/07/20 25 026 Active oxyCODONE (Roxicodone) 5 MG immediate release tabletIndicatio ns:Soft tissue lesion of shoulder region Take 1 tablet (5 mg) by mouth every 12 (twelve) hours if needed for severe pain for up to 28 days. 56 tablet 5 12:36 PM EST 10/10/20 25 025 Discontinued(Re order (will not trigger notification to Pharmacy)) Active Problems Problem Noted Date Diagnosed Date Upper respiratory tract infection 08/27/2025 Assessment & Plan (08/27/2025 5:15 PM EDT): Sore throat 08/27/2025 Assessment & Plan (08/27/2025 5:15 PM EDT): Dysuria 08/27/2025 Assessment & Plan (08/27/2025 5:15 PM EDT): Orders: Chlamydia/N. 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 Engage son to help him [...] PCP 1 month Opioid dependence in remission ([facility]) 015 Tobacco dependence syndrome 10/14/2015 Intervertebral disc disorder 05/17/2012 Hemorrhoids 05/17/2012 Soft tissue lesion of shoulder region 05/17/2012 Other voice disturbance 11/29/2006 Resolved Problems Problem Noted Date Diagnosed Date Resolved Date 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 07/20/2024 Assessment & Plan (04/20/2023 8:45 PM EDT): A1C at goal Encounters Date Type Department Care Team Description 11/20/2025 Orders Only GENERIC EXTERNAL DATA DEPARTMENT Provider, Generic External Data 11/19/2025 9:30 AM EST Office Visit [facility] [address] [place] [address] Victoria Ha FNP 11/19/2025 Travel 11/05/2025 Refill [facility] [address] [place] [address] Fabiola Perdue MD Soft tissue lesion of shoulder region 11/05/2025 Refill [facility] [address] [place] [address] Fabiola Perdue MD Soft tissue lesion of shoulder region 10/10/2025 Orders Only [facility] [address] [place] [address] Fabiola Perdue MD Soft tissue lesion of shoulder region (Primary Dx) 10/09/2025 Refill [facility] [address] [place] [address] Fabiola Perdue MD Chronic right shoulder pain (Primary Dx) 10/05/2025 Telephone [facility] [address] [place] [address] Fabiola Perdue MD Med Refill 10/05/2025 Refill [facility] [address] [place] [address] Fabiola Perdue MD Soft tissue lesion of shoulder region 09/30/2025 Refill [facility] [address] [place] [address] Fabiola Perdue MD 09/12/2025 Refill [facility] [address] [place] [address] Fabiola Perdue MD Chronic obstructive pulmonary disease, unspecified COPD type (CMS/HCC) (HCC) 09/05/2025 Refill [facility] [address] [place] [address] Destiny Salazar MD Soft tissue lesion of shoulder region 08/28/2025 Results Follow-Up [facility] [address] [place] [address] Vanda Weber RN Chlamydia/N. Gonorrhoeae, PCR, Urine, Culture, Urine, Routine 08/27/2025 1:00 PM EDT Office Visit [facility] [address] [place] [phone] Cinthia Tamayo, DEMARCO Sore throat (Primary Dx); Essential hypertension; Upper respiratory tract infection, unspecified type; Dysuria; COPD with exacerbation ([facility]/HCC) 08/27/2025 Travel from Last 3 Months Immunizations Immunization Administration [...] Mass Index 29.37 11/19/2025 9:19 AM EST Plan of Treatment Upcoming Encounters Date Type Department Care Team (Late st Contact Info) Description 12/31/2025 2:15 PM EST Office Visit [facility] [address] [place] [address] Fabiola Perdue MD [address] [place] [address] Health Maintenance Due Date Last Done Comments CT Colonography 1965 Colonoscopy 1965 Colorectal Cancer Screening 1965 FIT DNA/Cologuard 1965 FIT 1965 FOBT 1965 Sigmoidoscopy 1965 Disability Screening 1964 Alcohol/Substance Use Screening 1976 Pneumococcal Vaccine: 50+ Years (1 of 2 - PCV) 1983 RSV Patients and Patients Aged 60 years or older (1 - Risk 50-74 years 1-dose series) 2014 Zoster Vaccines (1 of 2) 2014 Depression Screening 07/14/2025 07/14/2024, 07/14/2024 COVID-19 Vaccine (1 - 2024-2 6 season) 2025 Influenza Vaccine (#1) 2025 SDOH Screening 04/09/2026 04/09/2025 Tobacco Screening 11/19/2026 11/19/2025 Lipid Panel 07/14/2029 07/14/2024, 04/06/2022, 12/30/2020 DTaP/Tdap/Td [...] Procedure Name Priority Date/Time Associated Diagnosis Comments MRSA NASAL SCREEN Routine 11/20/2025 10: [address] SHOULDER WO CONTRAST RIGHT Routine 11/09/2025 7:29 AM EST CHLAMYDIA/TRICHOMON /NEISSERIA GONORRHOEAE, PCR, URINE Routine 08/27/2025 1:18 PM EDT Dysuria CULTURE, URINE, ROUTINE Routine 08/27/2025 1:18 PM EDT Dysuria LIPID PANEL, STANDARD Routine 07/14/2024 3:00 PM EDT Hyperlipidemia, unspecified hyperlipidemia type ZZZ HISTORICAL HEPATITIS C AB W/REFL TO HCV RNA, QN, PCR Routine 04/06/2022 4:18 PM EDT HIV 1/2 ANTIGEN/ANTIBODY, FOURTH GENERATION W/RFL Routine 04/06/2022 4:18 PM EDT from Last 3 Months or Most Recently Relevant to Health Maintenance Results * MRSA Nasal Screen (11/20/2025 10:00 AM EST) MRSA Nasal PCR NEGATIVE Negative [facility] SA Nasal PCR NEGATIVE Negative [facility] MRSA Interpretation SEE NOTE [facility] Comment:MRSA target DNA not detected; SA target DNA not detected.A MRSA NEGATIVE, SA NEGATIVE test result does not precludeMRSA or SA nasal colonization. 11/20/2025 10:0 0 AM EST 11/20/2025 10:29 AM EST us Generic External Data Provider LAB MICROBIOLOGY - GENERAL ORDERABLES Final Result Performing Organization Address City/State/[facility] Co de Phone Number [facility] [address] [place] [phone] * CT Shoulder w/o Contrast Right (11/09/2025 7:29 AM EST) Anatomical Region Laterality Modality Upper Extremities, Shoulder Right Comp uted Tomography 11/09/2025 7:29 AM EST Narrative 11/09/2025 2:53 PM EST [address] [address] [address] Scan Report Signed Patient: Amuary Bermeo MR#: [id number] : 1965 Acct:[id number] Age/Sex: 60 / M ADM Date: 11/09/25 Loc: HO.CT Attending Dr: Aureliano Jama MD Ordering Physician: Aureliano Jama MD Date of Service: 11/09/25 Procedure(s): CT shoulder RT wo IV con Accession Number(s): [id number] cc: Aureliano Jama MD; Fabiola Perdue Report Number: [id number]: Total DLP = 474.00 mGy-cm Reason for [...] by: Edis Meza MD 11/09/2025 02:50 PM [facility] Dictated By: Edis Meza MD Signed By: <Electronically signed by Edis Meza MD in OV> 11/09/25 1450 DD/ 0729 TD/TT: 11/09/25 0742 Stave Inspector: Procedure Note Donotuseinterpreter, Image - 11/09/[address] [address] [address] Scan Report Signed Patient: Fabien Bermeo#: [id number] : 1965Acct:[id number] Age/Sex: 60 / MADM Date: 11/09/25 Loc: HO.CT Attending Dr: Aureliano Jama MD Ordering Physician: Aureliano Jama MD Date of Service: 11/09/25 Procedure(s): CT shoulder RT wo IV con Accession Number(s): [id number] cc: Aureliano Jama MD; Fabiola Perdue Report Number: [id number]: Total DLP = 474.00 mGy-cm Reason for [...] by: Edis Meza MD 11/09/2025 02:50 PM [facility] Dictated By: Edis Meza MD Signed By: <Electronically signed by Edis Meza MD in OV> 11/09/25 1450 DD/ 0729 TD/TT: 11/09/25 0742 Stave Inspector: MARIANO [facility] External Provider IMG CT PROCEDURES Final Result * Chlamydia/N. Gonorrhoeae, PCR, Urine (08/27/2025 1:18 PM EDT) Pathologist [facility] CT PCR, Urine NOT DETECTED Not Detect. [facility] Comment:A not detected test result does not exclude the possibilityof infection because test results can be affected byimproper specimen collection, concurrent antibiotic therapy,or the number of organisms in the specimen which may bebelow the sensitivity of the test. As with many diagnostictests, results from the Xpert CT/NG assay should beinterpreted in conjunction with other laboratory andclinical data available to the clinician.The Xpert CT/NG assay should not be used for the evaluationof suspected sexual abuse or for other medico-legalindications. Additional testing is recommended in anycircumstance when false positive or false negative resultscould lead to adverse medical, social or psychologicalconsequences. NG PCR, Urine NOT DETECTED Not Detect. [facility] Comment:A not detected test result does not exclude the possibilityof infection because test results can be affected byimproper specimen collection, concurrent antibiotic therapy,or the number of organisms in the specimen which may bebelow the sensitivity of the test. As with many diagnostictests, results from the Xpert CT/NG assay should beinterpreted in conjunction with other laboratory andclinical data available to the clinician.The Xpert CT/NG assay should not be used for the evaluationof suspected sexual abuse or for other medico-legalindications. Additional testing is recommended in anycircumstance when false positive or false negative resultscould lead to adverse medical, social or psychologicalconsequences. Urine (Urine, Random) 08/27/2025 1:18 PM EDT 08/27/2025 6:01 PM EDT Cinthia Tamayo NP LAB URINE ORDERABLES Final Resul t [facility] [address] [place] [phone] * Culture, Urine, Routine (08/27/2025 1:18 PM EDT) Urine Urine specimen obtained by clean catch procedure / Unknown 08/27/2025 1:18 PM EDT 08/27/2025 6:00 PM EDT Comment:UACC Narrative [facility] - 08/29/2025 10:40 AM EDT Urine Culture No growth. Specimen Source: Urine clean catch us Cinthia Tamayo CRAFT CENTER DIRECTOR LAB MICROBIOLOGY - GENERAL ORDER SASHA Final Result Performing Organization Address City/[facility]/ZIP Co de Phone Number [facility] [address] [place], [place] [phone] * Lipid Panel, Standard (07/14/2024 3:00 PM EDT) Triglycerides 91 <150 mg/dL [facility] Comment:Desirable Triglyceri de: less than 150 mg/dLBorderline High Triglyceride 150-199 mg/dLHigh Triglyceride: 200-499 mg/dLVery High Triglyceride: greater than or equal to 5OO mg/dL Cholesterol 144 <200 mg/dL [facility] Comment:Desirable Cholestero l: less than 200 mg/dLBorderline High Cholesterol: 200-239 mg/dLHigh Cholesterol: greater than 239 mg/dL LDL Cholesterol Calculated 77 <100 mg/dL [facility] Comment:Desirable LDL: less than 100 mg/dLNear Optimal/Above Optimal LDL: 110- 129 mg/dLBorderline High LDL: 130-159 mg/dLHigh LDL: 160-189 mg/dLVery High LDL: greater than or equal to 190 mg/dL HDL Cholesterol 49 >40 mg/dL [facility] Comment:Desirable HDL: great er than 40 mg/dL Note: This HDL assay may give artificially low results in patients with liver disease. Blood Venous blood specimen / Unknown 07/14/2024 3:00 PM EDT 07/14/2024 3:59 PM EDT us Fabiola Perdue MD LAB BLOOD ORDERABLES Final Res ult Performing Organization Address City/[facility]/ZIP Co de Phone Number [facility] [address] [place] [phone] * (ABNORMAL) HEPATITIS C AB W/REFL TO HCV RNA, QN, PCR (04/06/2022 4:18 PM EDT) HEPATITIS C ANTIBODY REACTIVE( A) NON-REACT JOSÉ MIGUEL [facility] INDEX 20.10(H) <1.00 [facility] Comment: Based on this result, the sample will be tested for HCV RNA by a Nucleic Acid Amplification Test (NAAT) to determine if the patient has a current active infection. 04/06/2022 4:18 PM EDT Payal Madyson LICENSED OPTICAL DISPENSER HISTORICAL/NON ORDERABLE LABS Final Result Performing Organization Address [facility] Co de Phone Number [facility] [address] * HIV 1/2 ANTIGEN/ANTIBODY,FOURTH GENERATION W/RFL (04/06/2022 4:18 PM EDT) HIV-1/2 ANTIGEN AND ANTIBODIES, 4TH GENERATION W/ REFLEX NON-REACT JOSÉ MIGUEL NON-REACT JOS[facility] MIGUEL [facility] Comment: HIV-1 antigen and HIV-1/HIV-2 [...] purpose. For additional information please refer to http://[email or web address]/faq/KOV193 (This link is being provided for informational/ educational purposes only.) The performance of this assay has not been clinically validated in patients less than 2 years old. 04/06/2022 4:18 PM EDT [facility] LAB BLOOD ORDERABLES Final Res ult Performing Organization Address [facility] Co de Phone Number [facility] [address] from Last 3 Months or Most Recently Relevant to Health Maintenance Insurance [facility] C3 * Guarantor: Amaury Bermeo Account Type Relation to Patient Date of Phone Billing Address Personal/Family Self [address] [facility] [address] [place] Care Teams Cigar Inspector Relationship Specialty Start Date End Date Fabiola Perdue MD [address] [place] [address] PCP - General Family Medicine 12/17/22
--- OUTSIDE RECORDS SUMMARY | 2025-11-20 15:25 | XMS_ITS | Encounter Summary ---
Author Organization [employer] Address [address] 7[address] [place] [address] Care Team Providers Care Karate Teacher Name Role Phone Fabiola Perdue MD Primary Care Provider [phone] Encounter Details Date Type Department Care Team (Late st Contact Info) Description 08/14/2024 Orders Only [facility] [address] [place], [place] [phone] Fabiola Perdue MD [address] [place], [place] [phone] Arthritis of left glenohumeral joint (Primary Dx) [...] Description 12/31/2025 2:15 PM EST Office Visit [facility] [address] [place] [phone] Fabiola Perdue MD [address] [place] [address] documented as of this encounter Visit Diagnoses Diagnosis Arthritis of left glenohumeral joint- Primary documented in this encounter Additional Health Concerns Assessment Noted Time PHQ-9 Depression Total Score: 0 07/14/20 24 2:09 PM EDT documented as of this encounter Care Teams Karate Teacher Relationship Specialty Start Date End Date Fabiola Perdue MD [address] [place] [address] PCP - General Family Medicine 12/17/22 documented as of this encounter
--- OUTSIDE RECORDS SUMMARY | 2025-11-20 15:25 | XMS_ITS | Encounter Summary ---
Author Organization [employer] Address [address] [place] [address] Care Team Providers Care Skip Locator Name Role Phone Fabiola Perdue MD Primary Care Provider [phone] Encounter Details Date Type Department Care Team (Late st Contact Info) Description 11/20/2025 Orders Only GENERIC EXTERNAL DATA DEPARTMENT Provider, Generic External Data Social History Tobacco Use Types Packs/Day Years [...] Description 12/31/2025 2:15 PM EST Office Visit [facility] [address] [place] [address] Fabiola Perdue MD [address] [place] [address] documented as of this encounter Procedures Procedure Name Priority Date/Time Associated Diagnosis Comments MRSA NASAL SCREEN Routine 11/20/2025 10: 00 AM EST documented in this encounter Results * MRSA Nasal Screen (11/20/2025 10:00 AM EST) MRSA Nasal PCR NEGATIVE Negative [facility] SA Nasal PCR NEGATIVE Negative [facility] MRSA Interpretation SEE NOTE [facility] Comment:MRSA target DNA not detected; SA target DNA not detected.A MRSA NEGATIVE, SA NEGATIVE test result does not precludeMRSA or SA nasal colonization. 11/20/2025 10:0 0 AM EST 11/20/2025 10:29 AM EST us Generic External Data Provider LAB MICROBIOLOGY - GENERAL ORDERABLES Final Result [facility] [address] [place] [phone] documented in this encounter Visit Diagnoses Not on filedocumented in this encounter Additional Health Concerns Assessment Noted Time PHQ-9 Depression Total Score: 0 07/14/20 24 2:09 PM EDT documented as of this encounter Care Teams Skip Locator Relationship Specialty Start Date End Date Fabiola Perdue MD [address] [place] [address] PCP - General Family Medicine 12/17/22 documented as of this encounter
--- OUTSIDE RECORDS SUMMARY | 2025-11-20 15:25 | XMS_ITS | Encounter Summary ---
Author Organization [employer] Address [address] [facility] 7t [place] [address] Care Team Providers Care Silk Winding Machine Operator Name Role Phone Fabiola Perdue MD Primary Care Provider [phone] Reason for Visit * Reason Onset Date Comments Medication Question 11/02/2024 Encounter Details Date Type Department Care Team ([facility] st Contact Info) Description 11/02/2024 Telephone [facility] [address] [place], [place] [phone] Fabiola Perdue MD [address] [place], [place] [phone] Medication Question Social History Tobacco Use Types [...] 2:15 PM EST Office Visit [facility] [address] [place] [phone] Fabiola Perdue MD [address] [place] [address] documented as of this encounter Visit Diagnoses Not on filedocumented in this encounter Additional Health Concerns Assessment Noted Time PHQ-9 Depression Total Score: 0 07/14/20 24 2:09 PM EDT documented as of this encounter Care Teams Silk Winding Machine Operator Relationship Specialty Start Date End Date Fabiola Perdue MD [address] [place] [phone] PCP - General Family Medicine 12/17/22 documented as of this encounter
--- OUTSIDE RECORDS SUMMARY | 2025-11-20 15:25 | XMS_ITS | Encounter Summary ---
Author Organization [employer] Address [address] [facility] 7t [place] [address] Care Team Providers Care Kidney Trimmer Name Role Phone Fabiola Perdue MD Primary Care Provider [phone] Reason for Visit * Reason Comments Med Refill Encounter Details Date Type Department Care Team ([facility] st Contact Info) Description 02/05/2025 Refill [facility] [address] [place], [place] [phone] Fabiola Perdue MD [address] [place], [place] [phone] Soft tissue lesion of shoulder region Social [...] Description 12/31/2025 2:15 PM EST Office Visit [facility] [address] [place] [phone] Fabiola Perdue MD [address] [place] [address] documented as of this encounter Visit Diagnoses Diagnosis Soft tissue lesion of shoulder region documented in this encounter Additional Health Concerns Assessment Noted Time PHQ-9 Depression Total Score: 0 07/14/20 24 2:09 PM EDT documented as of this encounter Care Teams Kidney Trimmer Relationship Specialty Start Date End Date Fabiola Perdue MD [address] [place] [phone] PCP - General Family Medicine 12/17/22 documented as of this encounter
--- OUTSIDE RECORDS SUMMARY | 2025-11-20 15:25 | XMS_ITS | Encounter Summary ---
Author Organization [employer] Address [address] [facility] 7t [place] [address] Care Team Providers Care Microsoft Application Developer Name Role Phone Fabiola Perdue MD Primary Care Provider [phone] Reason for Visit * Reason Onset Date Comments Appointment Request 03/30/2024 Encounter Details Date Type Department Care Team ([facility] st Contact Info) Description 03/30/2024 Telephone [facility] [address] [place], [place] [phone] Fabiola Perdue MD [address] [place], [place] [phone] Appointment Request Social History Tobacco Use Types [...] Description 12/31/2025 2:15 PM EST Office Visit [facility] [address] [place] [address] Fabiola Perdue MD [address] [place] [address] documented as of this encounter Visit Diagnoses Not on filedocumented in this encounter Additional Health Concerns Assessment Noted Time PHQ-9 Depression Total Score: 0 01/06/20 3:59 PM EST documented as of this encounter Care Teams Microsoft Application Developer Relationship Specialty Start Date End Date Fabiola Perdue MD [address] [place] [address] PCP - General Family Medicine 12/17/22 documented as of this encounter
== END 2025-11-20 14:38 | disposition home or self-care (01) ==
LOC: HO.HCS 14:09
PROVIDERS: PCP General Practice
DX: Z01.810 Encounter for preprocedural cardiovascular examination (principal); I24.9 Acute ischemic heart disease, unspecified
CPT/HCPCS: 93010; 99214

== ENCOUNTER → 2025-11-20 14:09 | Outpatient (BNVA) | payer MEDICAID, SELFPAY | PROVIDERS: PCP General Practice | DX: Z01.810 Encounter for preprocedural cardiovascular examination (principal); I24.9 Acute ischemic heart disease, unspecified | CPT/HCPCS: 93005; 99212 ==